=== PATIENT | female | born 1950 | race Caucasian/White ===

== ENCOUNTER 2016-05-04 02:30 | Emergency (ER) | payer MEDICARE, OTHER ==
[~2016-05-04] VITALS: Ht 154.9 cm; Wt 86.2 kg
[~2016-05-04 02:30] MED LIST: ACET1TAB37 PO; ASP81CT; ASPI-983 PO; ASPI-999 PO; CALC-913 PO; CALCIUM; CYCL10TA9 PO; DULO30CA3 PO; FAMO20TA3 PO; FAMO40TA72 PO; HCT25T; IBUP-1780 PO; IBUP-2055 PO; LABE100T2 PO; LEVO75TA PO; LOPE2CAP PO; LORA10TA76 PO; LOVA10TA PO; MELA1TAB15 PO; MELA5TAB14 PO; MELO15TA14 PO; MELO7.5T; METF500T4 PO; MULT-593 PO; MULTIVITAMIN; NF-LISIN40; OLME40TA16 PO; OMG1KC; OMG1KC PO; QUIN40TA PO; SENN-33 PO; SYNTHROID; TRAM50TA2 PO; TRIA1CAP4 PO; TRIA1TAB2 PO; TRM50T; VITA-189 PO; VITA150T PO; VITA2500 PO; VITA80006 PO; [UNRECOGNIZED DRUG - CODE]; [UNRECOGNIZED DRUG - OTHER] PO
[2016-05-04] MEDS ORDERED: NS IV 1000 ML 1,000 ML IV ONE (02:36)
--- NOTE | 2016-05-04 02:36 | ED GI ---
General Chief Complaint: Abdominal/GI Problems Stated Complaint: VOMITING,NAUSEA,DIARRHEA History of Present Illness Time Seen By Provider: 02:40 Initial Comments Patient reports nausea vomiting diarrhea that started around 10 PM. States she' s vomited numerous times. she has some crampiness and thinks she might be dehydrated. She tried some Zofran with minimal relief. pt denies fevers, chills , cough, sore throat. She does have some mild abdominal cramping. Allergies and Home Medications Allergies Coded Allergies: Sulfa (Sulfonamide Antibiotics) (Verified Allergy, Unknown, 03/05/08) codeine (Verified Allergy, Unknown, 03/05/08) meperidine (Verified Allergy, Unknown, 03/05/08) morphine (Verified Allergy, Unknown, 03/05/08) penicillin G (Verified Allergy, Unknown, 03/05/08) Home Medications Aspirin 81 Mg Tablet.dr 81 MG PO EVERY OTHER DAY (Reported) Calcium Carbonate/Vitamin D3 1 Each Tablet 1 TAB PO BID (Reported) Cyclobenzaprine HCl 10 Mg Tablet 10 MG PO DAILY PRN PRN MUSCLE SPASMS (Reported ) Duloxetine HCl 30 Mg Capsule.dr 30 MG PO DAILY (Reported) Labetalol HCl 100 Mg Tablet 100 MG PO BID (Reported) Levothyroxine Sodium 75 Mcg Tablet 75 MCG PO DAILY (Reported) Lovastatin 10 Mg Tablet 10 MG PO HS (Reported) Meloxicam 15 Mg Tablet 15 MG PO DAILY (Reported) Metformin HCl 500 Mg Tablet 500 MG PO BID (Reported) Multivitamin with Minerals 1 Each Tablet 1 TAB PO DAILY (Reported) Olmesartan Medoxomil 40 Mg Tablet 40 MG PO DAILY (Reported) [place] 3 Polyunsat Fatty Acids 1,000 Mg Cap 2,000 MG PO BID (Reported) TAKES 2 (1000MG) CAPSULES Quinapril HCl 40 Mg Tablet 40 MG PO EVENING (Reported) Tramadol HCl 50 Mg Tablet 50 MG PO TID PRN PRN PAIN (Reported) Review of Systems Constitutional: No chills, No fever Respiratory: No Symptoms Reported Cardiovascular: No Symptoms Reported Gastrointestinal: See HPI Genitourinary: No Symptoms Reported Musculoskeletal: no symptoms reported Skin: no symptoms reported Past Hcbygwo-Omrpjv-Kwtbaj Hx Patient Social History Recent Foreign Travel: No Contact w/Someone Who Travel: No Immunizations Up To Date Tetanus Booster (TDap): More than 5yrs Date of Influenza Vaccine: Jan 20, 2015 Surgeries HX Surgeries: Yes (LEFT RIB LYPOMA) Surgeries: Adenoidectomy, Appendectomy, Gallbladder, Hysterectomy, Tonsillectomy Respiratory Hx Respiratory Disorders: No Cardiovascular Hx Cardiac Disorders: Yes (bradycardia) Cardiac Disorders: Heart Murmur, Hypertension Neurological Hx Neurological Disorders: No Reproductive System Hx Reproductive Disorders: No Genitourinary Hx Genitourinary Disorders: No Gastrointestinal Hx Gastrointestinal Disorders: No Musculoskeletal Hx Musculoskeletal Disorders: Yes Musculoskeletal Disorders: Rheumatoid Arthritis Endocrine Hx Endocrine Disorders: Yes Endocrine Disorders: Hypothyroidsim, Diabetes, Non-Insulin dep HEENT HX ENT Disorders: No Cancer Hx Cancer: No Psychosocial Hx Psychiatric Problems: Yes Behavioral Health Disorders: Depression Integumentary HX Skin/Integumentary Disorder: No Blood Transfusions Hx Blood Disorders: Yes (OSTEOPENIA) Adverse Reaction to a Blood Tr: No Family Medical History Family Medial History: Cardiovascular disease 19 MOTHER, Onset:50's - 60 G8 BROTHER, Onset:30's - 40 G8 BROTHER, Onset:40's - 50 G8 BROTHER, Onset:30's - 40 Colon cancer 19 FATHER Diabetes mellitus 19 FATHER G8 SISTER, Onset:40's - 50 G8 SISTER G8 BROTHER Myocardial infarction G8 SISTER G8 SISTER Physical Exam Vital Signs VS - Last 72 Hours, by Label 05/04/16 05/04/16 02:35 03:41 Temp 97.7 97.7 Pulse 95 95 Resp 18 18 B/P 201/120 Pulse Ox 94 94 O2 Delivery Room Air Room Air Capillary Refill : General Appearance: WD/WN no apparent distress Respiratory: lungs clear normal breath sounds no respiratory distress Cardiovascular: regular rate, rhythm no edema Gastrointestinal: softNo distended, tenderness (very minimal tenderness diffusely) Neurologic/Psychiatric: alert oriented x 3 Skin: normal color warm/dry Progress/Results/Core Measures Results/Orders Lab Results Laboratory Tests Test 05/04/16 02:39 Range/Units Alanine Aminotransferase (ALT/SGPT) 25 0-55 U/L Albumin 4.3 3.2-4.5 G/DL Alkaline Phosphatase 64 40-136 U/L Anion Gap 14 5-14 MMOL/L Aspartate Amino Transf (AST/SGOT) 27 5-34 U/L BUN/Creatinine Ratio 23 Blood Urea Nitrogen 22 H 7-18 MG/DL Calcium Level 9.3 8.5-10.1 MG/DL Carbon Dioxide Level 23 21-32 MMOL/L Chloride Level 104 98-107 MMOL/L Creatinine 0.94 0.60-1.30 MG/DL Estimat Glomerular Filtration Rate 59 Glucose Level 126 H 70-105 MG/DL Potassium Level 3.9 3.6-5.0 MMOL/L Sodium Level 141 135-145 MMOL/L Total Bilirubin 0.5 0.1-1.0 MG/DL Total Protein 7.1 6.4-8.2 G/DL My Orders Orders-ROLANDO MOSLEY DO Comprehensive Metabolic Panel (05/04/16 02:36) Saline Lock/Iv-Start (05/04/16 02:36) Ns Iv 1000 Ml (Sodium Chloride 0.9%) (05/04/16 02:36) Ondansetron Injection (Zofran Injectio (05/04/16 02:45) Medications Given in ED Current Medications Medications Dose Ordered Sig/Winifred Route Start Time Stop Time Status Last Admin Dose Admin Ondansetron HCl 4 mg ONCE ONCE IVP 05/04/16 02:45 05/04/16 02:46 DC 05/04/16 02:50 4 MG Sodium Chloride 1,000 ml @ 0 mls/hr Q0M ONCE IV 05/04/16 02:36 05/04/16 02:39 DC 05/04/16 02:51 999 MLS/HR Vital Signs/I&O Vital Sign - Last 12Hours 05/04/16 05/04/16 02:35 03:41 Temp 97.7 97.7 Pulse 95 95 Resp 18 18 B/P 201/120 Pulse Ox 94 94 O2 Delivery Room Air Room Air Departure Impression Impression: Primary Impression: Viral gastroenteritis Disposition: 01 HOME, SELF-CARE Condition: Stable Departure-Patient Inst. Referrals: MARIO PAUL MD (PCP/Family) Primary Care Physician Patient Instructions: Viral Gastroenteritis, Adult (DC) ROLANDO MOSLEY DO May 04, 2016 02:36 ROLANDO MOSLEY DO May 04, 2016 02:36
[2016-05-04] MEDS ORDERED: METF500T4 PO (02:45)
[2016-05-04] MEDS ORDERED: ONDANSETRON 4 MG/2 ML (SDV) Z0FRAN IVP ONE (02:45)
[2016-05-04 03:10] LABS: ALBUMIN 4.3 G/DL (3.2-4.5); BILIRUBIN,TOTAL 0.5 MG/DL (0.1-1.0); CALCIUM 9.3 MG/DL (8.5-10.1); CREATININE SERUM 0.94 MG/DL (0.60-1.30); POTASSIUM 3.9 MMOL/L (3.6-5.0); TOTAL PROTEIN 7.1 G/DL (6.4-8.2)
[2016-05-04 03:41] VITALS: BP 189/103
== END 2016-05-04 03:41 | disposition home or self-care (01) ==
LOC: EDUNIT# 02:30 → ER 02:32
DX: K52.9 Noninfective gastroenteritis and colitis, unspecified (principal); E11.9 Type 2 diabetes mellitus without complications; I10 Essential (primary) hypertension; Z79.82 Long term (current) use of aspirin; Z79.84 Long term (current) use of oral hypoglycemic drugs; Z79.899 Other long term (current) drug therapy
CPT/HCPCS: 36415; 80053; 96361; 96374

== ENCOUNTER 2016-05-04 18:00 | Inpatient (IN) | payer MEDICARE, OTHER ==
[~2016-05-04] VITALS: Ht 154.9 cm; Wt 86.2 kg
--- OUTSIDE RECORDS SUMMARY | 2016-05-04 18:05 | XMS REPORT | Continuity of Care Document ---
Author Author [facility] Organization [facility] Address Unknown Phone Unavailable Care Team Providers Care Museum Director Name Role Phone MARIO PAUL MD PCP Insurance Providers Payer Name Policy Number Subscriber Name Relationship [employer] [id number] Vito Olguin 18 Self / Same As Patient [facility] [id number] Vito Olguin 16 Self / Same As Patient Advance Directives Directive Response Recorded Date/Time Advance Directives Yes 05/04/16 2:35am Health Care Power of Machinist Class B Yes 05/04/16 2:35am Organ Donor Yes 05/04/16 2:35am Resuscitation Status Full Code 05/04/16 2:35am Chief Complaint and Reason for Visit Chief Complaint Abdominal/GI Problems Reason for Visit Viral gastroenteritis Problems Active Problems Medical Problem Onset Date Status Dehydration Unknown Acute Diuretics causing adverse effect in therapeutic use Unknown Acute Viral gastroenteritis Unknown Acute Volume depletion Unknown Acute Medications Current Home Medications Medication Dose Units Route Directions Days/Qty Instructions Start Date Levothyroxine Sodium 75 Mcg 75 Mcg Oral Daily 01/30/15 Meloxicam 15 Mg 15 Mg Oral Daily 01/30/15 Duloxetine Hcl 30 Mg 30 Mg Oral Daily 01/30/15 Labetalol Hcl 100 Mg 100 Mg Oral Twice A Day 01/30/15 Quinapril Hcl 40 Mg 40 Mg Oral Evening 01/30/15 Olmesartan Medoxomil 40 Mg 40 Mg Oral Daily 01/30/15 Lovastatin 10 Mg 10 Mg Oral Bedtime 01/30/15 Tramadol Hcl 50 Mg 50 Mg Oral Three Times A Day as needed for Pain 01/30/15 [place] 3 Polyunsat Fatty Acids 1,000 Mg 2,000 Mg Oral Twice A Day TAKES 2 (1000MG) CAPSULES 01/30/15 Calcium Carbonate/Vitamin D3 1 Each 1 Tab Oral Twice A Day 01/30/15 Multivitamin With Minerals 1 Each 1 Tab Oral Daily 01/30/15 Aspirin 81 Mg 81 Mg Oral Every Other Day 01/31/15 Cyclobenzaprine Hcl 10 Mg 10 Mg Oral Daily as needed for Muscle Spasms 01/31/15 Metformin Hcl 500 Mg 500 Mg Oral Twice A Day 05/04/16 Past Home Medications Medication Directions Ordered Status Meloxicam 7.5 Mg Tablet, 03/05/08 Discontinued Tramadol Hcl 50 Mg Tab, 03/05/08 Discontinued Labetalol Hcl 100 Mg/20 Ml Soln, 03/05/08 Discontinued Hydrochlorothiazide 25 Mg Tab, 03/05/08 Discontinued Lisinopril 40 Mg Tab, 03/05/08 Discontinued [Synthroid .08] , 03/05/08 Discontinued Aspirin 81 Mg Chew, 03/05/08 Discontinued Fish Oil 1,000 Mg Cap, 03/05/08 Discontinued [Multivitamin] , 03/05/08 Discontinued [Calcium] , 03/05/08 Discontinued Metformin Hcl 500 Mg Tablet, 500 Mg Oral Twice A Day 01/30/15 Discontinued Ibuprofen 800 Mg Tablet, 800 Mg Oral Every 8HRS as needed for Pain 01/30/15 Discontinued Aspirin 81 Mg Tab.chew, 81 Mg Oral As Directed 01/30/15 Discontinued Melatonin 5 Mg Tablet, 5 Mg Oral Bedtime as needed for Insomnia 01/30/15 Discontinued Vitamin B Complex 1 Each Tablet, 1 Each Oral Afternoon 01/30/15 Discontinued Famotidine 40 Mg Tablet, 40 Mg Oral Twice A Day 01/30/15 Discontinued Loratadine 10 Mg Tablet, 10 Mg Oral Daily 01/30/15 Discontinued Triamterene/Hydrochlorothiazid 1 Each Capsule, 1 Each Oral Daily 01/30/15 Discontinued Vitamin A 25,000 Unit Capsule, 81130 Unit Oral Daily 01/30/15 Discontinued Ibuprofen 200 Mg Tablet, 800 Mg Oral Three Times A Day as needed for Pain Discontinued Melatonin/Pyridoxine 1 Each Tablet, 2.5 Mg Oral Bedtime as needed for Sleep 01/31/15 Discontinued Famotidine Tablet, 20 Mg Oral Twice A Day 01/31/15 Discontinued Triamterene/Hydrochlorothiazid 1 Each Tablet, 1 Tab Oral Daily 01/31/15 Discontinued Vitamin A 8,000 Unit Capsule, 8000 Unit Oral Daily 01/31/15 Discontinued Sennosides/Docusate Sodium 1 Each Tablet, 1 Tab Oral Twice A Day 01/31/15 Discontinued Vitamin B Complex & Vit C No.4 150 Mg Tablet, 1 Tab Oral Daily 01/31/15 Discontinued Loperamide Hcl 2 Mg Capsule, 2 Mg Oral As Directed as needed for Diarrhea Discontinued Acetaminophen/Chlorpheniramine 1 Each Tablet, 2 Tab Oral Every 4-6 Hours as needed for Cold 01/31/15 Discontinued [Zicam Rapidmelts] , 1 Tab Oral Every 6 Hours as needed for Cold Symptoms Discontinued Metformin Hcl 500 Mg Tablet, 250 Mg Oral Twice A Day 02/01/15 Discontinued Social History Social History Problem Response Recorded Date/Time Alcohol Use Denies Use 01/30/2015 1:14am Recreational Drug Use No 01/30/2015 1:14am Recent Foreign Travel No 05/04/2016 2:35am Recent Infectious Disease Exposure No 05/04/2016 2:35am Smoking Status Former Smoker 05/04/2016 2:35am Recent Hopitalizations No 05/04/2016 2:35am Query Response Start Date Stop Date Smoking Status Former Smoker Hospital Discharge Instructions No hospital discharge instructions. Plan of Care Discharge Date 05/04/16 3:41am Disposition 01 HOME, SELF-CARE Condition at Discharge Stable Instructions/Education Provided Viral Gastroenteritis, Adult (DC) Prescriptions See Medication Section Referrals MARIO PAUL MD - Primary Care Physician Functional Status No functional status results. Allergies, Adverse Reactions, Alerts Allergen Type Severity Reaction Status Last Updated Sulfa (Sulfonamide Antibiotics) ([id number]) Allergy Unknown Active 03/12 Morphine Allergy Unknown Active 03/05/08 Codeine Allergy Unknown Active 03/05/08 Meperidine Allergy Unknown Active 03/05/08 Penicillin g Allergy Unknown Active 03/05/08 Immunizations No immunization records. Vital Signs Acute Vital Signs Vital Response Date/Time Temperature (Fahrenheit) 97.7 degrees F (97.6 - 99.5) 05/04/2016 2:35am Temperature (Calculated Celsius) 36.58480 degrees C (36.4 - 37.5) 05/04/2016 2:35am Temperature Source Tympanic 05/04/2016 2:35am Pulse Rate (adult) 95 bpm (60 - 90) 05/04/2016 2:35am Respiratory Rate 18 bpm (12 - 24) 05/04/2016 2:35am O2 Sat by Pulse Oximetry 94 % (88 - 100) 05/04/2016 2:35am Blood Pressure 201/120 mm Hg 05/04/2016 2:35am Blood Pressure Mean 147 mm Hg 05/04/2016 2:35am Pain Numeric Pain Scale 9 05/04/2016 2:35am Height (Feet) 5 feet 05/04/2016 2:35am Height (Inches) 1 inches 05/04/2016 2:35am Height (Calculated Centimeters) 154.120085 cm 05/04/2016 2:35am Weight (Pounds) 190 pounds 05/04/2016 2:35am Weight (Calculated Kilograms) 86.248795 kilograms 05/04/2016 2:35am Capillary Refill Capillary Refill Less Than 3 Seconds 05/04/2016 2:35am Height 5 ft 1 in Weight 190 lb Body Mass Index 35.9 kg/m^2 Results Laboratory Results Test Name Result Units Flags Reference Collection Date/Time Result Date/ Time Comments Sodium Level 141 MMOL/L 135-145 05/04/2016 2:39am 05/04/2016 3:11am Potassium Level 3.9 MMOL/L 3.6-5.0 05/04/2016 2:39am 05/04/2016 3:11am Chloride Level 104 MMOL/L 98-107 05/04/2016 2:39am 05/04/2016 3:11am Carbon Dioxide Level 23 MMOL/L 21-32 05/04/2016 2:39am 05/04/2016 3: 11am Anion Gap 14 MMOL/L 5-14 05/04/2016 2:39am 05/04/2016 3:11am Blood Urea Nitrogen 22 MG/DL H 7-18 05/04/2016 2:39am 05/04/2016 3:11am Creatinine 0.94 MG/DL 0.60-1.30 05/04/2016 2:39am 05/04/2016 3:11am BUN/Creatinine Ratio 23 05/04/2016 2:39am 05/04/2016 3:11am Estimat Glomerular Filtration Rate 59 05/04/2016 2:39am 05/04/2016 3:11am GFR INTERPRETIVE DATA UNITS FOR ESTIMATED GFR (eGFR): mL/min/1.73 M2 REFERENCE RANGE FOR ESTIMATED GFR (eGFR) eGFR NORMAL eGFR >60 MODERATELY DECREASED eGFR 30-59 SEVERLY DECREASED eGFR 15-29 KIDNEY FAILURE <15 (OR DIALYSIS) Glucose Level 126 MG/DL H 70-105 05/04/2016 2:39am 05/04/2016 3:11am Calcium Level 9.3 MG/DL 8.5-10.1 05/04/2016 2:39am 05/04/2016 3:11am Total Bilirubin 0.5 MG/DL 0.1-1.0 05/04/2016 2:39am 05/04/2016 3:11am Alkaline Phosphatase 64 U/L 40-136 05/04/2016 2:39am 05/04/2016 3:11am Aspartate Amino Transf (AST/SGOT) 27 U/L 5-34 05/04/2016 2:39am 2016 3:11am Alanine Aminotransferase (ALT/SGPT) 25 U/L 0-55 05/04/2016 2:39am 05/04 3:11am Total Protein 7.1 G/DL 6.4-8.2 05/04/2016 2:39am 05/04/2016 3:11am Albumin 4.3 G/DL 3.2-4.5 05/04/2016 2:39am 05/04/2016 3:11am Procedures No known history of procedures. Encounters Encounter Location Arrival/Admit Date Discharge/Depart Date Attending Provider Departed Emergency Room [facility] 05/04/16 2:32am 05/04 3:41am ROLANDO MOSLEY DO Recent Diagnosis
[2016-05-04] MEDS ORDERED: LACTATED RINGERS 1,000 ML IV ONE (18:40)
[2016-05-04] MEDS ORDERED: FAMOTIDINE 20MG/2ML IV (PEPCID) IVP ONE (19:00)
[2016-05-04] MEDS ORDERED: KETOROLAC 30 MG/ML VIAL IVP ONE (19:00)
[2016-05-04] MEDS ORDERED: ONDANSETRON 4 MG/2 ML (SDV) Z0FRAN IVP ONE (19:00)
[2016-05-04 19:02] LABS: BASOPHILS % (AUTO) 0 % (0-10); EOSINOPHILS # (AUTO) 0.1 10^3/uL (0.0-0.3); EOSINOPHILS % (AUTO) 1 % (0-10); LYMPHOCYTES # (AUTO) 0.6 X 10^3 (1.0-4.0); LYMPHOCYTES % (AUTO) 8 % (12-44); MEAN CORPUSCULAR HEMOGLOBIN 31 PG (25-34); MEAN CORPUSCULAR HGB CONC 33 G/DL (32-36); MEAN CORPUSCULAR VOLUME 91 FL (80-99); MEAN PLATELET VOLUME 9.3 FL (7.4-10.4); MONOCYTES # (AUTO) 0.5 X 10^3 (0.0-1.0); MONOCYTES % (AUTO) 8 % (0-12); NEUTROPHILS # (AUTO) 5.6 X 10^3 (1.8-7.8); NEUTROPHILS % (AUTO) 83 % (42-75); PLATELET COUNT 219 10^3/uL (130-400); RED BLOOD COUNT 4.62 10^6/uL (4.35-5.85); RED CELL DISTRIBUTION WIDTH 13.5 % (10.0-14.5); WHITE BLOOD COUNT 6.7 10^3/uL (4.3-11.0)
--- NOTE | 2016-05-04 19:14 | ED Abdominal Pain ---
General Chief Complaint: Abdominal/GI Problems Stated Complaint: HEADACHE/PAIN IN ARMS, LEGS, BACK/VOMITING Nursing Triage Note: c/o vomiting/diarrhea/headache since early this morning. Sepsis Screen: No Definite Risk Source of Information: Patient, Old Records Exam Limitations: No Limitations History of Present Illness Time Seen By Provider: 18:40 Initial Comments This pleasant 65-year-old woman presents to the emergency room for a repeat visit related to nausea, vomiting, and diarrhea. She now has fever of 101.9. She has tried Zofran and Imodium at home which were not very effective. She was seen early this morning in this ER, hydrated, and given IV Zofran. Symptoms persist despite treatment. She has had intense headache since yesterday as well. She denies any respiratory or urinary symptoms other than oliguria. She has intermittent abdominal pain associated with the vomiting and diarrhea that seems to be generalized in nature. Her primary care provider is Dr. Barboza. Mucous membranes appear extremely dry. She was notably hypertensive which may be related to pain and her inability to keep medications down today. Blood pressure will be treated as necessary. She has been experiencing muscle cramping. A muscle relaxer did not improve her cramps or muscle pain. Allergies and Home Medications Allergies Coded Allergies: Sulfa (Sulfonamide Antibiotics) (Verified Allergy, Unknown, 03/05/08) codeine (Verified Allergy, Unknown, 03/05/08) meperidine (Verified Allergy, Unknown, 03/05/08) morphine (Verified Allergy, Unknown, 03/05/08) penicillin G (Verified Allergy, Unknown, 03/05/08) Home Medications Aspirin 81 Mg Tablet.dr 81 MG PO EVERY OTHER DAY (Reported) Calcium Carbonate/Vitamin D3 1 Each Tablet 1 TAB PO BID (Reported) Cyclobenzaprine HCl 10 Mg Tablet 10 MG PO DAILY PRN PRN MUSCLE SPASMS (Reported ) Duloxetine HCl 30 Mg Capsule.dr 30 MG PO DAILY (Reported) Labetalol HCl 100 Mg Tablet 100 MG PO BID (Reported) Levothyroxine Sodium 75 Mcg Tablet 75 MCG PO DAILY (Reported) Lovastatin 10 Mg Tablet 10 MG PO HS (Reported) Meloxicam 15 Mg Tablet 15 MG PO DAILY (Reported) Metformin HCl 500 Mg Tablet 500 MG PO BID (Reported) Multivitamin with Minerals 1 Each Tablet 1 TAB PO DAILY (Reported) Olmesartan Medoxomil 40 Mg Tablet 40 MG PO DAILY (Reported) [place] 3 Polyunsat Fatty Acids 1,000 Mg Cap 2,000 MG PO BID (Reported) TAKES 2 (1000MG) CAPSULES Quinapril HCl 40 Mg Tablet 40 MG PO EVENING (Reported) Tramadol HCl 50 Mg Tablet 50 MG PO TID PRN PRN PAIN (Reported) Review of Systems Constitutional: see HPI EENTM: See HPI Respiratory: No Symptoms Reported Cardiovascular: No Symptoms Reported Gastrointestinal: See HPI Genitourinary: See HPI (oliguria) Musculoskeletal: no symptoms reported Skin: no symptoms reported Psychiatric/Neurological: No Symptoms Reported Endocrine: No Symptoms Reported Hematologic/Lymphatic: No Symptoms Reported Past Apdabnp-Liiiwt-Biesdn Hx Patient Social History Alcohol Use: Denies Use Recreational Drug Use: No Smoking Status: Never a Smoker Recent Foreign Travel: No Contact w/Someone Who Travel: No Recent Infectious Disease Expo: No Recent Hopitalizations: No Physical Abuse Screen: No Sexual Abuse: No Immunizations Up To Date Tetanus Booster (TDap): More than 5yrs Date of Influenza Vaccine: Jan 20, 2015 Seasonal Allergies Seasonal Allergies: No Surgeries HX Surgeries: Yes (LEFT RIB LYPOMA) Surgeries: Adenoidectomy, Appendectomy, Gallbladder, Hysterectomy, Tonsillectomy Respiratory Hx Respiratory Disorders: No Cardiovascular Hx Cardiac Disorders: Yes (bradycardia) Cardiac Disorders: Heart Murmur, Hypertension Neurological Hx Neurological Disorders: No Reproductive System Hx Reproductive Disorders: No Genitourinary Hx Genitourinary Disorders: No Gastrointestinal Hx Gastrointestinal Disorders: No Musculoskeletal Hx Musculoskeletal Disorders: Yes Musculoskeletal Disorders: Rheumatoid Arthritis Endocrine Hx Endocrine Disorders: Yes Endocrine Disorders: Hypothyroidsim, Diabetes, Non-Insulin dep HEENT HX ENT Disorders: No Cancer Hx Cancer: No Psychosocial Hx Psychiatric Problems: Yes Behavioral Health Disorders: Depression Integumentary HX Skin/Integumentary Disorder: No Blood Transfusions Hx Blood Disorders: Yes (OSTEOPENIA) Adverse Reaction to a Blood Tr: No Family Medical History Family Medial History: Cardiovascular disease 19 MOTHER, Onset:50's - 60 G8 BROTHER, Onset:30's - 40 G8 BROTHER, Onset:40's - 50 G8 BROTHER, Onset:30's - 40 Colon cancer 19 FATHER Diabetes mellitus 19 FATHER G8 SISTER, Onset:40's - 50 G8 SISTER G8 BROTHER Myocardial infarction G8 SISTER G8 SISTER Physical Exam Vital Signs VS - Last 72 Hours, by Label 05/04/16 05/04/16 05/04/16 18:24 18:59 19:46 Temp 101.9 101.9 101.0 Pulse 90 Resp 18 B/P 204/102 Pulse Ox 94 O2 Delivery Room Air Capillary Refill : Less Than 3 Seconds General Appearance: WD/WN mild distress HEENT: PERRL/EOMI other (mucous membranes very dry) Neck: normal inspection Respiratory: lungs clear normal breath sounds no respiratory distress no accessory muscle use Cardiovascular: no edema no murmur tachycardia Gastrointestinal: normal bowel sounds soft tenderness (generalized) Extremities: normal inspection no pedal edema 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 no motor/sensory deficits alert normal mood/affect oriented x 3 Skin: normal color warm/dry Progress/Results/Core Measures Results/Orders Lab Results Laboratory Tests Test 05/04/16 18:55 05/04/16 19:10 Range/Units Alanine Aminotransferase (ALT/SGPT) 32 0-55 U/L Albumin 4.3 3.2-4.5 G/DL Alkaline Phosphatase 64 40-136 U/L Anion Gap 11 5-14 MMOL/L Aspartate Amino Transf (AST/SGOT) 31 5-34 U/L BUN/Creatinine Ratio 18 Basophils # (Auto) 0.0 0.0-0.1 10^3/uL Basophils (%) (Auto) 0 0-10 % Blood Urea Nitrogen 17 7-18 MG/DL Calcium Level 8.6 8.5-10.1 MG/DL Carbon Dioxide Level 24 21-32 MMOL/L Chloride Level 104 98-107 MMOL/L Creatinine 0.95 0.60-1.30 MG/DL Eosinophils # (Auto) 0.1 0.0-0.3 10^3/uL Eosinophils (%) (Auto) 1 0-10 % Estimat Glomerular Filtration Rate 59 Free Thyroxine 0.92 0.70-1.48 NG/DL Glucose Level 123 H 70-105 MG/DL Hematocrit 42 35-52 % Hemoglobin 14.1 11.5-16.0 G/DL Lymphocytes # (Auto) 0.6 L 1.0-4.0 X 10^3 Lymphocytes (%) (Auto) 8 L 12-44 % Magnesium Level 1.6 L 1.8-2.4 MG/DL Mean Corpuscular Hemoglobin 31 25-34 PG Mean Corpuscular Hemoglobin Concent 33 32-36 G/DL Mean Corpuscular Volume 91 80-99 FL Mean Platelet Volume 9.3 7.4-10.4 FL Monocytes # (Auto) 0.5 0.0-1.0 X 10^3 Monocytes (%) (Auto) 8 0-12 % Neutrophils # (Auto) 5.6 1.8-7.8 X 10^3 Neutrophils (%) (Auto) 83 H 42-75 % Platelet Count 219 130-400 10^3/uL Potassium Level 3.5 L 3.6-5.0 MMOL/L Red Blood Count 4.62 4.35-5.85 10^6/uL Red Cell Distribution Width 13.5 10.0-14.5 % Sodium Level 139 135-145 MMOL/L Thyroid Stimulating Hormone (TSH) 0.51 0.35-4.94 UIU/ML Total Bilirubin 0.5 0.1-1.0 MG/DL Total Creatine Kinase 43 29-168 U/L Total Protein 7.0 6.4-8.2 G/DL White Blood Count 6.7 4.3-11.0 10^3/uL Urine Bacteria FEW H /HPF Urine Bilirubin NEGATIVE NEGATIVE Urine Casts NONE /LPF Urine Clarity CLEAR Urine Color YELLOW Urine Crystals NONE /LPF Urine Culture Indicated NO Urine Glucose (UA) NEGATIVE NEGATIVE Urine Ketones NEGATIVE NEGATIVE Urine Leukocyte Esterase 1+ H NEGATIVE Urine Mucus NEGATIVE /LPF Urine Nitrite NEGATIVE NEGATIVE Urine Protein 2+ H NEGATIVE Urine RBC 0-2 /HPF Urine RBC (Auto) 4+ H NEGATIVE Urine Specific [place] 1.015 L 1.016-1.022 Urine Squamous Epithelial Cells 5-10 /HPF Urine Urobilinogen NORMAL NORMAL MG/DL Urine WBC 2-5 /HPF Urine pH 5 5-9 My Orders Orders-MICHAELA CARTER MD Cbc With Automated Diff (05/04/16 18:40) Comprehensive Metabolic Panel (05/04/16 18:40) Ua Culture If Indicated (05/04/16 18:40) Saline Lock/Iv-Start (05/04/16 18:40) Lactated Ringers (Lr 1000 Ml Iv Solution (05/04/16 18:40) Magnesium (05/04/16 18:40) Ondansetron Injection (Zofran Injectio (05/04/16 19:00) Famotidine Injection (Pepcid Injection) (05/04/16 19:00) Ketorolac Injection (Toradol Injection) (05/04/16 19:00) Labetalol Injection (Normodyne Injection (05/04/16 19:30) Thyroid Stimulating Hormone (05/04/16 19:19) Free T4 (Free Thyroxine) (05/04/16 19:19) Chest 1 View, Ap/Pa Only (05/04/16 19:20) Hyoscyamine Sl Tablet (Levsin Sl Tablet) (05/04/16 19:30) Fentanyl Injection (Sublimaze Injection (05/04/16 19:45) Creatine Kinase (05/04/16 19:37) Medications Given in ED Current Medications Medications Dose Ordered Sig/Winifred Route Start Time Stop Time Status Last Admin Dose Admin Famotidine 20 mg ONCE ONCE IVP 05/04/16 19:00 05/04/16 19:01 DC 05/04/16 19:00 20 MG Fentanyl Citrate 25 mcg ONCE ONCE IVP 05/04/16 19:45 05/04/16 19:46 DC 05/04/16 19:46 25 MCG Hyoscyamine Sulfate 0.25 mg ONCE ONCE PO 05/04/16 19:30 05/04/16 19:31 DC 05/04/16 19:34 0.25 MG Ketorolac Tromethamine 15 mg ONCE ONCE IVP 05/04/16 19:00 05/04/16 19:01 DC 05/04/16 18:59 15 MG Labetalol HCl 10 mg ONCE ONCE IV 05/04/16 19:30 05/04/16 19:31 DC 05/04/16 19:35 10 MG Lactated Ringer's 1,000 ml @ 0 mls/hr Q0M ONCE IV 05/04/16 18:40 05/04/16 18:41 DC 05/04/16 18:57 0 MLS/HR Ondansetron HCl 8 mg ONCE ONCE IVP 05/04/16 19:00 05/04/16 19:01 DC 05/04/16 19:00 8 MG Vital Signs/I&O Vital Sign - Last 12Hours 05/04/16 05/04/16 05/04/16 18:24 18:59 19:46 Temp 101.9 101.9 101.0 Pulse 90 Resp 18 B/P 204/102 Pulse Ox 94 O2 Delivery Room Air Intake and Output 05/05/16 00:00 Intake Total 1000 ml Balance 1000 ml Blood Pressure Mean: 136 Progress Note #1: Time: 19:18 Progress Note She is being given Zofran and Pepcid for her GI symptoms. IV fluids are infusing. Labs pending. Levsin will be added to reduce cramping and diarrhea. Toradol was given for headache. Progress Note #2: Progress Note Patient improved significantly with treatment. Labetalol 10 mg IV was administered for hypertensive urgency. With treatment of labetalol and control of pain, blood pressure improved significantly. Her home medications will be administered on the floor which should help control her blood pressure. A liter of IV fluids was administered. Levsin helped with abdominal cramping. Patient will be admitted for observation of her blood pressures and control of her symptoms. Departure Communication Time/Spoke to Admitting Phy: 20:[address] Christina was contacted and excepts admission for observation. He agrees with symptomatic management, IV fluids, and call parameters for blood pressure. Impression Impression: Primary Impression: Nausea vomiting and diarrhea Additional Impressions: Generalized abdominal pain Abdominal cramping Acute headache Qualified Code: R51 - Headache Hypertensive urgency Fever Qualified Code: R50.9 - Fever, unspecified Disposition: ADMITTED INPATIENT Condition: Improved Decision to Admit Reason: Admit from ER (General) Decision to Admit/Date: May 04, 2016 Time/Decision to Admit Time: 17:00 Departure-Patient Inst. Referrals: MARIO BARBOZA MD (PCP/Family) Primary Care Physician MICHAELA CARTER MD May 04, 2016 19:14
[2016-05-04 19:19] LABS: BILIRUBIN,URINE NEGATIVE (NEGATIVE); KETONES,URINE NEGATIVE (NEGATIVE); LEUKOCYTE ESTERASE ,URINE 1+ (NEGATIVE); NITRITE,URINE NEGATIVE (NEGATIVE); PH,URINE 5 (5-9); PROTEIN,URINE 2+ (NEGATIVE); UROBILINOGEN,URINE NORMAL (NORMAL)
[2016-05-04 19:28] LABS: ALBUMIN 4.3 G/DL (3.2-4.5); BILIRUBIN,TOTAL 0.5 MG/DL (0.1-1.0); CALCIUM 8.6 MG/DL (8.5-10.1); CREATININE SERUM 0.95 MG/DL (0.60-1.30); MAGNESIUM 1.6 MG/DL (1.8-2.4); POTASSIUM 3.5 MMOL/L (3.6-5.0)
[2016-05-04] MEDS ORDERED: HYOSCYAMINE 0.125 MG (LEVSIN) TAB PO ONE (19:30)
[2016-05-04] MEDS ORDERED: LABETALOL HCL 20 MG/4 ML VIAL IV ONE (19:30)
[2016-05-04] MEDS ORDERED: fentaNYL INJECTION 100 MCG/2 ML AMP IVP ONE (19:45)
--- NOTE | 2016-05-04 19:51 | Diagnostic Imaging Report ---
Indication: Vomiting, diarrhea headache Portable chest 7:34 PM Heart size and pulmonary vascularity are normal. Lungs are clear. There are no effusions or pneumothoraces. Impression: Negative chest Dictated by: Dictated on workstation # [id number]
[2016-05-04 20:04] LABS: THYROID STIMULATING HORMONE 0.51 UIU/ML (0.35-4.94)
[2016-05-04] MEDS ORDERED: D5 1/2 NS W/KCL 20 MEQ/L 1,000 ML IV ONE (22:30)
[2016-05-04] MEDS: D5 1/2 NS W/KCL 20 MEQ/L 1,000 ML IV SCH (22:41)
[2016-05-04] MEDS ORDERED: PROMETHAZINE INJ 25 MG/ML (PHENERGAN) AMP IV PRN (22:45)
[2016-05-04] MEDS: HYOSCYAMINE 0.125 MG (LEVSIN) TAB SL PRN (22:59)
[2016-05-04] MEDS: fentaNYL INJECTION 100 MCG/2 ML AMP IV PRN (22:59)
[2016-05-04 23:00] VITALS: BP 189/91
[2016-05-04] MEDS ORDERED: LABETALOL 200 MG (NORMODYNE) TAB PO ONE (23:44)
[2016-05-04] MEDS ORDERED: OLMESARTAN 20 MG (BENICAR) TABLET ONE (23:53)
[2016-05-04] MEDS: OLMESARTAN 20 MG (BENICAR) TABLET PO SCH (23:54)
[2016-05-04] MEDS: ACETAMINOPHEN 500 MG TAB (TYLENOL) PO PRN (23:58)
[2016-05-05] VITALS (8 sets, daily range): BP systolic 151–175; BP diastolic 74–88
[2016-05-05] MEDS: KETOROLAC 30 MG/ML VIAL IV PRN ×2 (02:22→14:02)
[2016-05-05] MEDS: fentaNYL INJECTION 100 MCG/2 ML AMP IV PRN ×3 (04:26→23:16)
[2016-05-05] MEDS: HYOSCYAMINE 0.125 MG (LEVSIN) TAB SL PRN ×3 (04:28→21:31)
[2016-05-05 05:25] LABS: BASOPHILS % (AUTO) 0 % (0-10); EOSINOPHILS % (AUTO) 0 % (0-10); LYMPHOCYTES # (AUTO) 0.8 X 10^3 (1.0-4.0); LYMPHOCYTES % (AUTO) 14 % (12-44); MEAN CORPUSCULAR HEMOGLOBIN 31 PG (25-34); MEAN CORPUSCULAR HGB CONC 33 G/DL (32-36); MEAN CORPUSCULAR VOLUME 92 FL (80-99); MEAN PLATELET VOLUME 9.3 FL (7.4-10.4); MONOCYTES # (AUTO) 0.3 X 10^3 (0.0-1.0); MONOCYTES % (AUTO) 5 % (0-12); NEUTROPHILS # (AUTO) 4.6 X 10^3 (1.8-7.8); NEUTROPHILS % (AUTO) 80 % (42-75); PLATELET COUNT 182 10^3/uL (130-400); RED BLOOD COUNT 4.19 10^6/uL (4.35-5.85); RED CELL DISTRIBUTION WIDTH 13.5 % (10.0-14.5); WHITE BLOOD COUNT 5.8 10^3/uL (4.3-11.0)
[2016-05-05 05:47] LABS: ALBUMIN 3.6 G/DL (3.2-4.5); BILIRUBIN,TOTAL 0.5 MG/DL (0.1-1.0); CALCIUM 8.2 MG/DL (8.5-10.1); CREATININE SERUM 1.04 MG/DL (0.60-1.30); MAGNESIUM 1.5 MG/DL (1.8-2.4); POTASSIUM 3.5 MMOL/L (3.6-5.0); TOTAL PROTEIN 5.9 G/DL (6.4-8.2)
[2016-05-05] MEDS: D5 1/2 NS W/KCL 20 MEQ/L 1,000 ML IV SCH ×3 (06:41→20:17)
--- NOTE | 2016-05-05 08:35 | History & Physicial ---
History of Present Illness History of Present Illness Reason for visit/HPI patient states she is feeling rough. Last night was patient second time to the emergency room. Patient being treated for nausea and vomiting and diarrhea. Patient has malignant hypertension at this moment. Has hypomagnesemia. Fever 101.9. Patient has been on Zofran and Imodium without success. Patient admitted. Surgeries. Consults and gallbladder and hysterectomy. Patient states she has headache and dizziness Date of Admission May 04, 2016 at 21:24 I consulted on this patient on 05/05/16 08:30 Attending Physician Marcie Barboza MD Admitting Physician Marcie Barboza MD Consult Allergies and Home Medications Allergies Coded Allergies: Sulfa (Sulfonamide Antibiotics) (Verified Allergy, Unknown, 03/05/08) codeine (Verified Allergy, Unknown, 03/05/08) meperidine (Verified Allergy, Unknown, 03/05/08) morphine (Verified Allergy, Unknown, 03/05/08) penicillin G (Verified Allergy, Unknown, 03/05/08) Home Medications Aspirin 81 Mg Tablet.dr 81 MG PO EVERY OTHER DAY (Reported) Calcium Carbonate/Vitamin D3 1 Each Tablet 1 TAB PO BID (Reported) Cyclobenzaprine HCl 10 Mg Tablet 10 MG PO DAILY PRN PRN MUSCLE SPASMS (Reported ) Duloxetine HCl 30 Mg Capsule.dr 30 MG PO DAILY (Reported) Labetalol HCl 100 Mg Tablet 100 MG PO BID (Reported) Levothyroxine Sodium 75 Mcg Tablet 75 MCG PO DAILY (Reported) Lovastatin 10 Mg Tablet 10 MG PO HS (Reported) Meloxicam 15 Mg Tablet 15 MG PO DAILY (Reported) Metformin HCl 500 Mg Tablet 500 MG PO BID (Reported) Multivitamin with Minerals 1 Each Tablet 1 TAB PO DAILY (Reported) Olmesartan Medoxomil 40 Mg Tablet 40 MG PO DAILY (Reported) [place] 3 Polyunsat Fatty Acids 1,000 Mg Cap 2,000 MG PO BID (Reported) TAKES 2 (1000MG) CAPSULES Quinapril HCl 40 Mg Tablet 40 MG PO EVENING (Reported) Tramadol HCl 50 Mg Tablet 50 MG PO TID PRN PRN PAIN (Reported) Past Jfonmkn-[place]-Rtdfcw Hx Patient Social History Alcohol Use: Denies Use Recreational Drug Use: No Smoking Status: Never a Smoker Physical Abuse Screen: No Sexual Abuse: No Recent Foreign Travel: No Contact w/other who traveled: No Recent Hopitalizations: No Recent Infectious Disease Expo: No Immunizations Up To Date Tetanus Booster (TDap): More than 5yrs Date of Influenza Vaccine: Jan 21, 2016 Seasonal Allergies Seasonal Allergies: No Surgeries HX Surgeries: Yes (LEFT RIB LYPOMA) Surgeries: Adenoidectomy, Appendectomy, Gallbladder, Hysterectomy, Tonsillectomy Respiratory Hx Respiratory Disorders: No Cardiovascular Hx Cardiovascular Disorders: Yes (bradycardia) Cardiac Disorders: Heart Murmur, Hypertension Neurological Hx Neurological Disorders: No Reproductive System Hx Reproductive Disorders: No Genitourinary Hx Genitourinary Disorders: No Gastrointestinal Hx Gastrointestinal Disorders: No Musculoskeletal Hx Musculoskeletal Disorders: Yes Musculoskeletal Disorders: Rheumatoid Arthritis Endocrine Hx Endocrine Disorders: Yes Endocrine Disorders: Hypothyroidsim, Diabetes, Non-Insulin dep HEENT HX ENT Disorders: No Cancer Hx Cancer: No Psychosocial Hx Psychiatric Problems: Yes Behavioral Health Disorders: Depression Integumentary HX Skin/Integumentary Disorder: No Blood Transfusions Hx Blood Disorders: Yes (OSTEOPENIA) Adverse Reaction to a Blood Tr: No Family Medical History Family Hx: Cardiovascular disease 19 MOTHER, Onset:50's - 60 G8 BROTHER, Onset:30's - 40 G8 BROTHER, Onset:40's - 50 G8 BROTHER, Onset:30's - 40 Colon cancer 19 FATHER Diabetes mellitus 19 FATHER G8 SISTER, Onset:40's - 50 G8 SISTER G8 BROTHER Myocardial infarction G8 SISTER G8 SISTER Constitutional: fever malaise weakness other (dry vomit dehydrated) EENTM: no symptoms reported Respiratory: no symptoms reported Cardiovascular: no symptoms reported Gastrointestinal: diarrhea nausea vomiting Genitourinary: no symptoms reported Physical Exam Vital Signs Vital Sign - Last 12Hours 05/04/16 18:24 Temp 101.9 Pulse 90 Resp 18 B/P 204/102 Pulse Ox 94 O2 Delivery Room Air Capillary Refill : Less Than 3 Seconds General Appearance: No Apparent Distress Mild Distress Eyes: Bilateral Eye Normal Inspection HEENT: Normal ENT Inspection Neck: Full Range of Motion Normal Inspection Non Tender Respiratory: Lungs Clear Normal Breath Sounds No Accessory Muscle Use No Respiratory Distress Cardiovascular: Regular Rate, Rhythm No Murmur Gastrointestinal: Non Tender Soft Assessment/Plan Assessment and Plan nausea and vomiting. Diarrhea. Headache. Malignant hypertension. Clinical Quality Measures DVT/VTE Risk/Contraindication: Risk Factor Score Per Nursin RFS Level Per Nursing on Admit: 4+=Very High SHERRY WHITE DO May 05, 2016 08:34
[2016-05-05] MEDS ORDERED: NON-FORMULARY MEDICATION 1 EA EA (Olmesartan Medoxomil (Benicar) 40 MG) PO SCH (09:00)
[2016-05-05] MEDS ORDERED: NON-FORMULARY MEDICATION 1 EA EA (Labetalol HCl 100 MG) PO SCH (09:00)
[2016-05-05] MEDS: OLMESARTAN 20 MG (BENICAR) TABLET PO SCH (09:13)
[2016-05-05] MEDS: LABETALOL 200 MG (NORMODYNE) TAB PO SCH ×2 (09:14→21:29)
[2016-05-05] MEDS: DULoxetine 30 MG (CYMBALTA) CAP PO SCH (10:30)
[2016-05-05] MEDS: MAGNESIUM 1 GM/100 ML IVPB 100 ML IV SCH ×2 (10:30→13:03)
[2016-05-05] MEDS: ENOXAPARIN 40 MG/0.4 ML (LOVENOX) SYR SC SCH (10:31)
[2016-05-05] MEDS: LEVOTHYROXINE 75 MCG (LEVOTHROID) TABLET PO SCH (10:31)
[2016-05-05] MEDS: ACETAMINOPHEN 500 MG TAB (TYLENOL) PO PRN ×2 (11:29→20:22)
[2016-05-06] VITALS (7 sets, daily range): BP systolic 142–186; BP diastolic 70–87
[2016-05-06] MEDS: ACETAMINOPHEN 500 MG TAB (TYLENOL) PO PRN (01:22)
[2016-05-06] MEDS: metroNIDAZOLE 500MG/100ML IVPB 100 ML IV SCH ×4 (01:23→22:03)
[2016-05-06] MEDS: KETOROLAC 30 MG/ML VIAL IV PRN ×2 (01:30→12:57)
[2016-05-06 01:46] LABS: BASOPHILS % (AUTO) 0 % (0-10); EOSINOPHILS % (AUTO) 0 % (0-10); LYMPHOCYTES # (AUTO) 0.2 X 10^3 (1.0-4.0); LYMPHOCYTES % (AUTO) 4 % (12-44); MEAN CORPUSCULAR HEMOGLOBIN 30 PG (25-34); MEAN CORPUSCULAR HGB CONC 33 G/DL (32-36); MEAN CORPUSCULAR VOLUME 92 FL (80-99); MEAN PLATELET VOLUME 9.5 FL (7.4-10.4); MONOCYTES % (AUTO) 1 % (0-12); NEUTROPHILS # (AUTO) 3.3 X 10^3 (1.8-7.8); NEUTROPHILS % (AUTO) 95 % (42-75); PLATELET COUNT 133 10^3/uL (130-400); RED BLOOD COUNT 4.57 10^6/uL (4.35-5.85); RED CELL DISTRIBUTION WIDTH 13.4 % (10.0-14.5); WHITE BLOOD COUNT 3.5 10^3/uL (4.3-11.0)
[2016-05-06 02:03] LABS: ALBUMIN 3.7 G/DL (3.2-4.5); CALCIUM 8.1 MG/DL (8.5-10.1); CREATININE SERUM 0.99 MG/DL (0.60-1.30); POTASSIUM 3.7 MMOL/L (3.6-5.0); TOTAL PROTEIN 6.2 G/DL (6.4-8.2)
[2016-05-06] MEDS: ONDANSETRON 4 MG/2 ML (SDV) Z0FRAN IV PRN ×2 (02:10→17:36)
[2016-05-06] MEDS ORDERED: IBUPROFEN TABLET 200 MG TAB PO PRN (02:15)
[2016-05-06] MEDS: LEVOFLOXACIN 750 MG/150 ML IV 150 ML IV SCH ×2 (02:57→08:56)
[2016-05-06] MEDS: HYOSCYAMINE 0.125 MG (LEVSIN) TAB SL PRN ×3 (03:45→20:52)
[2016-05-06] MEDS: fentaNYL INJECTION 100 MCG/2 ML AMP IV PRN (03:49)
[2016-05-06] MEDS: LEVOTHYROXINE 75 MCG (LEVOTHROID) TABLET PO SCH (06:07)
[2016-05-06 06:12] LABS: BASOPHILS % (AUTO) 0 % (0-10); EOSINOPHILS % (AUTO) 0 % (0-10); LYMPHOCYTES # (AUTO) 0.2 X 10^3 (1.0-4.0); LYMPHOCYTES % (AUTO) 4 % (12-44); MEAN CORPUSCULAR HEMOGLOBIN 31 PG (25-34); MEAN CORPUSCULAR HGB CONC 34 G/DL (32-36); MEAN CORPUSCULAR VOLUME 92 FL (80-99); MEAN PLATELET VOLUME 9.3 FL (7.4-10.4); MONOCYTES # (AUTO) 0.1 X 10^3 (0.0-1.0); MONOCYTES % (AUTO) 1 % (0-12); NEUTROPHILS # (AUTO) 5.1 X 10^3 (1.8-7.8); NEUTROPHILS % (AUTO) 96 % (42-75); PLATELET COUNT 122 10^3/uL (130-400); RED BLOOD COUNT 3.91 10^6/uL (4.35-5.85); RED CELL DISTRIBUTION WIDTH 13.1 % (10.0-14.5); WHITE BLOOD COUNT 5.3 10^3/uL (4.3-11.0)
[2016-05-06 06:29] LABS: ALANINE AMINOTRANSFERASE 507 U/L (0-55); ALBUMIN 3.1 G/DL (3.2-4.5); ANION GAP 9 MMOL/L (5-14); ASPARTATE AMINO TRANSFERASE 669 U/L (5-34); BILIRUBIN,TOTAL 0.6 MG/DL (0.1-1.0); BLOOD UREA NITROGEN 12 MG/DL (7-18); BUN/CREATININE RATIO 14; CALCIUM 7.5 MG/DL (8.5-10.1); CARBON DIOXIDE 19 MMOL/L (21-32); CHLORIDE 104 MMOL/L (98-107); CREATININE SERUM 0.87 MG/DL (0.60-1.30); GFR ESTIMATED > 60; GLUCOSE 150 MG/DL (70-105); MAGNESIUM 1.7 MG/DL (1.8-2.4); POTASSIUM 3.5 MMOL/L (3.6-5.0); SODIUM 132 MMOL/L (135-145); TOTAL PROTEIN 5.2 G/DL (6.4-8.2)
--- NOTE | 2016-05-06 08:44 | Diagnostic Imaging Report ---
INDICATION: Hypoxia. COMPARISON: 05/04. FINDINGS: Enlargement of the cardiac silhouette increased. There is decreased inspiratory lung volumes. There is progressive bilateral predominantly perihilar mixed interstitial and airspace opacity asymmetric greater right. Findings raise the question of sequelae of hypervolemia or failure. Given the asymmetry in the parenchymal disease pneumonia could not be entirely excluded in the appropriate scenario. IMPRESSION: Interval changes suggest likely asymmetric edema owing to failure or hypervolemia. Pneumonia could not be radiographically excluded. Dictated by: Dictated on workstation # [id number]
[2016-05-06] MEDS ORDERED: MAGNESIUM 1 GM/100 ML IVPB 100 ML IV NR (08:45)
[2016-05-06] MEDS ORDERED: KCL 10 MEQ TAB (MICRO K) PO NR (08:45)
--- NOTE | 2016-05-06 08:52 | Progress Note (SOAP) ---
Subjective Subjective/Events-last exam patient states she feels much better today. Patient states she's not shaking. Blood pressure is better. Temperature is normal. Platelet decreased to 122. White blood cell count shows many neutrophils. Potassium 3.5. Wheezing 1.7. He shouldn't still having diarrhea like water. Objective Exam Vital Signs Date Time Temp Pulse Resp B/P Pulse Ox O2 Delivery O2 Flow Rate FiO2 05/06/16 08:11 97.5 68 16 154/70 93 Nasal Cannula 2.00 05/06/16 04:00 100.4 86 22 142/83 95 Nasal Cannula 2.00 05/06/16 03:00 101.2 05/06/16 02:00 103.2 05/06/16 00:35 102.9 88 22 186/82 92 Nasal Cannula 2.00 05/05/16 21:00 102.3 05/05/16 20:00 101.5 75 18 160/84 96 Room Air 05/05/16 16:00 98.7 82 18 154/88 95 Room Air 05/05/16 14:02 99.3 05/05/16 13:22 99.3 05/05/16 12:50 101.9 80 18 152/74 96 Room Air 05/05/16 11:29 101.1 05/05/16 09:55 100.5 05/05/16 09:14 100.5 I & O 05/06/16 07:00 Intake Total 880 ml Output Total 607 ml Balance 273 ml Capillary Refill : Less Than 3 Seconds General Appearance: No Apparent Distress WD/WN HEENT: Normal ENT Inspection Neck: Normal Inspection Non Tender Respiratory: Chest Non Tender Lungs Clear Normal Breath Sounds No Accessory Muscle Use No Respiratory Distress Cardiovascular: Regular Rate, Rhythm No Murmur Gastrointestinal: soft other (discomfort in right upper quadrant) Results Lab Laboratory Tests 05/06/16 01:30: Alanine Aminotransferase (ALT/SGPT) 250H, Albumin 3.7, Alkaline Phosphatase 72, Anion Gap 9, Aspartate Amino Transf (AST/SGOT) 271H, BUN/Creatinine Ratio 11, Basophils # (Auto) 0.0, Basophils (%) (Auto) 0, Blood Urea Nitrogen 11, Calcium Level 8.1L, Carbon Dioxide Level 20L, Chloride Level 104, Creatinine 0.99, Eosinophils # (Auto) 0.0, Eosinophils (%) (Auto) 0, Estimat Glomerular Filtration Rate 56, Glucose Level 146H, Hematocrit 42, Hemoglobin 13.9, Lactic Acid Level 1.4, Lymphocytes # (Auto) 0.2L, Lymphocytes (%) (Auto) 4L, Mean Corpuscular Hemoglobin 30, Mean Corpuscular Hemoglobin Concent 33, Mean Corpuscular Volume 92, Mean Platelet Volume 9.5, Monocytes # (Auto) 0.0, Monocytes (%) (Auto) 1, Neutrophils # (Auto) 3.3, Neutrophils (%) (Auto) 95H, Platelet Count 133, Potassium Level 3.7, Red Blood Count 4.57, Red Cell Distribution Width 13.4, Sodium Level 133L, Total Bilirubin 1.0, Total Protein 6.2L, White Blood Count 3.5L 05/06/16 06:05: Alanine Aminotransferase (ALT/SGPT) 507H, Albumin 3.1L, Alkaline Phosphatase 60 , Anion Gap 9, Aspartate Amino Transf (AST/SGOT) 669H, BUN/Creatinine Ratio 14, Basophils # (Auto) 0.0, Basophils (%) (Auto) 0, Blood Urea Nitrogen 12, Calcium Level 7.5L, Carbon Dioxide Level 19L, Chloride Level 104, Creatinine 0.87, Eosinophils # (Auto) 0.0, Eosinophils (%) (Auto) 0, Estimat Glomerular Filtration Rate > 60, Glucose Level 150H, Hematocrit 36, Hemoglobin 12.2, Lymphocytes # (Auto) 0.2L, Lymphocytes (%) (Auto) 4L, Mean Corpuscular Hemoglobin 31, Mean Corpuscular Hemoglobin Concent 34, Mean Corpuscular Volume 92, Mean Platelet Volume 9.3, Monocytes # (Auto) 0.1, Monocytes (%) (Auto) 1, Neutrophils # (Auto) 5.1, Neutrophils (%) (Auto) 96H, Platelet Count 122L, Potassium Level 3.5L, Red Blood Count 3.91L, Red Cell Distribution Width 13.1, Sodium Level 132L, Total Bilirubin 0.6, Total Protein 5.2L, White Blood Count 5.3, B-Type Natriuretic Peptide 238.0H, Magnesium Level 1.7L Microbiology 05/05/16 C. difficile GDH Antigen & Toxins - Final, Complete 05/05/16 Influenza Types A,B Antigen (SHARATH) - Final, Complete Assessment/Plan Assessment/Plan Assess & Plan/Chief Complaint nausea. Vomiting. Diarrhea. Headache. Hypertension. Elevated liver tests. Thrombocytopenia. Elevated neutrophils. Elevated liver tests. Diagnosis/Problems: Clinical Quality Measures DVT/VTE Risk/Contraindication: Risk Factor Score Per Nursin RFS Level Per Nursing on Admit: 4+=Very High SHERRY WHITE DO May 06, 2016 08:52
[2016-05-06] MEDS: ENOXAPARIN 40 MG/0.4 ML (LOVENOX) SYR SC SCH (08:56)
[2016-05-06] MEDS: D5 NS W/KCL 20 MEQ/L 1,000 ML IV SCH ×2 (08:57→22:04)
[2016-05-06] MEDS: LABETALOL 200 MG (NORMODYNE) TAB PO SCH ×2 (10:54→20:45)
[2016-05-06] MEDS: DULoxetine 30 MG (CYMBALTA) CAP PO SCH (10:54)
[2016-05-06] MEDS: OLMESARTAN 20 MG (BENICAR) TABLET PO SCH (10:55)
--- NOTE | 2016-05-06 13:43 | Diagnostic Imaging Report ---
INDICATION: Elevated liver enzymes. TECHNIQUE: Grayscale sonographic images the of right upper quadrant of the abdomen. FINDINGS: The liver measures approximately 19 cm, borderline enlarged. There is overall relatively uniform echotexture without definitive focal lesion. The gallbladder appears to be absent. The common bile duct, upper limits of normal, post cholecystectomy at 1 cm. Pancreas is largely obscured. Very limited imaging of the right kidney, unremarkable. IMPRESSION: 1. Postcholecystectomy changes. 2. Borderline hepatomegaly. Dictated by: Dictated on workstation # [id number]
[2016-05-06] MEDS ORDERED: ASPIRIN 325 MG (5 GR) TABLET PO PRN (14:00)
[2016-05-07] VITALS: BP 152/80
[2016-05-07 04:00] VITALS: BP 183/77
[2016-05-07] MEDS: D5 NS W/KCL 20 MEQ/L 1,000 ML IV SCH ×3 (05:00→23:58)
[2016-05-07] MEDS: LEVOTHYROXINE 75 MCG (LEVOTHROID) TABLET PO SCH (05:43)
[2016-05-07] MEDS: metroNIDAZOLE 500MG/100ML IVPB 100 ML IV SCH ×3 (05:44→22:02)
[2016-05-07] MEDS: HYOSCYAMINE 0.125 MG (LEVSIN) TAB SL PRN (05:44)
[2016-05-07 06:49] LABS: BASOPHILS % (AUTO) 0 % (0-10); EOSINOPHILS # (AUTO) 0.2 10^3/uL (0.0-0.3); EOSINOPHILS % (AUTO) 6 % (0-10); LYMPHOCYTES # (AUTO) 0.8 X 10^3 (1.0-4.0); LYMPHOCYTES % (AUTO) 28 % (12-44); MEAN CORPUSCULAR HEMOGLOBIN 30 PG (25-34); MEAN CORPUSCULAR HGB CONC 33 G/DL (32-36); MEAN CORPUSCULAR VOLUME 91 FL (80-99); MEAN PLATELET VOLUME 9.9 FL (7.4-10.4); MONOCYTES # (AUTO) 0.2 X 10^3 (0.0-1.0); MONOCYTES % (AUTO) 6 % (0-12); NEUTROPHILS # (AUTO) 1.6 X 10^3 (1.8-7.8); NEUTROPHILS % (AUTO) 60 % (42-75); PLATELET COUNT 140 10^3/uL (130-400); RED BLOOD COUNT 4.09 10^6/uL (4.35-5.85); RED CELL DISTRIBUTION WIDTH 13.2 % (10.0-14.5); WHITE BLOOD COUNT 2.7 10^3/uL (4.3-11.0)
[2016-05-07 07:09] LABS: ALANINE AMINOTRANSFERASE 627 U/L (0-55); ALBUMIN 3.1 G/DL (3.2-4.5); ANION GAP 7 MMOL/L (5-14); ASPARTATE AMINO TRANSFERASE 489 U/L (5-34); BILIRUBIN,TOTAL 0.3 MG/DL (0.1-1.0); BLOOD UREA NITROGEN 9 MG/DL (7-18); BUN/CREATININE RATIO 10; CALCIUM 7.8 MG/DL (8.5-10.1); CARBON DIOXIDE 20 MMOL/L (21-32); CHLORIDE 113 MMOL/L (98-107); CREATININE SERUM 0.92 MG/DL (0.60-1.30); GFR ESTIMATED > 60; GLUCOSE 103 MG/DL (70-105); MAGNESIUM 1.7 MG/DL (1.8-2.4); POTASSIUM 3.7 MMOL/L (3.6-5.0); SODIUM 140 MMOL/L (135-145); TOTAL PROTEIN 5.1 G/DL (6.4-8.2)
[2016-05-07 08:24] VITALS: BP 169/92
[2016-05-07] MEDS: ENOXAPARIN 40 MG/0.4 ML (LOVENOX) SYR SC SCH (08:46)
[2016-05-07] MEDS: DULoxetine 30 MG (CYMBALTA) CAP PO SCH (08:46)
[2016-05-07] MEDS: OLMESARTAN 20 MG (BENICAR) TABLET PO SCH (08:47)
[2016-05-07] MEDS: LABETALOL 200 MG (NORMODYNE) TAB PO SCH ×2 (08:47→20:47)
[2016-05-07] MEDS: LEVOFLOXACIN 750 MG/150 ML IV 150 ML IV SCH (08:47)
[2016-05-07] MEDS: KETOROLAC 30 MG/ML VIAL IV PRN ×2 (08:47→22:01)
--- NOTE | 2016-05-07 09:31 | Progress Note (SOAP) ---
Subjective Subjective/Events-last exam PT REPORTS THAT SHE IS FEELING BETTER, BUT HER STOMACH IS STILL RUMBLING AND UNCOMFORTABLE. SHE REPORTS THAT SHE IS FATIGUED, BUT DOES NOT HAVE CHEST PAIN. Review of Systems General: Fatigue Pulmonary: No Dyspnea, No Cough Cardiovascular: No: Chest Pain, Palpitations Gastrointestinal: : Abdominal Pain: Nausea Genitourinary: No Dysuria Musculoskeletal: No: back pain Neurological: No: Confusion, Weakness Objective Exam Vital Signs Date Time Temp Pulse Resp B/P Pulse Ox O2 Delivery O2 Flow Rate FiO2 05/07/16 08:24 98.2 61 22 169/92 97 Room Air 05/07/16 04:00 97.8 65 18 183/77 97 Room Air 05/07/16 00:00 99.3 64 18 152/80 98 Room Air 05/06/16 20:00 97.4 60 20 177/85 97 Room Air 05/06/16 18:20 97.3 05/06/16 17:37 97.3 05/06/16 16:00 97.3 82 22 161/74 95 Room Air 05/06/16 13:30 97.5 05/06/16 12:57 97.5 05/06/16 12:00 98.8 86 22 178/81 94 Room Air I & O 05/07/16 07:00 Intake Total 3900 ml Output Total 2200 ml Balance 1700 ml Capillary Refill : Less Than 3 Seconds General Appearance: No Apparent Distress WD/WN HEENT: PERRL/EOMI Pharynx Normal Neck: Full Range of Motion Supple Respiratory: Chest Non Tender Lungs Clear Normal Breath Sounds Cardiovascular: Regular Rate, Rhythm Gastrointestinal: normal bowel sounds tenderness (OVER EPIGASTRIUM) Neurologic/Psychiatric: Alert Oriented x3 No Motor/Sensory Deficits Normal Mood/Affect Skin: Warm/Dry Lymphatic: No Adenopathy Results Lab Laboratory Tests 05/07/16 06:03: Alanine Aminotransferase (ALT/SGPT) 627H, Albumin 3.1L, Alkaline Phosphatase 58 , Anion Gap 7, Aspartate Amino Transf (AST/SGOT) 489H, BUN/Creatinine Ratio 10, Basophils # (Auto) 0.0, Basophils (%) (Auto) 0, Blood Urea Nitrogen 9, Calcium Level 7.8L, Carbon Dioxide Level 20L, Chloride Level 113H, Creatinine 0.92, Eosinophils # (Auto) 0.2, Eosinophils (%) (Auto) 6, Estimat Glomerular Filtration Rate > 60, Glucose Level 103, Hematocrit 37, Hemoglobin 12.3, Lymphocytes # (Auto) 0.8L, Lymphocytes (%) (Auto) 28, Magnesium Level 1.7L, Mean Corpuscular Hemoglobin 30, Mean Corpuscular Hemoglobin Concent 33, Mean Corpuscular Volume 91, Mean Platelet Volume 9.9, Monocytes # (Auto) 0.2, Monocytes (%) (Auto) 6, Neutrophils # (Auto) 1.6L, Neutrophils (%) (Auto) 60, Platelet Count 140, Potassium Level 3.7, Red Blood Count 4.09L, Red Cell Distribution Width 13.2, Sodium Level 140, Total Bilirubin 0.3, Total Protein 5.1L, White Blood Count 2.7L Microbiology 05/05/16 Blood Culture - Preliminary, Resulted No growth 05/05/16 C. difficile GDH Antigen & Toxins - Final, Complete 05/05/16 Influenza Types A,B Antigen (SHARATH) - Final, Complete Assessment/Plan Assessment/Plan Assess & Plan/Chief Complaint ELEVATED LIVER ENZYMES ABDOMINAL PAIN HYPERTENSION DIARRHEA LEUKOCYTOPENIA ELEVATED LIVER ENZYMES - WITH ABDOMINAL PAIN - CHECK CT SCAN OF ABDOMEN - CONTINUE WITH IV FLUIDS, SUPPORTIVE CARE. FURTHER TREATMENT DEPENDED ON CT SCAN - WHICH WAS BENIGN. HYPERTENSION - IMPROVED - CONTINUE WITH CURRENT TREATMENT. DIARRHEA - LIKELY VIRAL - MONITOR SYMPTOMS. 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 Diagnosis/Problems: Clinical Quality Measures DVT/VTE Risk/Contraindication: Risk Factor Score Per Nursin RFS Level Per Nursing on Admit: 4+=Very High MARIO PAUL MD May 07, 2016 09:30
[2016-05-07] MEDS ORDERED: NS 100 ML (IVPB) BAG IV ONE (10:30)
[2016-05-07] MEDS ORDERED: IOHEXOL 350 MG/ML 100 ML (OMNIPAQUE 350) VIAL IV ONE (10:30)
--- NOTE | 2016-05-07 11:00 | Diagnostic Imaging Report ---
PROCEDURE: CT abdomen and pelvis with and without contrast. TECHNIQUE: Precontrast acquisitions were acquired through the abdomen and pelvis. Multiple contiguous axial images were obtained through the abdomen and pelvis after the administration of intravenous contrast. INDICATION: Elevated liver enzymes. Upper abdominal pain, diarrhea, nausea, and vomiting. CONTRAST: 100 mL of Omnipaque 350 was administered intravenously. FINDINGS: The lung bases demonstrate minimal atelectasis. There is a diffuse mild degree of hepatic steatosis. The portal vein is patent. There is mild dilatation of the CBD which is at the upper limits of normal for the patient's age and considering prior cholecystectomy. The caliber is 1.1 cm. The pancreatic duct is not significantly dilated. Cholecystectomy clips are seen. The spleen is not enlarged. The adrenals and pancreatic parenchyma appear unremarkable. The kidneys have symmetric enhancement and contrast excretion. There is no hydronephrosis. The unenhanced phase demonstrates no urinary tract stones. There is no fluid collection or abscess in the abdomen or pelvis. There is a nonspecific minimal amount of free pelvic fluid seen. There is prominent fluid content within the right colon and distal small bowel loops which may relate to enteritis. No bowel obstruction. No significant bowel wall thickening is identified. There is a tiny fat-containing umbilical hernia. The osseous structures demonstrate degenerative changes at L5-S1 and the sacroiliac joints. The abdominal aorta is normal in caliber. No periaortic significantly enlarged lymph nodes are seen. IMPRESSION: 1. Increased fluid content in some small bowel loops and in the right side of the colon, presumably secondary to inflammatory or infectious enteritis. 2. Hepatic steatosis. 3. Tiny fat-containing umbilical hernia. Dictated by: Dictated on workstation # [id number]
[2016-05-07] MEDS: fentaNYL INJECTION 100 MCG/2 ML AMP IV PRN ×2 (11:58)
[2016-05-07] MEDS: methylPREDNISolone 125 MG (Solu-MEDROL) VIAL IVP SCH ×2 (11:58→18:17)
[2016-05-07 12:00] VITALS: BP 173/95
[2016-05-07 16:35] VITALS: BP 179/93
[2016-05-07 20:20] VITALS: BP 182/94
[2016-05-08] VITALS: BP 186/80
[2016-05-08] MEDS: methylPREDNISolone 125 MG (Solu-MEDROL) VIAL IVP SCH ×5 (00:01→23:22)
[2016-05-08 04:00] VITALS: BP 175/80
[2016-05-08] MEDS: metroNIDAZOLE 500MG/100ML IVPB 100 ML IV SCH ×3 (05:52→21:28)
[2016-05-08] MEDS: LEVOTHYROXINE 75 MCG (LEVOTHROID) TABLET PO SCH (05:53)
[2016-05-08 08:00] VITALS: BP 140/90
[2016-05-08] MEDS: OLMESARTAN 20 MG (BENICAR) TABLET PO SCH (08:25)
[2016-05-08] MEDS: DULoxetine 30 MG (CYMBALTA) CAP PO SCH (08:25)
[2016-05-08] MEDS: LABETALOL 200 MG (NORMODYNE) TAB PO SCH ×2 (08:26→20:34)
[2016-05-08] MEDS: LEVOFLOXACIN 750 MG/150 ML IV 150 ML IV SCH (08:26)
[2016-05-08] MEDS: ENOXAPARIN 40 MG/0.4 ML (LOVENOX) SYR SC SCH (08:27)
[2016-05-08 09:25] LABS: ALANINE AMINOTRANSFERASE 440 U/L (0-55); ALBUMIN 3.6 G/DL (3.2-4.5); ANION GAP 12 MMOL/L (5-14); ASPARTATE AMINO TRANSFERASE 158 U/L (5-34); BILIRUBIN,TOTAL 0.3 MG/DL (0.1-1.0); BLOOD UREA NITROGEN 9 MG/DL (7-18); BUN/CREATININE RATIO 10; CALCIUM 8.2 MG/DL (8.5-10.1); CARBON DIOXIDE 20 MMOL/L (21-32); CHLORIDE 108 MMOL/L (98-107); CREATININE SERUM 0.91 MG/DL (0.60-1.30); GFR ESTIMATED > 60; GLUCOSE 245 MG/DL (70-105); POTASSIUM 3.2 MMOL/L (3.6-5.0); SODIUM 140 MMOL/L (135-145)
--- NOTE | 2016-05-08 09:28 | Progress Note (SOAP) ---
Subjective Subjective/Events-last exam pt reports that she is feeling better today - she reports that she is having less abdominal discomfort today - however is a little bloated. Review of Systems General: Fatigue Malaise HEENT: No Head Aches Pulmonary: No Dyspnea, No Cough Cardiovascular: No: Chest Pain Gastrointestinal: : Abdominal PainNo: Nausea Genitourinary: No Dysuria Musculoskeletal: No: back pain Neurological: No: Confusion, Weakness Objective Exam Vital Signs Date Time Temp Pulse Resp B/P Pulse Ox O2 Delivery O2 Flow Rate FiO2 05/08/16 08:00 98.9 69 18 140/90 97 Room Air 05/08/16 04:00 98.4 61 18 175/80 95 Room Air 05/08/16 00:00 97.0 66 18 186/80 98 Room Air 05/07/16 20:30 98 Room Air 2.00 05/07/16 20:20 99.0 66 16 182/94 94 Room Air 05/07/16 16:35 98.2 60 20 179/93 98 Room Air 05/07/16 12:00 98.1 61 18 173/95 97 Room Air I & O 05/08/16 07:00 Intake Total 2940 ml Output Total 2950 ml Balance -10 ml Capillary Refill : Less Than 3 Seconds General Appearance: No Apparent Distress WD/WN HEENT: PERRL/EOMI Pharynx Normal Neck: Full Range of Motion Normal Inspection Non Tender Supple Respiratory: Chest Non Tender Lungs Clear Normal Breath Sounds Cardiovascular: Regular Rate, Rhythm No Edema Gastrointestinal: normal bowel sounds soft tenderness Extremity: Normal Capillary Refill No Pedal Edema Neurologic/Psychiatric: Alert Oriented x3 No Motor/Sensory Deficits Normal Mood/Affect Skin: Warm/Dry Lymphatic: No Adenopathy Results Lab Laboratory Tests 05/08/16 08:55: Alanine Aminotransferase (ALT/SGPT) 440H, Albumin 3.6, Alkaline Phosphatase 71, Anion Gap 12, Aspartate Amino Transf (AST/SGOT) 158H, BUN/Creatinine Ratio 10, Blood Urea Nitrogen 9, Calcium Level 8.2L, Carbon Dioxide Level 20L, Chloride Level 108H, Creatinine 0.91, Estimat Glomerular Filtration Rate > 60, Glucose Level 245H, Potassium Level 3.2L, Sodium Level 140, Total Bilirubin 0.3, Total Protein 6.0L Microbiology 05/06/16 Blood Culture - Preliminary, Resulted No growth 05/05/16 C. difficile GDH Antigen & Toxins - Final, Complete 05/05/16 Influenza Types A,B Antigen (SHARATH) - Final, Complete Assessment/Plan Assessment/Plan Assess & Plan/Chief Complaint ELEVATED LIVER ENZYMES ABDOMINAL PAIN HYPERTENSION DIARRHEA LEUKOCYTOPENIA ELEVATED LIVER ENZYMES - WITH ABDOMINAL PAIN -CT OF ABDOMEN - NEGATIVE - ELEVATED LIVER ENZYMES IMPROVED - CONTINUE WITH IV FLUIDS, SUPPORTIVE CARE. HYPERTENSION - IMPROVED - CONTINUE WITH CURRENT TREATMENT. DIARRHEA - LIKELY VIRAL - MONITOR SYMPTOMS. 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 Diagnosis/Problems: Clinical Quality Measures DVT/VTE Risk/Contraindication: Risk Factor Score Per Nursin RFS Level Per Nursing on Admit: 4+=Very High MARIO PAUL MD May 08, 2016 09:28
[2016-05-08] MEDS ORDERED: SIMETHICONE 80 MG (MYLICON) CHEW PO NR (09:30)
[2016-05-08] MEDS: D5 NS W/KCL 20 MEQ/L 1,000 ML IV SCH (11:56)
[2016-05-08 12:00] VITALS: BP 154/88
[2016-05-08] MEDS: SIMETHICONE 80 MG (MYLICON) CHEW PO SCH ×3 (14:15→20:31)
[2016-05-08 16:00] VITALS: BP 128/84
[2016-05-08] MEDS: CATHETER FLUSH 10 ML SYR IV PRN ×2 (21:28→23:22)
[2016-05-09] VITALS: BP 165/80
[2016-05-09 05:07] LABS: MEAN PLATELET VOLUME 10.3 FL (7.4-10.4); RED BLOOD COUNT 4.38 10^6/uL (4.35-5.85); RED CELL DISTRIBUTION WIDTH 12.9 % (10.0-14.5); WHITE BLOOD COUNT 7.7 10^3/uL (4.3-11.0)
[2016-05-09 05:26] LABS: ALANINE AMINOTRANSFERASE 341 U/L (0-55); ALBUMIN 3.6 G/DL (3.2-4.5); ANION GAP 16 MMOL/L (5-14); ASPARTATE AMINO TRANSFERASE 104 U/L (5-34); BILIRUBIN,TOTAL 0.3 MG/DL (0.1-1.0); BLOOD UREA NITROGEN 14 MG/DL (7-18); BUN/CREATININE RATIO 15; CALCIUM 8.3 MG/DL (8.5-10.1); CARBON DIOXIDE 19 MMOL/L (21-32); CHLORIDE 107 MMOL/L (98-107); CREATININE SERUM 0.91 MG/DL (0.60-1.30); GFR ESTIMATED > 60; GLUCOSE 195 MG/DL (70-105); POTASSIUM 3.3 MMOL/L (3.6-5.0); SODIUM 142 MMOL/L (135-145)
[2016-05-09] MEDS: methylPREDNISolone 125 MG (Solu-MEDROL) VIAL IVP SCH (05:35)
[2016-05-09] MEDS: LEVOTHYROXINE 75 MCG (LEVOTHROID) TABLET PO SCH (05:35)
[2016-05-09] MEDS: metroNIDAZOLE 500MG/100ML IVPB 100 ML IV SCH (05:35)
[2016-05-09 08:00] VITALS: BP 140/90
[2016-05-09] MEDS: LEVOFLOXACIN 750 MG/150 ML IV 150 ML IV SCH (08:22)
[2016-05-09] MEDS: SIMETHICONE 80 MG (MYLICON) CHEW PO SCH (08:23)
[2016-05-09] MEDS: DULoxetine 30 MG (CYMBALTA) CAP PO SCH (08:23)
[2016-05-09] MEDS: OLMESARTAN 20 MG (BENICAR) TABLET PO SCH (08:23)
[2016-05-09] MEDS: LABETALOL 200 MG (NORMODYNE) TAB PO SCH (08:24)
[2016-05-09] MEDS: ENOXAPARIN 40 MG/0.4 ML (LOVENOX) SYR SC SCH (08:30)
[2016-05-09] MEDS ORDERED: METF500T4 PO (08:44)
[2016-05-09] MEDS ORDERED: METR500T PO (08:44)
--- NOTE | 2016-05-09 08:47 | Discharge Inst-Complex ---
PDI Med Rec & Follow Up Appt. New Medications: Metronidazole (Flagyl) 500 Mg Tablet 500 MG PO BID #14 TAB Changed Medications: Metformin HCl (Metformin HCl) 500 Mg Tablet 500 MG PO BID HOLD X 1 WEEK #60 TAB (Medication details modified) Continued Medications: Aspirin (Aspirin EC) 81 Mg Tablet.dr 81 MG PO Q48H Calcium Carbonate/Vitamin D3 (Calcium 600 + D Tablet) 1 Each Tablet 1 TAB PO BID Cyclobenzaprine HCl (Cyclobenzaprine HCl) 10 Mg Tablet 10 MG PO DAILY PRN MUSCLE SPASMS Duloxetine HCl (Cymbalta) 30 Mg Capsule.dr 30 MG PO DAILY CAP Labetalol HCl (Labetalol HCl) 100 Mg Tablet 100 MG PO BID TAB Levothyroxine Sodium (Synthroid) 75 Mcg Tablet 75 MCG PO DAILY TAB Lovastatin (Lovastatin) 10 Mg Tablet 10 MG PO HS TAB Meloxicam (Mobic) 15 Mg Tablet 15 MG PO DAILY TAB Multivitamin with Minerals (Multiple Vitamin) 1 Each Tablet 1 TAB PO DAILY TAB Olmesartan Medoxomil (Benicar) 40 Mg Tablet 40 MG PO DAILY TAB [place] 3 Polyunsat Fatty Acids (Fish Oil 1,000 mg Capsule) 1,000 Mg Cap 2000 MG PO BID TAKES 2 (1000MG) CAPSULES Quinapril HCl (Accupril) 40 Mg Tablet 40 MG PO EVENING Tramadol HCl (Tramadol HCl) 50 Mg Tablet 50 MG PO TID PRN PAIN Prescription: Transmitted to Pharmacy Activity, Diet and PDI Resume Normal Activity: Yes Discharge Diet: Other Diet (BLAND DIET X 3 MORE DAYS, THEN SLOWLY ADVANCE DIET) Drink 6-8 Glasses of Fluid/Day: Yes Driving Instructions: No Driving for 24 Hours May Return to Work/School/Day: May Return to Work (IN 5 DAYS) Symptoms to Reoprt to : Fever Over 101 Degrees F, Pain/Pressure in Shoulder , Diarrhea(Persistant), Nausea/Vomiting For Problems or Questions: Contact Your Physician, Go to Emergency Room MARIO PAUL MD May 09, 2016 08:47
--- NOTE | 2016-05-09 08:47 | Discharge Summary ---
Diagnosis/Chief Complaint Date of Admission May 06, 2016 at 11:42 Date of Discharge Discharge Date: May 09, 2016 Discharge Time: 09 Admission Diagnosis Admission Diagnosis nausea and vomiting. Diarrhea. Headache. Malignant hypertension. Discharge Diagnosis ELEVATED LIVER ENZYMES NAUSEA VOMITING ABDOMINAL PAIN MALIGNANT HYPERTENSION DIARRHEA LEUKOCYTOPENIA Reason Hospital Visit PT WAS ADMITTED TO THE HOSPITAL AFTER ACUTE ONSET OF ABDOMINAL PAIN AND PERSISTENT NAUSEA AND EMESIS WITH INABILITY TO CARE FOR HERSELF AT HOME. Discharge Summary Discharge Physical Examination Allergies: Coded Allergies: Sulfa (Sulfonamide Antibiotics) (Verified Allergy, Unknown, 03/05/08) codeine (Verified Allergy, Unknown, 03/05/08) meperidine (Verified Allergy, Unknown, 03/05/08) morphine (Verified Allergy, Unknown, 03/05/08) penicillin G (Verified Allergy, Unknown, 03/05/08) Vitals & I&Os General Appearance: Alert, Oriented X3, Cooperative, No Acute Distress HEENT: Atraumatic, PERRLA, Mucous Memb Moist/[place] Respiratory: Clear to Auscultation, Normal Air Movement Cardiovascular: Regular Rate, Normal S1, Normal S2 Abdominal: Normal Bowel Sounds, Soft, No Tenderness Extremities: No Clubbing, No Edema Skin: No Rashes, No Significant Lesion Neuro: Normal Gait, Strength at 5/5 X4 Ext, Cranial Nerves 3-12 NL Psych/Mental Status: Mental Status NL, Mood NL Hospital Course ELEVATED LIVER ENZYMES ABDOMINAL PAIN HYPERTENSION DIARRHEA LEUKOCYTOPENIA ELEVATED LIVER ENZYMES - WITH ABDOMINAL PAIN - CT OF ABDOMEN NEGATIVE - PT HAD ELEVATED LIVER ENZYMES AND WAS CONTINUED ON IV FLUIDS, SUPPORTIVE CARE. REPEAT LABS WERE IMPROVED HYPERTENSION - IMPROVED - CONTINUED WITH HOME MEDS AND ADJUSTMENTS MADE TO MEDS. DIARRHEA - LIKELY VIRAL - MONITOR SYMPTOMS. 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 THE PT WAS DISCHARGED TO HOME, PLAN FOR FOLLOW UP LABS OUTPATIENT AND RETURN TO CLINIC IN 2 WEEKS FROM [place]. Pending Labs Discharge Condition at discharge IMPROVED Instructions to patient/family Please see electonic discharge instructions given to patient. Discharge Medications Reviewed and agree with Discharge Medication list on patient's Discharge Instruction sheet Clinical Quality Measures DVT/VTE Risk/Contraindication: Risk Factor Score Per Nursin RFS Level Per Nursing on Admit: 4+=Very High MARIO PAUL MD May 09, 2016 08:47
[2016-05-09 10:35] VITALS: BP 140/90
--- NOTE | 2016-05-10 09:00 | Physician Query-General Query ---
Physician Query-General Query to Physician: What is the underlying cause of the patient's symptoms of nausea and vomiting, diarrhea, headache, fever? PHYSICIAN RESPONSE: Based on the clinical findings in the record, please respond to the query above on this document as an addendum. Possible, probable, or questionable diagnosis can be coded for INPATIENTS ONLY. Physician Response: Physician Response GASTROENTERITIS ELEVATED LIVER ENZYMES DEHYDRATION CAUSED HEADACHE If you have questions please contact: Doll Dresser: [place] Ext: [phone] Thank you for your time and cooperation. Clinical Finance Specialist/Doll Dresser This is a permanent part of the medical record ARNULFO WAGNER May 10, 2016 09:00 MARIO PAUL MD May 13, 2016 12:47
== END 2016-05-09 10:45 | disposition home or self-care (01) | DRG 392 ==
LOC: EDUNIT# 18:00 → ER 18:01 → 4TH 21:24 → UNDOADMOB 21:24 → 4TH 21:50 → OBSVTOIN 05-06 11:42 → INTOOBSV 05-06 11:42
PROVIDERS: ADMIT Family Medicine; ATTEND Family Medicine
DX: K52.9 Noninfective gastroenteritis and colitis, unspecified (principal); E86.0 Dehydration; R50.9 Fever, unspecified; R74.8 Abnormal levels of other serum enzymes; I16.0 Hypertensive urgency; R00.1 Bradycardia, unspecified; E83.42 Hypomagnesemia; D69.6 Thrombocytopenia, unspecified; E11.9 Type 2 diabetes mellitus without complications; R25.2 Cramp and spasm; D72.819 Decreased white blood cell count, unspecified; R34 Anuria and oliguria; M06.9 Rheumatoid arthritis, unspecified; E03.9 Hypothyroidism, unspecified; F32.9 Major depressive disorder, single episode, unspecified; M85.80 Other specified disorders of bone density and structure, unspecified site; R01.1 Cardiac murmur, unspecified
CPT/HCPCS: 36415; 71010; 74178; 76705; 80053; 81000; 82550; 83605; 83735; 83880; 84439; 84443; 85025; 85027; 87040; 87324; 87449; 87804; 96361; 96374; G0378

== ENCOUNTER → 2016-05-21 | Outpatient (CLI) | payer MEDICARE, OTHER ==
[~2016-05-21] MED LIST changes: +METR500T PO
--- OUTSIDE RECORDS SUMMARY | 2016-05-21 09:32 | XMS REPORT | Continuity of Care Document ---
Author Author [facility] Organization [facility] Address Unknown Phone Unavailable Care Team Providers Care Bone Drier Operator Name Role Phone MARIO PAUL MD PCP Insurance Providers Payer Name Policy Number Subscriber Name Relationship [employer] [id number] Vito Olguin 18 Self / Same As Patient [facility] [id number] Vito Olguin 18 Self / Same As Patient Advance Directives Directive Response Recorded Date/Time Advance Directives Yes 05/04/16 9:50pm Health Care Power of Software Support Representative Yes 05/04/16 9:50pm Organ Donor Yes 05/04/16 9:50pm Resuscitation Status Full Code 05/04/16 9:50pm Chief Complaint and Reason for Visit Chief Complaint NAUSEA,VOMITING,DIARHEA,HEADACHE,FEVER Reason for Visit Generalized abdominal pain Hypertensive urgency Nausea vomiting and diarrhea Viral gastroenteritis Volume depletion Problems Active Problems Medical Problem Onset Date Status Abdominal cramping Unknown Acute Acute headache Unknown Acute Dehydration Unknown Acute Diuretics causing adverse effect in therapeutic use Unknown Acute Generalized abdominal pain Unknown Acute Hypertensive urgency Unknown Acute Nausea vomiting and diarrhea Unknown Acute Viral gastroenteritis Unknown Acute Volume [...] A Day as needed for Pain 01/30/15 [place] 3 Polyunsat Fatty Acids 1,000 Mg 2,000 Mg Oral Twice A Day TAKES 2 (1000MG) CAPSULES 01/30/15 Calcium Carbonate/Vitamin D3 1 Each 1 Tab Oral Twice A Day 01/30/15 Multivitamin With Minerals 1 Each 1 Tab Oral Daily 01/30/15 Aspirin 81 Mg 81 Mg Oral Every 48 Hours 01/31/15 Cyclobenzaprine Hcl 10 Mg 10 Mg Oral Daily as needed for Muscle Spasms 01/31/15 Metformin Hcl 500 Mg 500 Mg Oral Twice A Day 60 HOLD X 1 WEEK 05/09/16 Metronidazole 500 Mg 500 Mg Oral Twice A Day 14 05/09/16 Past Home Medications Medication Directions Ordered Status [...] 01/30/15 Discontinued Vitamin A 25,000 Unit Capsule, 47796 Unit Oral Daily 01/30/15 Discontinued Ibuprofen 200 [...] Mg Oral Twice A Day 02/01/15 Discontinued Metformin Hcl 500 Mg Tablet, 500 Mg Oral Twice A Day 05/04/16 Discontinued Social History Social History Problem Response Recorded Date/Time Alcohol Use Denies Use 01/30/2015 1:14am Recreational Drug Use No 01/30/2015 1:14am Recent Foreign Travel No 05/04/2016 9:50pm Recent Infectious Disease Exposure No 05/04/2016 9:50pm Hospitalization with Isolation Denies 05/09/2016 10:49am Smoking Status Never a Smoker 05/04/2016 9:50pm Recent Hopitalizations No 05/04/2016 9:50pm Hospitalization with Isolation Denies 05/09/2016 10:49am Query Response Start Date Stop Date Smoking Status Never a Smoker Hospital Discharge Instructions Patient Instructions Physician Instructions Prescription: Transmitted to Pharmacy Resume Normal Activity: Yes Discharge Diet: Other Diet (BLAND DIET X 3 MORE DAYS, THEN SLOWLY ADVANCE DIET) Drink 6-8 Glasses of Fluid/Day: Yes Driving Instructions: No Driving for 24 Hours May Return to Work/School/Day: May Return to Work (IN 5 DAYS) Symptoms to Reoprt to DrKenisha: Fever Over 101 Degrees F, Pain/Pressure in Shoulder, Diarrhea(Persistant), Nausea/Vomiting For Problems or Questions: Contact Your Physician, Go to Emergency Room Plan of Care Discharge Date 05/09/16 10:45am Disposition 01 HOME, SELF-CARE Instructions/Education Provided Dehydration Forms Provided PDI Medical Return to Work Form Prescriptions See Medication Section Referrals [facility] (Unspecified) - 2 Weeks Reason(s) for Referral: Abdominal cramping Generalized abdominal pain Nausea vomiting and diarrhea JACQUELIN LANZA (Unspecified) - 05/22/16 Address: [place] [address] Reason(s) for Referral: 11:00AM Care Plan and Goals See Discharge Instructions Section Functional Status Query Response Date Recorded Patient Orientation Person Place Time Situation May 09, 2016 10:49am Comprehension Ability Understands Concepts May 07, 2016 8:30pm Allergies, Adverse Reactions, Alerts Allergen Type Severity Reaction Status Last Updated Sulfa (Sulfonamide Antibiotics) ([id number]) Allergy Unknown Active 03/12 Morphine Allergy Unknown Active 03/05/08 Codeine Allergy Unknown Active 03/05/08 Meperidine Allergy Unknown Active 03/05/08 Penicillin g Allergy Unknown Active 03/05/08 Immunizations No immunization records. Vital Signs Acute Vital Signs Vital Response Date/Time Temperature (Fahrenheit) 97.5 degrees F (97.6 - 99.5) 05/09/2016 10:35am Temperature (Calculated Celsius) 36.98578 degrees C (36.4 - 37.5) 05/09/2016 8:00am Temperature Source Tympanic 05/09/2016 10:35am Pulse Rate (adult) 67 bpm (60 - 90) 05/09/2016 10:35am Respiratory Rate 16 bpm (12 - 24) 05/09/2016 10:35am O2 Sat by Pulse Oximetry 96 % (88 - 100) 05/09/2016 10:35am Blood Pressure 140/90 mm Hg 05/09/2016 10:35am Blood Pressure Mean 107 mm Hg 05/09/2016 8:00am Pain Numeric Pain Scale 0-No Pain 05/09/2016 10:35am Height (Feet) 5 feet 05/05/2016 2:50am Height (Inches) 1.00 inches 05/05/2016 2:50am Height (Calculated Centimeters) 154.300008 cm 05/05/2016 2:50am Weight (Pounds) 190 pounds 05/05/2016 2:50am Weight (Ounces) 0.0 oz 05/05/2016 2:50am Weight (Calculated Grams) 27026.55 gm 05/05/2016 2:50am Weight (Calculated Kilograms) 86.100520 kilograms 05/05/2016 2:50am Calculated BMI 35.9 05/05/2016 2:50am Capillary Refill Capillary Refill Less Than 3 Seconds 05/06/2016 8:00am Results Laboratory Results Test Name Result Units [...] 4.3 G/DL 3.2-4.5 05/04/2016 2:39am 05/04/2016 3:11am Pending Laboratory Results Test Name Collection Date/Time Pending Microbiology Results Procedure Source Collection Date/Time Procedures No known history of procedures. Encounters Encounter Location Arrival/Admit Date Discharge/Depart Date Attending Provider Discharged Inpatient [facility] 05/06/16 11:42am 10:45am MARIO PAUL MD Departed Emergency Room [facility] 05/04/16 2:32am 05/04 3:41am ROLANDO MOSLEY DO Recent Diagnosis Generalized abdominal pain Hypertensive urgency Nausea vomiting and diarrhea Viral gastroenteritis Volume depletion
[2016-05-21 09:43] LABS: BASOPHILS % (AUTO) 0 % (0-10); EOSINOPHILS # (AUTO) 0.2 10^3/uL (0.0-0.3); EOSINOPHILS % (AUTO) 3 % (0-10); LYMPHOCYTES # (AUTO) 1.4 X 10^3 (1.0-4.0); LYMPHOCYTES % (AUTO) 24 % (12-44); MEAN CORPUSCULAR HEMOGLOBIN 30 PG (25-34); MEAN CORPUSCULAR HGB CONC 33 G/DL (32-36); MEAN CORPUSCULAR VOLUME 93 FL (80-99); MEAN PLATELET VOLUME 9.7 FL (7.4-10.4); MONOCYTES # (AUTO) 0.6 X 10^3 (0.0-1.0); MONOCYTES % (AUTO) 11 % (0-12); NEUTROPHILS # (AUTO) 3.6 X 10^3 (1.8-7.8); NEUTROPHILS % (AUTO) 62 % (42-75); PLATELET COUNT 217 10^3/uL (130-400); RED BLOOD COUNT 4.37 10^6/uL (4.35-5.85); RED CELL DISTRIBUTION WIDTH 14.6 % (10.0-14.5); WHITE BLOOD COUNT 5.8 10^3/uL (4.3-11.0)
[2016-05-21 10:15] LABS: ALBUMIN 3.5 G/DL (3.2-4.5); BILIRUBIN,TOTAL 0.5 MG/DL (0.1-1.0); CALCIUM 8.8 MG/DL (8.5-10.1); CREATININE SERUM 0.94 MG/DL (0.60-1.30); POTASSIUM 4.1 MMOL/L (3.6-5.0); TOTAL PROTEIN 5.6 G/DL (6.4-8.2)
== END ==
LOC: LAB 09:28
PROVIDERS: ATTEND Family Medicine
DX: I10 Essential (primary) hypertension (principal); R79.89 Other specified abnormal findings of blood chemistry
CPT/HCPCS: 36415; 80053; 85025

== ENCOUNTER 2016-07-25 11:40 | Outpatient (RCR) | payer MEDICARE, OTHER ==
[~2016-07-25 11:40] MED LIST changes: +OLME40TA12 PO; -OLME40TA16 PO
[2016-07-25 12:43] LABS: ALBUMIN 4.3 G/DL (3.2-4.5); BILIRUBIN,DIRECT 0.2 MG/DL (0.0-0.3); BILIRUBIN,INDIRECT 0.3 MG/DL; BILIRUBIN,TOTAL 0.5 MG/DL (0.1-1.0); TOTAL PROTEIN 6.7 G/DL (6.4-8.2)
== END 2016-10-23 | disposition home or self-care (01) ==
LOC: LAB 11:40
PROVIDERS: ATTEND Podiatrist Foot & Ankle Surgery
DX: B35.1 Tinea unguium (principal)
CPT/HCPCS: 36415; 80076

== ENCOUNTER → 2016-08-30 | Outpatient (CLI) | payer MEDICARE, OTHER ==
[~2016-08-30] MED LIST changes: -OLME40TA12 PO; +OLME40TA16 PO
[2016-08-30 13:08] LABS: ALBUMIN 4.3 G/DL (3.2-4.5); BILIRUBIN,DIRECT 0.2 MG/DL (0.0-0.3); BILIRUBIN,INDIRECT 0.2 MG/DL; BILIRUBIN,TOTAL 0.4 MG/DL (0.1-1.0)
== END ==
LOC: LAB 12:19
PROVIDERS: ATTEND Podiatrist Foot & Ankle Surgery
DX: B35.1 Tinea unguium (principal)
CPT/HCPCS: 36415; 80076

== ENCOUNTER → 2017-01-29 | Outpatient (CLI) | payer MEDICARE, OTHER ==
[~2017-01-29] MED LIST changes: +OLME40TA12 PO; -OLME40TA16 PO
--- NOTE | 2017-01-30 19:51 | Diagnostic Imaging Report ---
Bilateral screening mammogram 2D views with tomosynthesis The current study was also evaluated with a Computer Aided Detection (CAD) system. Indication: Screening. No current complaints stated on the questionnaire. COMPARISON: 01/26/15. FINDINGS: The breasts are composed of scattered fibroglandular densities. There are benign-appearing calcifications seen. There is a stable nodule in the outer aspect of the left breast stable from multiple prior exams and increased benign-appearing calcifications in the right breast with pattern compatible with oil cysts. No suspicious mass or calcifications seen. Allowing for technique and positional differences, no suspicious change is seen. IMPRESSION: No significant change. ACR BI-RADS Category 2: Benign findings. Result letter will be mailed to the patient. Note: At least 10% of breast cancer is not imaged by mammography. Dictated by: Dictated on workstation # [id number]
== END ==
LOC: RAD 11:43
PROVIDERS: ATTEND Family Medicine
DX: Z12.31 Encounter for screening mammogram for malignant neoplasm of breast (principal)
CPT/HCPCS: 77067

== ENCOUNTER 2017-04-27 04:23 | Emergency (ER) | payer MEDICARE, OTHER ==
[~2017-04-27] VITALS: Ht 157.5 cm; Wt 83.9 kg
[2017-04-27] MEDS ORDERED: NS IV 500 ML 500 ML IV ONE (06:05)
--- NOTE | 2017-04-27 06:13 | ED Cough/URI ---
General Chief Complaint: Cough/Cold/Flu Symptoms Stated Complaint: FLU SYMPTOMS,COUGHING,MUSCLE CRAMPS Nursing Triage Note: headache, nonproductive cough, nasal drainage x1 day Source: patient Exam Limitations: no limitations (MIRACLE BURRIS MD) History of Present Illness Date Seen by Provider: Apr 27, 2017 Time Seen by Provider: 05:58 Initial Comments Here with report of headache, cough, runny nose, sore throat and body aches have been going on over the last 24 hours. Also reports muscle cramping. She is concerned because last time she had muscle cramping like this she had significant electrolyte disorder requiring hospitalization. States been eating and drinking okay but the states that she is not really drinking that well. Denies dysuria or diarrhea. Reports fever yesterday but currently no fever. States that she took some Tylenol and feels like she broke her fever because her hair was wet and she apparently had broke out in a cold sweat for a bit. Timing/Duration: yesterday Severity/Quality: moderate, dry cough Prior Episodes/Possible Cause: occasional episodes Modifying Factors: Improves With Coughing Associated Symptoms: cough, fever/chills, muscle aches, nasal congestion, nasal drainage, sore throat (MIRACLE BURRIS MD) Allergies and Home Medications Allergies Coded Allergies: Sulfa (Sulfonamide Antibiotics) (Verified Allergy, Unknown, 03/05/08) codeine (Verified Allergy, Unknown, 03/05/08) meperidine (Verified Allergy, Unknown, 03/05/08) morphine (Verified Allergy, Unknown, 03/05/08) penicillin G (Verified Allergy, Unknown, 03/05/08) Home Medications Aspirin 81 Mg Tablet.dr, 81 MG PO Q48H, (Reported) Calcium Carbonate/Vitamin D3 1 Each Tablet, 1 TAB PO BID, (Reported) Labetalol HCl 100 Mg Tablet, 100 MG PO BID, (Reported) Levothyroxine Sodium 75 Mcg Tablet, 75 MCG PO DAILY, (Reported) Lovastatin 10 Mg Tablet, 10 MG PO HS, (Reported) Metformin HCl 500 Mg Tablet, 500 MG PO BID, #60 HOLD X 1 WEEK Prescribed by: MARIO PAUL on 05/09/16 0844 Multivitamin with Minerals 1 Each Tablet, 1 TAB PO DAILY, (Reported) Olmesartan Medoxomil 40 Mg Tablet, 40 MG PO DAILY, (Reported) [place] 3 Polyunsat Fatty Acids 1,000 Mg Cap, 2,000 MG PO BID, (Reported) TAKES 2 (1000MG) CAPSULES Constitutional: see HPI, No chills, fever EENTM: see HPI Respiratory: cough, No short of breath Gastrointestinal: no symptoms reported Genitourinary: no symptoms reported Musculoskeletal: see HPI, muscle pain, muscle cramps Skin: no symptoms reported (MIRACLE BURRIS MD) All Other Systems Reviewed Negative Unless Noted: Yes (MIRACLE BURRIS MD) Past Hhknxud-Puamdy-Lwoiow Hx Patient Social History Alcohol Use: Rarely Uses Alcohol Beverage of Choice: Wine Recreational Drug Use: No Smoking Status: Former Smoker Former Smoker, Quit: Apr 08, 1981 Recent Foreign Travel: No Contact w/Someone Who Travel: No Recent Infectious Disease Expo: No Recent Hopitalizations: No (MIRACLE BURRIS MD) Immunizations Up To Date Tetanus Booster (TDap): More than 5yrs Date of Pneumonia Vaccine: Apr 08, 2012 Date of Influenza Vaccine: Jan 21, 2016 (MIRACLE BURRIS MD) Seasonal Allergies Seasonal Allergies: No (MIRACLE BURRIS MD) Surgeries History of Surgeries: Yes (LEFT RIB LYPOMA) Surgeries: Adenoidectomy, Appendectomy, Gallbladder, Hysterectomy, Orthopedic, Tonsillectomy (MIRACLE BURRIS MD) Respiratory History of Respiratory Disorde: No (MIRACLE BURRIS MD) Cardiovascular History of Cardiac Disorders: Yes (bradycardia) Cardiac Disorders: Heart Murmur, High Cholesterol, Hypertension (MIRACLE BURRIS MD) Neurological History of Neurological Disord: No (MIRACLE BURRIS MD) Reproductive System Hx Reproductive Disorders: No (MIRACLE BURRIS MD) Genitourinary History of Genitourinary Disor: No (MIRACLE BURRIS MD) Gastrointestinal History of Gastrointestinal Di: No (MIRACLE BURRIS MD) Musculoskeletal History of Musculoskeletal Dis: Yes Musculoskeletal Disorders: Rheumatoid Arthritis (MIRACLE BURRIS MD) Endocrine History of Endocrine Disorders: Yes Endocrine Disorders: Hypothyroidsim, Diabetes, Non-Insulin dep (MIRACLE BURRIS MD) HEENT History of HEENT Disorders: No (MIRACLE BURRIS MD) Cancer History of Cancer: No (MIRACLE BURRIS MD) Psychosocial History of Psychiatric Problem: Yes Behavioral Health Disorders: Depression (MIRACLE BURRIS MD) Integumentary History of Skin or Integumenta: No (MIRACLE BURRIS MD) Blood Transfusions History of Blood Disorders: Yes (OSTEOPENIA) Adverse Reaction to a Blood Tr: No (MIRACLE BURRIS MD) Reviewed Nursing Assessment Reviewed/Agree w Nursing PMH: Yes (MIRACLE BURRIS MD) Family Medical History Family Medial History: Cardiovascular disease 19 MOTHER, Onset:50's - 60 G8 BROTHER, Onset:30's - 40 G8 BROTHER, Onset:40's - 50 G8 BROTHER, Onset:30's - 40 Colon cancer 19 FATHER Diabetes mellitus 19 FATHER G8 SISTER, Onset:40's - 50 G8 SISTER G8 BROTHER Myocardial infarction G8 SISTER G8 SISTER (MIRACLE BURRIS MD) Family Medial History: Cardiovascular disease 19 MOTHER, Onset:50's - 60 G8 BROTHER, Onset:30's - 40 G8 BROTHER, Onset:40's - 50 G8 BROTHER, Onset:30's - 40 Colon cancer 19 FATHER Diabetes mellitus 19 FATHER G8 SISTER, Onset:40's - 50 G8 SISTER G8 BROTHER Myocardial infarction G8 SISTER G8 SISTER (EARLENE SOUZA MD) Physical Exam Vital Signs Vital Sign - Last 12Hours (EARLENE SOUZA MD) Vital Signs Capillary Refill : Less Than 3 Seconds (MIRACLE BURRIS MD) General Appearance: WD/WN, no apparent distress HEENT: PERRL/EOMI, TMs normal, pharyngeal erythema, other (moderate bilateral nasal congestion with clear rhinorrhea and moderate erythema) Neck: full range of motion, supple Respiratory: lungs clear, normal breath sounds Cardiovascular: regular rate, rhythm, no murmur Gastrointestinal: non tender, soft Extremities: non-tender, normal inspection Neurologic/Psychiatric: alert, oriented x 3 Skin: normal color, warm/dry (MIRACLE BURRIS MD) Progress/Results/Core Measures Suspected Sepsis Recent Fever Within 48 Hours: No Infection Criteria Present: None New/Unexplained Altered Menta: No Sepsis Screen: No Definite Risk Sepsis Diagnosis: SIRS Temperature:97.9 Pulse: 77 Respiratory Rate: 18 Blood Pressure 180 /100 Mean: 126 (MIRACLE BURRIS MD) Results/Orders Lab Results Laboratory Tests Test 04/27/17 06:10 04/27/17 06:15 Range/Units Urine Color YELLOW Urine Clarity CLEAR Urine pH 5 5-9 Urine Specific [place] 1.015 L 1.016-1.022 Urine Protein NEGATIVE NEGATIVE Urine Glucose (UA) NEGATIVE NEGATIVE Urine Ketones NEGATIVE NEGATIVE Urine Nitrite NEGATIVE NEGATIVE Urine Bilirubin NEGATIVE NEGATIVE Urine Urobilinogen NORMAL NORMAL MG/DL Urine Leukocyte Esterase 3+ H NEGATIVE Urine RBC (Auto) 1+ H NEGATIVE Urine RBC 2-5 H /HPF Urine WBC 2-5 /HPF Urine Squamous Epithelial Cells 5-10 /HPF Urine Crystals NONE /LPF Urine Bacteria TRACE /HPF Urine Casts NONE /LPF Urine Mucus NEGATIVE /LPF Urine Culture Indicated NO White Blood Count 4.6 4.3-11.0 10^3/uL Red Blood Count 4.22 L 4.35-5.85 10^6/uL Hemoglobin 13.2 11.5-16.0 G/DL Hematocrit 39 35-52 % Mean Corpuscular Volume 92 80-99 FL Mean Corpuscular Hemoglobin 31 25-34 PG Mean Corpuscular Hemoglobin Concent 34 32-36 G/DL Red Cell Distribution Width 13.4 10.0-14.5 % Platelet Count 189 130-400 10^3/uL Mean Platelet Volume 9.3 7.4-10.4 FL Neutrophils (%) (Auto) 71 42-75 % Lymphocytes (%) (Auto) 17 12-44 % Monocytes (%) (Auto) 11 0-12 % Eosinophils (%) (Auto) 1 0-10 % Basophils (%) (Auto) 0 0-10 % Neutrophils # (Auto) 3.3 1.8-7.8 X 10^3 Lymphocytes # (Auto) 0.8 L 1.0-4.0 X 10^3 Monocytes # (Auto) 0.5 0.0-1.0 X 10^3 Eosinophils # (Auto) 0.1 0.0-0.3 10^3/uL Basophils # (Auto) 0.0 0.0-0.1 10^3/uL Sodium Level 138 135-145 MMOL/L Potassium Level 4.0 3.6-5.0 MMOL/L Chloride Level 104 98-107 MMOL/L Carbon Dioxide Level 21 21-32 MMOL/L Anion Gap 13 5-14 MMOL/L Blood Urea Nitrogen 17 7-18 MG/DL Creatinine 0.93 0.60-1.30 MG/DL Estimat Glomerular Filtration Rate 60 BUN/Creatinine Ratio 18 Glucose Level 108 H 70-105 MG/DL Calcium Level 8.8 8.5-10.1 MG/DL Total Bilirubin 0.5 0.1-1.0 MG/DL Aspartate Amino Transf (AST/SGOT) 18 5-34 U/L Alanine Aminotransferase (ALT/SGPT) 15 0-55 U/L Alkaline Phosphatase 54 40-136 U/L Total Protein 6.4 6.4-8.2 GM/DL Albumin 3.7 3.2-4.5 GM/DL (EARLENE SOUZA MD) Micro Results Microbiology 04/27/17 Influenza Types A,B Antigen (SHARATH) - Final, Complete (EARLENE SOUZA MD) My Orders Orders - EARLENE SOUZA MD Oseltamivir 75 Mg (10's) Caps (Tamiflu 7 (04/27/17 09:00) Fentanyl Injection (Sublimaze Injection (04/27/17 07:15) Rx-Oseltamivir Caps (Rx-Tamiflu Caps) (04/27/17 07:13) Ns Iv 1000 Ml (Sodium Chloride 0.9%) (04/27/17 07:22) (EARLENE SOUZA MD) Medications Given in ED Current Medications Medications Dose Ordered Sig/Winifred Route Start Time Stop Time Status Last Admin Dose Admin Fentanyl Citrate 50 mcg ONCE ONCE IVP 04/27/17 07:15 04/27/17 07:16 DC 04/27/17 07:19 50 MCG Sodium Chloride 500 ml @ 0 mls/hr Q0M ONCE IV 04/27/17 06:05 04/27/17 06:07 DC 04/27/17 06:20 0 MLS/HR Sodium Chloride 1,000 ml @ STK-MED ONCE .ROUTE 04/27/17 07:22 04/27/17 07:24 DC 04/27/17 07:25 1,000 MLS/HR (EARLENE SOUZA MD) Vital Signs/I&O Vital Sign - Last 12Hours 04/27/17 04/27/17 04:45 04:45 Temp 97.9 Pulse 77 Resp 18 B/P (MAP) 180/100 (126) Pulse Ox 97 O2 Delivery Room Air Room Air (EARLENE SOUZA MD) Vital Signs/I&O Capillary Refill : Less Than 3 Seconds (MIRACLE BURRIS MD) Blood Pressure Mean: 126 Progress Note : Progress Note Seen and evaluated. IV, labs, chest x-ray and UA ordered. Influenza screen ordered. Normal saline 500 mL bolus. (MIRACLE BURRIS MD) Progress Note : Time: 07:35 Progress Note I assumed care of the patient from Dr. Burris at change of shifts. The patient's electrolytes were normal. Her influenza A was positive. The patient received her first dose of Tamiflu. She was given a liter of normal saline and 50 g of fentanyl IV. Patient would like to treat herself at home. She and her will return to the emergency department feeling further problems or questions. Recommended close follow-up with her client care coordinator on Saturday. 915 a.m. Patient was much improved with a liter of fluid and 50 g of fentanyl. The fentanyl 50 g IV was repeated at time of discharge. I gave the patient a prescription for 12 Vicodin for relief of her generalized pain at home. (EARLENE SOUZA MD) Departure Impression Impression: Primary Impression: Influenza A Disposition: 01 HOME, SELF-CARE Condition: Improved Departure-Patient Inst. Decision time for Depature: 07:37 (EARLENE SOUZA MD) Referrals: MARIO PAUL MD (PCP/Family) Primary Care Physician Patient Instructions: Flu Vaccine Add. Discharge Instructions: Continue with the Tamiflu at home. Rest and fluids. Ibuprofen and or Tylenol. Vicodin for more severe pain. Come back for any problems or questions. All discharge instructions reviewed with patient and/or family. Voiced understanding. MIRACLE BURRIS MD Apr 27, 2017 06:13 EARLENE SOUZA MD Apr 27, 2017 07:39
[2017-04-27 06:32] LABS: BASOPHILS % (AUTO) 0 % (0-10); EOSINOPHILS # (AUTO) 0.1 10^3/uL (0.0-0.3); EOSINOPHILS % (AUTO) 1 % (0-10); HEMATOCRIT 39 % (35-52); HEMOGLOBIN 13.2 G/DL (11.5-16.0); LYMPHOCYTES # (AUTO) 0.8 X 10^3 (1.0-4.0); LYMPHOCYTES % (AUTO) 17 % (12-44); MEAN CORPUSCULAR HEMOGLOBIN 31 PG (25-34); MEAN CORPUSCULAR HGB CONC 34 G/DL (32-36); MEAN CORPUSCULAR VOLUME 92 FL (80-99); MEAN PLATELET VOLUME 9.3 FL (7.4-10.4); MONOCYTES # (AUTO) 0.5 X 10^3 (0.0-1.0); MONOCYTES % (AUTO) 11 % (0-12); NEUTROPHILS # (AUTO) 3.3 X 10^3 (1.8-7.8); NEUTROPHILS % (AUTO) 71 % (42-75); PLATELET COUNT 189 10^3/uL (130-400); RED BLOOD COUNT 4.22 10^6/uL (4.35-5.85); RED CELL DISTRIBUTION WIDTH 13.4 % (10.0-14.5); WHITE BLOOD COUNT 4.6 10^3/uL (4.3-11.0)
[2017-04-27 06:35] LABS: BILIRUBIN,URINE NEGATIVE (NEGATIVE); CLARITY,URINE CLEAR; COLOR,URINE YELLOW; GLUCOSE, URINE (UA) NEGATIVE (NEGATIVE); KETONES,URINE NEGATIVE (NEGATIVE); LEUKOCYTE ESTERASE ,URINE 3+ (NEGATIVE); NITRITE,URINE NEGATIVE (NEGATIVE); PH,URINE 5 (5-9); PROTEIN,URINE NEGATIVE (NEGATIVE); UROBILINOGEN,URINE NORMAL (NORMAL)
[2017-04-27 06:45] LABS: BACTERIA,URINE TRACE /HPF
--- NOTE | 2017-04-27 06:54 | Diagnostic Imaging Report ---
INDICATION: Cough, congestion, and flu symptoms. PA and lateral views of the chest were obtained. Comparison is made with prior examinations from 05/06/16. FINDINGS: The heart size, mediastinal configuration, and pulmonary vascularity are within normal limits. There is no pleural effusion, pneumothorax, or pneumonia. The osseous structures are unremarkable. IMPRESSION: No acute cardiopulmonary abnormality. Dictated by: Dictated on workstation # [id number]
[2017-04-27] MEDS ORDERED: RX-OSELTAMIVIR 75 MG (TAMIFLU) BOX OF 10 PO ONE (07:13)
[2017-04-27 07:14] LABS: ALBUMIN 3.7 GM/DL (3.2-4.5); BILIRUBIN,TOTAL 0.5 MG/DL (0.1-1.0); CALCIUM 8.8 MG/DL (8.5-10.1); CREATININE SERUM 0.93 MG/DL (0.60-1.30); TOTAL PROTEIN 6.4 GM/DL (6.4-8.2)
[2017-04-27] MEDS ORDERED: fentaNYL INJECTION 100 MCG/2 ML AMP IVP ONE ×2 (07:15→09:30)
[2017-04-27] MEDS ORDERED: NS IV 1000 ML 1,000 ML ONE (07:22)
[2017-04-27] MEDS ORDERED: OSELTAMIVIR 75 MG (TAMIFLU) BOX OF 10 PO SCH (09:00)
[2017-04-27 09:46] VITALS: BP 167/90
== END 2017-04-27 09:45 | disposition home or self-care (01) ==
LOC: EDUNIT# 04:23 → ER 04:26
DX: J10.1 Influenza due to other identified influenza virus with other respiratory manifestations (principal); F32.9 Major depressive disorder, single episode, unspecified; E03.9 Hypothyroidism, unspecified; E11.9 Type 2 diabetes mellitus without complications; E78.00 Pure hypercholesterolemia, unspecified; M06.9 Rheumatoid arthritis, unspecified; I10 Essential (primary) hypertension; Z90.49 Acquired absence of other specified parts of digestive tract; Z90.710 Acquired absence of both cervix and uterus; Z90.89 Acquired absence of other organs; Z87.891 Personal history of nicotine dependence; Z79.84 Long term (current) use of oral hypoglycemic drugs; Z79.82 Long term (current) use of aspirin
CPT/HCPCS: 36415; 71046; 80053; 81000; 85025; 87804; 96361; 96374; 96376

== ENCOUNTER 2017-05-14 12:54 | Emergency (ER) | payer MEDICARE, OTHER ==
[~2017-05-14] VITALS: Ht 154.9 cm; Wt 79.4 kg
[2017-05-14] MEDS ORDERED: IBUPROFEN 800 MG (MOTRIN) TAB PO STA (13:15)
[2017-05-14] MEDS ORDERED: OSLT75C PO (13:59)
--- NOTE | 2017-05-14 13:59 | ED Cough/URI ---
General Chief Complaint: Cough/Cold/Flu Symptoms Stated Complaint: FLU LIKE SYMPTOMS Nursing Triage Note: pt reports she was diagnosed with flu a on 04/27/17 and has taken tamiflu. pt reports she started to feel better but about 2 days ago she developed increased nasal drainage, sore throat, ear ache, headache, cough and fevers. Source: patient, spouse Exam Limitations: no limitations History of Present Illness Date Seen by Provider: May 14, 2017 Time Seen by Provider: 13:07 Initial Comments 66-year-old female patient presents to the emergency Department with reports of 2 day onset of sore throat, rhinorrhea, sneezing, ear pain, headache, cough, and fevers. Patient was diagnosed on 04/27/17 with influenza A and had taken Tamiflu. At the last week patient was exposed to influenza B. has similar symptoms. Timing/Duration: other (2 days) Severity/Quality: productive cough Prior Episodes/Possible Cause: no prior episodes Modifying Factors: Worse With Coughing Allergies and Home Medications Allergies Coded Allergies: Sulfa (Sulfonamide Antibiotics) (Verified Allergy, Unknown, 03/05/08) codeine (Verified Allergy, Unknown, 03/05/08) meperidine (Verified Allergy, Unknown, 03/05/08) morphine (Verified Allergy, Unknown, 03/05/08) penicillin G (Verified Allergy, Unknown, 03/05/08) Home Medications Aspirin 81 Mg Tablet.dr, 81 MG PO Q48H, (Reported) Calcium Carbonate/Vitamin D3 1 Each Tablet, 1 TAB PO BID, (Reported) Labetalol HCl 100 Mg Tablet, 100 MG PO BID, (Reported) Levothyroxine Sodium 75 Mcg Tablet, 75 MCG PO DAILY, (Reported) Lovastatin 10 Mg Tablet, 10 MG PO HS, (Reported) Metformin HCl 500 Mg Tablet, 500 MG PO BID, #60 HOLD X 1 WEEK Prescribed by: MARIO PAUL on 05/09/16 0844 Multivitamin with Minerals 1 Each Tablet, 1 TAB PO DAILY, (Reported) Olmesartan Medoxomil 40 Mg Tablet, 40 MG PO DAILY, (Reported) [place] 3 Polyunsat Fatty Acids 1,000 Mg Cap, 2,000 MG PO BID, (Reported) TAKES 2 (1000MG) CAPSULES Oseltamivir Phosphate 75 Mg Cap, 75 MG PO BID, #10 Ref 0 Prescribed by: NADEEM HUNTER on 05/14/17 1359 Constitutional: see HPI, chills, No dizziness, fever, malaise EENTM: see HPI, ear pain, nose congestion, throat pain, No ear discharge, No hoarseness Respiratory: see HPI, cough, No dyspnea on exertion, phlegm, No short of breath , No stridor, No wheezing Cardiovascular: no symptoms reported Gastrointestinal: no symptoms reported Genitourinary: no symptoms reported Musculoskeletal: other (generalized body aches) Skin: no symptoms reported Psychiatric/Neurological: Headache, Denies Numbness, Denies Paresthesia, Denies Seizure, Denies Tingling, Denies Weakness All Other Systems Reviewed Negative Unless Noted: Yes (Negative excepted noted.) Past Aikqzkl-Ohkqzs-Gbpinb Hx Patient Social History Alcohol Use: Denies Use Number of Drinks Today: Alcohol Beverage of Choice: Wine Recreational Drug Use: No Smoking Status: Former Smoker Former Smoker, Quit: Apr 08, 1981 Recent Foreign Travel: No Contact w/Someone Who Travel: No Recent Infectious Disease Expo: No Recent Hopitalizations: No Physical Abuse: No Sexual Abuse: No Mistreated: No Fear: No Immunizations Up To Date Tetanus Booster (TDap): More than 5yrs Date of Pneumonia Vaccine: Apr 08, 2012 Date of Influenza Vaccine: Jan 21, 2016 Seasonal Allergies Seasonal Allergies: No Surgeries History of Surgeries: Yes (LEFT RIB LYPOMA) Surgeries: Adenoidectomy, Appendectomy, Gallbladder, Hysterectomy, Orthopedic, Tonsillectomy Respiratory History of Respiratory Disorde: No Cardiovascular History of Cardiac Disorders: Yes (bradycardia) Cardiac Disorders: Heart Murmur, High Cholesterol, Hypertension Neurological History of Neurological Disord: No Reproductive System Hx Reproductive Disorders: No Genitourinary History of Genitourinary Disor: No Gastrointestinal History of Gastrointestinal Di: No Musculoskeletal History of Musculoskeletal Dis: Yes Musculoskeletal Disorders: Rheumatoid Arthritis Endocrine History of Endocrine Disorders: Yes Endocrine Disorders: Hypothyroidsim, Diabetes, Non-Insulin dep HEENT History of HEENT Disorders: No Cancer History of Cancer: No Psychosocial History of Psychiatric Problem: Yes Behavioral Health Disorders: Depression Suicide Risk Score: 0 Integumentary History of Skin or Integumenta: No Blood Transfusions History of Blood Disorders: Yes (OSTEOPENIA) Adverse Reaction to a Blood Tr: No Reviewed Nursing Assessment Reviewed/Agree w Nursing PMH: Yes Family Medical History Significant Family History: No Pertinent Family Hx Family Medial History: Cardiovascular disease 19 MOTHER, Onset:50's - 60 G8 BROTHER, Onset:30's - 40 G8 BROTHER, Onset:40's - 50 G8 BROTHER, Onset:30's - 40 Colon cancer 19 FATHER Diabetes mellitus 19 FATHER G8 SISTER, Onset:40's - 50 G8 SISTER G8 BROTHER Myocardial infarction G8 SISTER G8 SISTER Physical Exam Vital Signs Vital Signs - First Documented 05/14/17 13:07 Temp 97.4 Pulse 73 Resp 20 B/P (MAP) 155/104 (121) Pulse Ox 96 O2 Delivery Room Air Capillary Refill : Less Than 3 Seconds General Appearance: WD/WN, no apparent distress Eyes: Bilateral Eye Normal Inspection, Bilateral Eye PERRL, Bilateral Eye EOMI HEENT: PERRL/EOMI, TMs normal, pharyngeal erythema, No tonsillar exudate, other (positive nasal congestion and rhinorrhea) Neck: non-tender, full range of motion, supple, lymphadenopathy (R), lymphadenopathy (L) Respiratory: lungs clear, normal breath sounds, no respiratory distress, no accessory muscle use Cardiovascular: normal peripheral pulses, regular rate, rhythm, no edema, no murmur Gastrointestinal: normal bowel sounds, non tender, soft, no organomegaly Extremities: no pedal edema, no calf tenderness, normal capillary refill Neurologic/Psychiatric: alert, normal mood/affect, oriented x 3 Skin: normal color, warm/dry Progress/Results/Core Measures Suspected Sepsis Recent Fever Within 48 Hours: Yes Infection Criteria Present: Suspected New Infection New/Unexplained Altered Menta: No Sepsis Screen: No Definite Risk Sepsis Diagnosis: SIRS Temperature:97.4 Pulse: 73 Respiratory Rate: 20 Blood Pressure 155 /104 Mean: 121 Results/Orders Micro Results Microbiology 05/14/17 Influenza Types A,B Antigen (SHARATH) - Final, Complete My Orders Orders - NADEEM HUNTER Influenza A And B Antigens (05/14/17 13:15) Ibuprofen Tablet (Motrin Tablet) (05/14/17 13:15) Vital Signs/I&O Vital Sign - Last 12Hours 05/14/17 05/14/17 05/14/17 13:07 13:07 14:06 Temp 97.4 98.9 Pulse 73 87 Resp 20 20 B/P (MAP) 155/104 (121) Pulse Ox 96 99 O2 Delivery Room Air Capillary Refill : Less Than 3 Seconds Blood Pressure Mean: 121 Departure Communication (Admissions) Progress Notes Laboratory findings discussed with the patient. Due to recent influenza B exposure and symptoms suspicious for influenza-like illness, patient was given a prescription for Tamiflu. Discharge to home with follow-up as an outpatient with her primary care provider. Impression Impression: Primary Impression: Influenza-like symptoms Additional Impression: influenza B exposure Disposition: HOME, SELF-CARE Condition: Improved Departure-Patient Inst. Decision time for Depature: 13:59 Referrals: MARIO PAUL MD (PCP/Family) Primary Care Physician Add. Discharge Instructions: All discharge instructions reviewed with patient and/or family. Voiced understanding. Medications as instructed. Tylenol extra strength over-the- counter as directed by remaining fracture for headache, fever, or pain. Ibuprofen 800 mg by mouth every 8 hours as needed for pain, fever, or body aches. Drink plenty of fluids. Cool humidifier. Saline nasal spray and Afrin nasal spray [id number] as needed for symptoms. Coricidin or Mucinex over- the-counter as needed for congestion. Follow-up with your family practitioner if no improvement in symptoms. Return in the emergency department for worsened symptoms or any other concerns. Scripts Oseltamivir Phosphate (Tamiflu) 75 Mg Cap 75 MG PO BID, #10 CAP 0 Refills Prov: NADEEM HUNTER 05/14/17 NADEEM HUNTER May 14, 2017 13:59
[2017-05-14 14:06] VITALS: BP 142/90
== END 2017-05-14 14:06 | disposition home or self-care (01) ==
LOC: EDUNIT# 12:54 → ER 12:57
DX: J11.1 Influenza due to unidentified influenza virus with other respiratory manifestations (principal); E03.9 Hypothyroidism, unspecified; E11.9 Type 2 diabetes mellitus without complications; F32.9 Major depressive disorder, single episode, unspecified; M06.9 Rheumatoid arthritis, unspecified; E78.00 Pure hypercholesterolemia, unspecified; I10 Essential (primary) hypertension; Z90.49 Acquired absence of other specified parts of digestive tract; Z90.89 Acquired absence of other organs; Z90.710 Acquired absence of both cervix and uterus; Z87.891 Personal history of nicotine dependence; Z88.2 Allergy status to sulfonamides; Z88.5 Allergy status to narcotic agent; Z88.0 Allergy status to penicillin; Z79.82 Long term (current) use of aspirin; Z79.84 Long term (current) use of oral hypoglycemic drugs
CPT/HCPCS: 87804; 99283

== ENCOUNTER 2017-06-06 14:45 | Emergency (ER) | payer MEDICARE, OTHER ==
[~2017-06-06] VITALS: Ht 154.9 cm; Wt 83.0 kg
[~2017-06-06 14:45] MED LIST changes: +OSLT75C PO
[2017-06-06 15:23] LABS: BASOPHILS % (AUTO) 0 % (0-10); EOSINOPHILS # (AUTO) 0.3 10^3/uL (0.0-0.3); EOSINOPHILS % (AUTO) 3 % (0-10); HEMATOCRIT 43 % (35-52); HEMOGLOBIN 14.4 G/DL (11.5-16.0); LYMPHOCYTES # (AUTO) 2.8 X 10^3 (1.0-4.0); LYMPHOCYTES % (AUTO) 28 % (12-44); MEAN CORPUSCULAR HEMOGLOBIN 31 PG (25-34); MEAN CORPUSCULAR HGB CONC 33 G/DL (32-36); MEAN CORPUSCULAR VOLUME 93 FL (80-99); MEAN PLATELET VOLUME 9.3 FL (7.4-10.4); MONOCYTES # (AUTO) 0.9 X 10^3 (0.0-1.0); MONOCYTES % (AUTO) 9 % (0-12); NEUTROPHILS # (AUTO) 6.1 X 10^3 (1.8-7.8); NEUTROPHILS % (AUTO) 61 % (42-75); PLATELET COUNT 314 10^3/uL (130-400); RED BLOOD COUNT 4.65 10^6/uL (4.35-5.85); RED CELL DISTRIBUTION WIDTH 14.2 % (10.0-14.5); WHITE BLOOD COUNT 10.1 10^3/uL (4.3-11.0)
[2017-06-06 15:45] LABS: ALBUMIN 3.8 GM/DL (3.2-4.5); BILIRUBIN,TOTAL 0.3 MG/DL (0.1-1.0); CREATININE SERUM 0.96 MG/DL (0.60-1.30); POTASSIUM 4.4 MMOL/L (3.6-5.0); TOTAL PROTEIN 6.6 GM/DL (6.4-8.2)
--- NOTE | 2017-06-06 16:14 | ED General ---
General Chief Complaint: General Problems/Pain Stated Complaint: WEAKNESS BONE PAIN/NAUSEA Nursing Triage Note: PT TO ROOM 9 CO OF WEAKNESS, FAN AND LONG BONE PAIN SINCE SATURDAY. PT STATES HAS NOT FELT GOOD SINCE APR HAS HAD FLU A AND B AND RECENTLY SINUS INFECTION. Nursing Sepsis Screen: No Definite Risk Source of Information: Patient Exam Limitations: No Limitations History of Present Illness Date Seen by Provider: Jun 06, 2017 Time Seen by Provider: 16:11 Initial Comments The patient is a 66-year-old white female who presents with bone pain malaise and general lack of energy. She reports that she was found to have influenza a which began in early to mid April. She then had a recrudescence of symptoms and was found to have influenza B. Following that she was said to have a sinus infection and was given antibiotics and a Medrol Dosepak. He continues to just generally feel without energy and is having considerable bone pain. She takes Mobic which normally manages her chronic Arthritic problems. This is been of no particular value. She states one day last week she felt particularly good and ate a nice but small meal. 5 hours later she vomited that up in its entirety. Timing/Duration: Other (2 months) Associated Systoms: Headaches, Loss of Appetite, Nausea/Vomiting, Other (bone pain) Allergies and Home Medications Allergies Coded Allergies: Sulfa (Sulfonamide Antibiotics) (Verified Allergy, Unknown, 03/05/08) codeine (Verified Allergy, Unknown, 03/05/08) meperidine (Verified Allergy, Unknown, 03/05/08) morphine (Verified Allergy, Unknown, 03/05/08) penicillin G (Verified Allergy, Unknown, 03/05/08) Home Medications Aspirin 81 Mg Tablet.dr, 81 MG PO Q48H, (Reported) Calcium Carbonate/Vitamin D3 1 Each Tablet, 1 TAB PO BID, (Reported) Labetalol HCl 100 Mg Tablet, 100 MG PO BID, (Reported) Levothyroxine Sodium 75 Mcg Tablet, 75 MCG PO DAILY, (Reported) Lovastatin 10 Mg Tablet, 10 MG PO HS, (Reported) Metformin HCl 500 Mg Tablet, 500 MG PO BID HOLD X 1 WEEK Prescribed by: MARIO PAUL on 05/09/16 0844 Multivitamin with Minerals 1 Each Tablet, 1 TAB PO DAILY, (Reported) Olmesartan Medoxomil 40 Mg Tablet, 40 MG PO DAILY, (Reported) [place]ero 3 Polyunsat Fatty Acids 1,000 Mg Cap, 2,000 MG PO BID, (Reported) TAKES 2 (1000MG) CAPSULES Patient Home Medication List Home Medication List Reviewed: Yes Constitutional: see HPI EENTM: other (sinus congestion) Cardiovascular: no symptoms reported Gastrointestinal: loss of appetite, nausea, vomiting Genitourinary: no symptoms reported Musculoskeletal: joint pain, other (rather diffuse bone pain. This is lorraine articular) Past Rnvfeax-Oibqdl-Moypvk Hx Patient Social History Alcohol Use: Denies Use Number of Drinks Today: Alcohol Beverage of Choice: Wine Recreational Drug Use: No Smoking Status: Never a Smoker Former Smoker, Quit: Apr 08, 1981 Recent Foreign Travel: No Contact w/Someone Who Travel: No Recent Infectious Disease Expo: No Recent Hopitalizations: No Immunizations Up To Date Tetanus Booster (TDap): More than 5yrs Date of Pneumonia Vaccine: Apr 08, 2012 Date of Influenza Vaccine: Jan 21, 2016 Seasonal Allergies Seasonal Allergies: No Surgeries History of Surgeries: Yes (LEFT RIB LYPOMA) Surgeries: Adenoidectomy, Appendectomy, Gallbladder, Hysterectomy, Orthopedic, Tonsillectomy Respiratory History of Respiratory Disorde: No Cardiovascular History of Cardiac Disorders: Yes (bradycardia) Cardiac Disorders: Heart Murmur, High Cholesterol, Hypertension Neurological History of Neurological Disord: No Reproductive System 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 Genitourinary History of Genitourinary Disor: No Gastrointestinal History of Gastrointestinal Di: No Musculoskeletal History of Musculoskeletal Dis: Yes Musculoskeletal Disorders: Rheumatoid Arthritis Endocrine History of Endocrine Disorders: Yes Endocrine Disorders: Hypothyroidsim, Diabetes, Non-Insulin dep HEENT History of HEENT Disorders: No Cancer History of Cancer: No Psychosocial History of Psychiatric Problem: Yes Behavioral Health Disorders: Depression Integumentary History of Skin or Integumenta: No Blood Transfusions History of Blood Disorders: Yes (OSTEOPENIA) Adverse Reaction to a Blood Tr: No Family Medical History Significant Family History: No Pertinent Family Hx Family Medial History: Cardiovascular disease 19 MOTHER, Onset:50's - 60 G8 BROTHER, Onset:30's - 40 G8 BROTHER, Onset:40's - 50 G8 BROTHER, Onset:30's - 40 Colon cancer 19 FATHER Diabetes mellitus 19 FATHER G8 SISTER, Onset:40's - 50 G8 SISTER G8 BROTHER Myocardial infarction G8 SISTER G8 SISTER Physical Exam Vital Signs Vital Signs - First Documented 06/06/17 15:10 Temp 98.2 Pulse 68 Resp 18 B/P (MAP) 163/88 (113) Pulse Ox 100 Capillary Refill : Less Than 3 Seconds General Appearance: No Apparent Distress, WD/WN Eyes: Bilateral Eye Normal Inspection HEENT: Normal ENT Inspection Neck: Normal Inspection Respiratory: Chest Non Tender, Lungs Clear, Normal Breath Sounds, No Accessory Muscle Use, No Respiratory Distress Cardiovascular: Regular Rate, Rhythm, No Edema, No Gallop, No JVD, No Murmur, Normal Peripheral Pulses Gastrointestinal: Normal Bowel Sounds, No Organomegaly, No Pulsatile Mass, Non Tender, Soft Back: Normal Inspection, No CVA Tenderness, No Vertebral Tenderness Neurologic/Psychiatric: Alert, Oriented x3, No Motor/Sensory Deficits, Normal 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 Some of this is noted in the feet as well. Progress/Results/Core Measures Suspected Sepsis Recent Fever Within 48 Hours: No Infection Criteria Present: None New/Unexplained Altered Menta: No Sepsis Screen: No Definite Risk Sepsis Diagnosis: SIRS Temperature:98.2 Pulse: 68 Respiratory Rate: 18 Laboratory Tests 06/06/17 15:15: White Blood Count 10.1 Blood Pressure 163 /88 Mean: 113 Laboratory Tests 06/06/17 15:15: Creatinine 0.96, Platelet Count 314, Total Bilirubin 0.3 Results/Orders Lab Results Laboratory Tests Test 06/06/17 14:50 06/06/17 15:15 06/06/17 16:22 Range/Units Erythrocyte Sedimentation Rate 2 0-30 MM/HR White Blood Count 10.1 4.3-11.0 10^3/uL Red Blood Count 4.65 4.35-5.85 10^6/uL Hemoglobin 14.4 11.5-16.0 G/DL Hematocrit 43 35-52 % Mean Corpuscular Volume 93 80-99 FL Mean Corpuscular Hemoglobin 31 25-34 PG Mean Corpuscular Hemoglobin Concent 33 32-36 G/DL Red Cell Distribution Width 14.2 10.0-14.5 % Platelet Count 314 130-400 10^3/uL Mean Platelet Volume 9.3 7.4-10.4 FL Neutrophils (%) (Auto) 61 42-75 % Lymphocytes (%) (Auto) 28 12-44 % Monocytes (%) (Auto) 9 0-12 % Eosinophils (%) (Auto) 3 0-10 % Basophils (%) (Auto) 0 0-10 % Neutrophils # (Auto) 6.1 1.8-7.8 X 10^3 Lymphocytes # (Auto) 2.8 1.0-4.0 X 10^3 Monocytes # (Auto) 0.9 0.0-1.0 X 10^3 Eosinophils # (Auto) 0.3 0.0-0.3 10^3/uL Basophils # (Auto) 0.0 0.0-0.1 10^3/uL Sodium Level 139 135-145 MMOL/L Potassium Level 4.4 3.6-5.0 MMOL/L Chloride Level 101 98-107 MMOL/L Carbon Dioxide Level 23 21-32 MMOL/L Anion Gap 15 H 5-14 MMOL/L Blood Urea Nitrogen 22 H 7-18 MG/DL Creatinine 0.96 0.60-1.30 MG/DL Estimat Glomerular Filtration Rate 58 BUN/Creatinine Ratio 23 Glucose Level 76 70-105 MG/DL Calcium Level 9.0 8.5-10.1 MG/DL Total Bilirubin 0.3 0.1-1.0 MG/DL Aspartate Amino Transf (AST/SGOT) 13 5-34 U/L Alanine Aminotransferase (ALT/SGPT) 16 0-55 U/L Alkaline Phosphatase 67 40-136 U/L Total Protein 6.6 6.4-8.2 GM/DL Albumin 3.8 3.2-4.5 GM/DL Urine Color YELLOW Urine Clarity CLEAR Urine pH 6 5-9 Urine Specific [place] 1.010 L 1.016-1.022 Urine Protein NEGATIVE NEGATIVE Urine Glucose (UA) NEGATIVE NEGATIVE Urine Ketones NEGATIVE NEGATIVE Urine Nitrite NEGATIVE NEGATIVE Urine Bilirubin NEGATIVE NEGATIVE Urine Urobilinogen NORMAL NORMAL MG/DL Urine Leukocyte Esterase 2+ H NEGATIVE Urine RBC (Auto) NEGATIVE NEGATIVE Urine RBC NONE /HPF Urine WBC 5-10 H /HPF Urine Squamous Epithelial Cells 2-5 /HPF Urine Crystals NONE /LPF Urine Bacteria TRACE /HPF Urine Casts NONE /LPF Urine Mucus NEGATIVE /LPF Urine Culture Indicated YES My Orders Orders - ABRAHAN REINOSO MD Cbc With Automated Diff (06/06/17 15:18) Comprehensive Metabolic Panel (06/06/17 15:18) Ua Culture If Indicated (06/06/17 15:18) Erythrocyte Sedimentation Rate (06/06/17 16:07) Urine Culture (06/06/17 16:22) Vital Signs/I&O Vital Sign - Last 12Hours 06/06/17 15:10 Temp 98.2 Pulse 68 Resp 18 B/P (MAP) 163/88 (113) Pulse Ox 100 Capillary Refill : Less Than 3 Seconds Blood Pressure Mean: 113 Departure Communication (Admissions) Progress Notes Lab was normal with the exception of a marginal UA. Leukocyte Esterase was positive and there were 5-10 wbc's reported for high-power field Impression Impression: Primary Impression: Malaise and fatigue Additional Impression: urinary tract infection Disposition: HOME, SELF-CARE Condition: Stable/Unchanged Departure-Patient Inst. Decision time for Depature: 17:06 Referrals: MARIO PAUL MD (PCP/Family) Primary Care Physician Patient Instructions: Urinary Tract Infection, Adult (DC) Add. Discharge Instructions: All discharge instructions reviewed with patient and/or family. Voiced understanding. Take Omnicef until gone. Lots of fluids. Scripts Cefdinir (Cefdinir) 300 Mg Capsule 300 MG PO twice a day, #14 CAP Prov: ABRAHAN REINOSO MD 06/06/17 ABRAHAN REINOSO MD Jun 06, 2017 16:14
[2017-06-06 16:30] LABS: BILIRUBIN,URINE NEGATIVE (NEGATIVE); CLARITY,URINE CLEAR; COLOR,URINE YELLOW; GLUCOSE, URINE (UA) NEGATIVE (NEGATIVE); KETONES,URINE NEGATIVE (NEGATIVE); LEUKOCYTE ESTERASE ,URINE 2+ (NEGATIVE); NITRITE,URINE NEGATIVE (NEGATIVE); PH,URINE 6 (5-9); PROTEIN,URINE NEGATIVE (NEGATIVE); UROBILINOGEN,URINE NORMAL (NORMAL)
[2017-06-06 16:38] LABS: BACTERIA,URINE TRACE /HPF
[2017-06-06] MEDS ORDERED: CEFD300C3 PO (17:08)
[2017-06-06 17:47] VITALS: BP 163/88
== END 2017-06-06 17:47 | disposition home or self-care (01) ==
LOC: EDUNIT# 14:45 → ER 14:48
DX: N39.0 Urinary tract infection, site not specified (principal); E78.00 Pure hypercholesterolemia, unspecified; I10 Essential (primary) hypertension; M06.9 Rheumatoid arthritis, unspecified; E03.9 Hypothyroidism, unspecified; E11.9 Type 2 diabetes mellitus without complications; F32.9 Major depressive disorder, single episode, unspecified; Z82.49 Family history of ischemic heart disease and other diseases of the circulatory system; Z90.49 Acquired absence of other specified parts of digestive tract; Z90.710 Acquired absence of both cervix and uterus; Z80.0 Family history of malignant neoplasm of digestive organs; Z90.89 Acquired absence of other organs; Z88.2 Allergy status to sulfonamides; Z88.5 Allergy status to narcotic agent; Z88.0 Allergy status to penicillin; Z88.8 Allergy status to other drugs, medicaments and biological substances; Z79.82 Long term (current) use of aspirin; Z79.84 Long term (current) use of oral hypoglycemic drugs; Z87.891 Personal history of nicotine dependence
CPT/HCPCS: 36415; 80053; 81000; 85025; 85652; 87088

== ENCOUNTER 2017-06-10 03:33 | Emergency (ER) | payer MEDICARE, OTHER ==
[~2017-06-10] VITALS: Ht 154.9 cm; Wt 81.6 kg
[~2017-06-10 03:33] MED LIST changes: +CEFD300C3 PO
[2017-06-10 04:08] LABS: BILIRUBIN,URINE NEGATIVE (NEGATIVE); CLARITY,URINE CLEAR; COLOR,URINE YELLOW; GLUCOSE, URINE (UA) NEGATIVE (NEGATIVE); KETONES,URINE NEGATIVE (NEGATIVE); LEUKOCYTE ESTERASE ,URINE 2+ (NEGATIVE); NITRITE,URINE NEGATIVE (NEGATIVE); PH,URINE 6.5 (5-9); PROTEIN,URINE NEGATIVE (NEGATIVE); UROBILINOGEN,URINE NORMAL (NORMAL)
[2017-06-10 04:14] LABS: BACTERIA,URINE TRACE /HPF; RBC,URINE RARE /HPF; WBC,URINE RARE /HPF
[2017-06-10] MEDS ORDERED: diphenhydrAMINE 25 MG TAB (BENADRYL) PO ONE (04:15)
--- NOTE | 2017-06-10 04:40 | ED General ---
General Chief Complaint: Allergic Reaction Stated Complaint: SWOLLEN MOUTH DUE TO POSS ALLERGIC REACTION Nursing Triage Note: PATIENT STATES SHE IS HAVING AN ALLERGIC REACTION BUT SHE IS NOT SURE TO WHAT. SHE STARTED TAKING CEFDINIR 3 DAYS AGO FOR A UTI THAT IS NOT IMPROVING. SHE WOKE UP THIS MORNING AND NOTICED HER VULVA AND RECTAL AREA WERE SWOLLEN WELL IN HER MOUTH. SHE STATES IT FEELS LIKE HER TONGUE HAS BLISTERS ON IT. SHE STATES THAT SHE ALSO ATE BREAD FOR DINNER THAT HAD WALNUTS IN IT AND SHE THINKS SHE HAS HAD SIMILAR REACTIONS TO WALNUTS IN THE PAST BUT NOT SEVERE. Nursing Sepsis Screen: No Definite Risk History of Present Illness Date Seen by Provider: Jun 10, 2017 Time Seen by Provider: 03:54 Initial Comments Here with report of a few things including vulvovaginal swelling and burning after urination and swelling or tingling of her time in mouth. She's had a rather difficult course over the past couple months including infection with both influenza B and A followed by sinus infection and then urinary tract infection. She is currently on Omnicef for the urinary tract infection and has been on that for 3 days. She did eat some walnut bread tonight and states that sometimes she gets some tingling on her tongue when eating walnuts. She denies diarrhea. Timing/Duration: 1-3 Hours Severity: Moderate Associated Systoms: No Chest Pain, No Fever/Chills, No Nausea/Vomiting, No Shortness of Air, No Weakness Allergies and Home Medications Allergies Coded Allergies: Sulfa (Sulfonamide Antibiotics) (Verified Allergy, Unknown, 03/05/08) codeine (Verified Allergy, Unknown, 03/05/08) meperidine (Verified Allergy, Unknown, 03/05/08) morphine (Verified Allergy, Unknown, 03/05/08) penicillin G (Verified Allergy, Unknown, 03/05/08) Home Medications Aspirin 81 Mg Tablet.dr, 81 MG PO Q48H, (Reported) Calcium Carbonate/Vitamin D3 1 Each Tablet, 1 TAB PO BID, (Reported) Cefdinir 300 Mg Capsule, 300 MG PO twice a day Prescribed by: ABRAHAN REINOSO on 06/06/17 3078 Labetalol HCl 100 Mg Tablet, 100 MG PO BID, (Reported) Levothyroxine Sodium 75 Mcg Tablet, 75 MCG PO DAILY, (Reported) Lovastatin 10 Mg Tablet, 10 MG PO HS, (Reported) Metformin HCl 500 Mg Tablet, 500 MG PO BID HOLD X 1 WEEK Prescribed by: MARIO PAUL on 05/09/16 0844 Multivitamin with Minerals 1 Each Tablet, 1 TAB PO DAILY, (Reported) Olmesartan Medoxomil 40 Mg Tablet, 40 MG PO DAILY, (Reported) [place] 3 Polyunsat Fatty Acids 1,000 Mg Cap, 2,000 MG PO BID, (Reported) TAKES 2 (1000MG) CAPSULES Patient Home Medication List Home Medication List Reviewed: Yes Constitutional: see HPI, No chills, No fever, No weakness EENTM: see HPI, mouth pain Respiratory: No cough, No short of breath Cardiovascular: No no symptoms reported Gastrointestinal: No abdominal pain, No nausea, No vomiting Genitourinary: dysuria, pain : No Musculoskeletal: no symptoms reported Skin: change in color, rash Psychiatric/Neurological: No Symptoms Reported Hematologic/Lymphatic: No Symptoms Reported All Other Systems Reviewed Negative Unless Noted: Yes Past Xcpqctt-Uhzdiv-Bqsamf Hx Patient Social History Alcohol Use: Denies Use Number of Drinks Today: Alcohol Beverage of Choice: Wine Recreational Drug Use: No Smoking Status: Never a Smoker Former Smoker, Quit: Apr 08, 1981 2nd Hand Smoke Exposure: No Recent Foreign Travel: No Contact w/Someone Who Travel: No Recent Infectious Disease Expo: No Recent Hopitalizations: No Physical Abuse: No Sexual Abuse: No Immunizations Up To Date Tetanus Booster (TDap): More than 5yrs Date of Pneumonia Vaccine: Apr 08, 2012 Date of Influenza Vaccine: Jan 21, 2016 Seasonal Allergies Seasonal Allergies: No Surgeries History of Surgeries: Yes (LEFT RIB LYPOMA) Surgeries: Adenoidectomy, Appendectomy, Gallbladder, Hysterectomy, Orthopedic, Tonsillectomy Respiratory History of Respiratory Disorde: No Cardiovascular History of Cardiac Disorders: Yes (bradycardia) Cardiac Disorders: Heart Murmur, High Cholesterol, Hypertension Neurological History of Neurological Disord: No Reproductive System Hx 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 Genitourinary History of Genitourinary Disor: No Gastrointestinal History of Gastrointestinal Di: No Musculoskeletal History of Musculoskeletal Dis: Yes Musculoskeletal Disorders: Rheumatoid Arthritis Endocrine History of Endocrine Disorders: Yes Endocrine Disorders: Hypothyroidsim, Diabetes, Non-Insulin dep HEENT History of HEENT Disorders: No Cancer History of Cancer: No Psychosocial History of Psychiatric Problem: Yes Behavioral Health Disorders: Depression Suicide Risk Score: 0 Integumentary History of Skin or Integumenta: No Blood Transfusions History of Blood Disorders: Yes (OSTEOPENIA) Adverse Reaction to a Blood Tr: No Reviewed Nursing Assessment Reviewed/Agree w Nursing PMH: Yes Family Medical History Significant Family History: No Pertinent Family Hx Family Medial History: Cardiovascular disease 19 MOTHER, Onset:50's - 60 G8 BROTHER, Onset:30's - 40 G8 BROTHER, Onset:40's - 50 G8 BROTHER, Onset:30's - 40 Colon cancer 19 FATHER Diabetes mellitus 19 FATHER G8 SISTER, Onset:40's - 50 G8 SISTER G8 BROTHER Myocardial infarction G8 SISTER G8 SISTER Physical Exam Vital Signs Vital Signs - First Documented 06/10/17 03:42 Temp 97.0 Pulse 76 Resp 18 B/P (MAP) 199/97 (131) Pulse Ox 95 Capillary Refill : Less Than 3 Seconds General Appearance: No Apparent Distress, WD/WN HEENT: PERRL/EOMI, Normal ENT Inspection, Pharynx Normal Neck: Non Tender, Supple Respiratory: Lungs Clear, Normal Breath Sounds Cardiovascular: Regular Rate, Rhythm, No Murmur Gastrointestinal: Non Tender, Soft Back: Normal Inspection, No CVA Tenderness, No Vertebral Tenderness Extremity: Normal Range of Motion, Non Tender Neurologic/Psychiatric: Alert, Oriented x3 Skin: Normal Color, Warm/Dry Progress/Results/Core Measures Suspected Sepsis Recent Fever Within 48 Hours: No Infection Criteria Present: None New/Unexplained Altered Menta: No Sepsis Screen: No Definite Risk Sepsis Diagnosis: SIRS Temperature:97.0 Pulse: 76 Respiratory Rate: 18 Blood Pressure 199 /97 Mean: 131 Results/Orders Lab Results Laboratory Tests Test 06/10/17 03:55 Range/Units Urine Color YELLOW Urine Clarity CLEAR Urine pH 6.5 5-9 Urine Specific [place] 1.010 L 1.016-1.022 Urine Protein NEGATIVE NEGATIVE Urine Glucose (UA) NEGATIVE NEGATIVE Urine Ketones NEGATIVE NEGATIVE Urine Nitrite NEGATIVE NEGATIVE Urine Bilirubin NEGATIVE NEGATIVE Urine Urobilinogen NORMAL NORMAL MG/DL Urine Leukocyte Esterase 2+ H NEGATIVE Urine RBC (Auto) 1+ H NEGATIVE Urine RBC RARE /HPF Urine WBC RARE /HPF Urine Squamous Epithelial Cells 2-5 /HPF Urine Crystals NONE /LPF Urine Bacteria TRACE /HPF Urine Casts NONE /LPF Urine Mucus NEGATIVE /LPF Urine Culture Indicated NO My Orders Orders - MIRACLE BURRIS MD Ua Culture If Indicated (06/10/17 04:03) Diphenhydramine Tablet (Benadryl Tablet) (06/10/17 04:15) Medications Given in ED Current Medications Medications Dose Ordered Sig/Winifred Route Start Time Stop Time Status Last Admin Dose Admin Diphenhydramine HCl 25 mg ONCE ONCE PO 06/10/17 04:15 06/10/17 04:16 DC 06/10/17 04:10 25 MG Vital Signs/I&O Vital Sign - Last 12Hours 06/10/17 03:42 Temp 97.0 Pulse 76 Resp 18 B/P (MAP) 199/97 (131) Pulse Ox 95 Capillary Refill : Less Than 3 Seconds Blood Pressure Mean: 131 Progress Note : Progress Note Seen and evaluated. UA ordered and completed. Benadryl 25 mg by mouth given. Due to complaint of as well as the patient having been on antibiotics for the last 2 weeks, likely that she has used vaginitis. We talked about evaluating . Exam for treating subjectively. She would prefer to just treat. I'm okay with this given that her story is consistent with yeast infection. Diflucan 150 mg by mouth. Urine culture results from 4 days ago evaluated. The 3 days of Omnicef that she has been on will be effective enough for treatment given her findings and current UA results. Discharged home with return precautions. Patient verbalize understanding instructions and agreement with plan. Departure Impression Impression: Primary Impression: Yeast vaginitis Disposition: 01 HOME, SELF-CARE Condition: Improved Departure-Patient Inst. Decision time for Depature: 04:45 Referrals: MARIO PAUL MD (PCP/Family) Primary Care Physician Patient Instructions: Vaginal Yeast Infection (DC) Add. Discharge Instructions: All discharge instructions reviewed with patient and/or family. Voiced understanding. Stop antibiotics. Drink plenty of fluids. Get some rest. Follow-up with your doctor this week for recheck and further evaluation. Return for worsening, fever, vomiting, weakness, breathing problems or other concerns as needed. MIRACLE BURRIS MD Jun 10, 2017 04:40
[2017-06-10] MEDS ORDERED: FLUCONAZOLE 150 MG TABLET (ED ONLY) PO ONE (04:45)
[2017-06-10 04:55] VITALS: BP 199/97
== END 2017-06-10 04:56 | disposition home or self-care (01) ==
LOC: EDUNIT# 03:33 → ER 03:36
DX: B37.3 Candidiasis of vulva and vagina (principal); F32.9 Major depressive disorder, single episode, unspecified; E03.9 Hypothyroidism, unspecified; E11.9 Type 2 diabetes mellitus without complications; M85.80 Other specified disorders of bone density and structure, unspecified site; E78.00 Pure hypercholesterolemia, unspecified; I10 Essential (primary) hypertension; Z90.710 Acquired absence of both cervix and uterus; Z90.89 Acquired absence of other organs; Z90.49 Acquired absence of other specified parts of digestive tract; Z87.891 Personal history of nicotine dependence; Z79.82 Long term (current) use of aspirin; Z79.84 Long term (current) use of oral hypoglycemic drugs; Z88.2 Allergy status to sulfonamides; Z88.0 Allergy status to penicillin; Z88.5 Allergy status to narcotic agent
CPT/HCPCS: 81000; 99283

== ENCOUNTER → 2018-01-30 | Outpatient (CLI) | payer MEDICARE, OTHER ==
[~2018-01-30] MED LIST changes: -LABE100T2 PO; +LABE100T6 PO; +METF-397 PO; -METF500T4 PO
--- NOTE | 2018-01-30 19:38 | Diagnostic Imaging Report ---
INDICATION: Routine screening. Comparison is made with prior mammograms from 01/29/2017 and 01/26/2015. 2-D and 3-D bilateral screening mammography was performed with computer-aided detection (CAD) system. FINDINGS: Scattered fibroglandular densities are identified bilaterally. Multiple peripherally calcified oil cysts in the right breast appear stable. A benign-appearing nodular density in the lateral portion of the left breast is stable. No new mass or malignant-appearing microcalcifications are seen. The axillae are unremarkable. IMPRESSION: No mammographic features suspicious for malignancy are identified. ACR BI-RADS Category 2: Benign findings. Result letter will be mailed to the patient. Note: At least 10% of breast cancer is not imaged by mammography. Dictated by: Dictated on workstation # [id number]
== END ==
LOC: RAD 09:40
PROVIDERS: ATTEND Nurse Practitioner Family
DX: Z12.31 Encounter for screening mammogram for malignant neoplasm of breast (principal)
CPT/HCPCS: 77067

== ENCOUNTER 2018-02-20 09:16 | Emergency (ER) | payer MEDICARE, OTHER ==
[~2018-02-20] VITALS: Ht 160 cm; Wt 86.2 kg
[2018-02-20] MEDS ORDERED: hydrALAZINE (APRESOLINE) 25 MG TAB PO ONE (10:30)
--- NOTE | 2018-02-20 10:38 | ED Fall/Injury ---
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 She apparently had just gotten out of the shower and was drying off and she lost her balance and fell backwards. She hit the mid to lower thoracic spine on the tub edge. Denies hitting her head or loss consciousness. Denies other injury. Occurred: just prior to arrival (approximately one hour ago) Severity: moderate Injuries/Pain Location: back Context: lost balance Loss of Consciousness: no loss of consciousness Modifying Factors: Improves With Immobilization; Worse With Movement Associated Symptoms (Fall): No Abdominal Pain, No Chest Pain, No Confusion, No Headache; Muscle Spasms; No Nausea/Vomiting, No Neck Pain, No Shortness of Air Allergies and Home Medications Allergies Coded Allergies: Sulfa (Sulfonamide Antibiotics) (Verified Allergy, Unknown, 03/05/08) codeine (Verified Allergy, Unknown, 03/05/08) meperidine (Verified Allergy, Unknown, 03/05/08) morphine (Verified Allergy, Unknown, 03/05/08) penicillin G (Verified Allergy, Unknown, 03/05/08) Home Medications Aspirin 81 Mg Tablet.dr, 81 MG PO Q48H, (Reported) Calcium Carbonate/Vitamin D3 1 Each Tablet, 1 TAB PO BID, (Reported) Cefdinir 300 Mg Capsule, 300 MG PO twice a day Prescribed by: ABRAHAN REINOSO on 06/06/17 1708 Labetalol HCl 100 Mg Tablet, 100 MG PO BID, (Reported) Levothyroxine Sodium 75 Mcg Tablet, 75 MCG PO DAILY, (Reported) Lovastatin 10 Mg Tablet, 10 MG PO HS, (Reported) Metformin HCl 500 Mg Tablet, 500 MG PO BID HOLD X 1 WEEK Prescribed by: MARIO PAUL on 05/09/16 0844 Multivitamin with Minerals 1 Each Tablet, 1 TAB PO DAILY, (Reported) Olmesartan Medoxomil 40 Mg Tablet, 40 MG PO DAILY, (Reported) [place] 3 Polyunsat Fatty Acids 1,000 Mg Cap, 2,000 MG PO BID, (Reported) TAKES 2 (1000MG) CAPSULES Patient Home Medication List Home Medication List Reviewed: Yes Review of Systems Review of Systems Constitutional: see HPI; No chills (t), No fever Eyes: No Symptoms Reported Ears, Nose, Mouth, Throat: no symptoms reported Respiratory: No cough, No short of breath Cardiovascular: No chest pain, No edema Gastrointestinal: No abdominal pain, No nausea, No vomiting Genitourinary: no symptoms reported Musculoskeletal: see HPI, back pain; No muscle pain; muscle stiffness Skin: no symptoms reported Past Mqvpxmr-Fojwrt-Dobxuu Hx Past Med/Social Hx: Reviewed Nursing Past Med/Soc Hx Patient Social History Alcohol Use: Denies Use Number of Drinks Today: Alcohol Beverage of Choice: Wine Recreational Drug Use: No Smoking Status: Never a Smoker Former Smoker, Quit: Apr 08, 1981 2nd Hand Smoke Exposure: No Recent Foreign Travel: No Contact w/Someone Who Travel: No Recent Infectious Disease Expo: No Recent Hopitalizations: No Immunizations Up To Date Tetanus Booster (TDap): More than 5yrs Date of Pneumonia Vaccine: Apr 08, 2012 Date of Influenza Vaccine: Jan 21, 2016 Seasonal Allergies Seasonal Allergies: No Past Medical History Surgeries: Yes (LEFT RIB LYPOMA) Adenoidectomy, Appendectomy, Gallbladder, Hysterectomy, Orthopedic, Tonsillectomy Respiratory: No Cardiac: Yes (bradycardia) Heart Murmur, High Cholesterol, Hypertension Neurological: No Reproductive Disorders: No CH[employer] History: Hysterectomy Genitourinary: No Gastrointestinal: No Musculoskeletal: Yes Rheumatoid Arthritis Endocrine: Yes Hypothyroidsim, Diabetes, Non-Insulin dep HEENT: No Cancer: No Psychosocial: Yes Depression Integumentary: No Blood Disorders: Yes (OSTEOPENIA) Adverse Reaction/Blood Tranf: No Family Medical History Reviewed Nursing Family Hx Cardiovascular disease 19 MOTHER, Onset:50's - 60 G8 BROTHER, Onset:30's - 40 G8 BROTHER, Onset:40's - 50 G8 BROTHER, Onset:30's - 40 Colon cancer 19 FATHER Diabetes mellitus 19 FATHER G8 SISTER, Onset:40's - 50 G8 SISTER G8 BROTHER Myocardial infarction G8 SISTER G8 SISTER No Pertinent Family Hx Physical Exam Vital Signs Vital Signs - First Documented 02/20/18 09:20 Temp 97.2 Pulse 72 Resp 18 B/P (MAP) 201/128 (152) Pulse Ox 94 O2 Delivery Room Air Capillary Refill : Less Than 3 Seconds Height, Weight, BMI Height: 5'3.00" Weight: 190lbs. 0oz. 86.886432dr; 35.9 BMI Method:Stated General Appearance: WD/WN, no apparent distress HEENT: PERRL/EOMI, pharynx normal Neck: full range of motion, supple Cardiovascular: regular rate, rhythm, no murmur Respiratory: lungs clear, normal breath sounds Gastrointestinal: non tender, soft Back: No muscle spasm; vertebral tenderness (T8 to T10) Extremities: non-tender, normal inspection Neurologic/Psychiatric: alert, oriented x 3 Skin: normal color, warm/dry Alivia Coma Score Best Eye Response: (4) Open Spontaneously Best Verbal Response: (5) Oriented Best Motor Response: (6) Obeys Commands Progress/Results/Core Measures Results/Orders My Orders Orders - MIRACLE BURRIS MD Hydralazine Tablet (Apresoline Tablet) (02/20/18 10:30) Ct Thoracic Spine Wo (02/20/18 10:17) Medications Given in ED Current Medications Medications Dose Ordered Sig/Winifred Route Start Time Stop Time Status Last Admin Dose Admin Hydralazine HCl 25 mg ONCE ONCE PO 02/20/18 10:30 02/20/18 10:31 DC 02/20/18 10:45 25 MG Vital Signs/I&O 02/20/18 09:20 Temp 97.2 Pulse 72 Resp 18 B/P (MAP) 201/128 (152) Pulse Ox 94 O2 Delivery Room Air Blood Pressure Mean: 152 Progress Progress Note : Progress Note Seen and evaluated. Hydralazine 25 mg by mouth for hypertension. She has known hypertension and was off her meds for 24 hours but now has restarted them. Does have mild headache that she complains of sinus congestion and has had that for a while. We did discuss options of CT and she does not believe that she had her head or hurt herself there. She previously was on aspirin but is off of that currently he could she's can have a toenail removed. Main concern is the back pain. CT thoracic spine ordered. Monitor patient. 1118: No acute findings on CT. Discharged home with return precautions. Patient verbalize understanding instructions and agreement with plan. Diagnostic Imaging Diagonstic Imaging: CT Plain Films/CT/US/NM/MRI: other Comments NAME: VITO LESTER [facility] REC#: [id number] PT STATUS: REG ER : [id number] PHYSICIAN: MIRACLE BURRIS MD ADMIT DATE: 02/20/18/ER Signed Date of Exam: 02/20/18 CT THORACIC SPINE WO PROCEDURE: CT thoracic spine without contrast. TECHNIQUE: Multiple axial computerized tomography images were obtained from the base of the thoracic spine to the vertex without intravenous contrast. INDICATION: Back pain after falling in the shower. FINDINGS: The vertebral body height and alignment appear normal. There are no compression fractures. The posterior elements are intact. There is mild spondylosis of the thoracic spine with small osteophytes forming at multiple levels. IMPRESSION: Spondylosis of the thoracic spine. No fracture or acute abnormality is seen. Dictated by: Dictated on workstation # [id number] Dict: 02/20/18 1046 Trans: 02/20/18 1102 Interpreted by: MIRACLE EWING MD Electronically signed by: MIRACLE EWING MD 02/20/18 1102 Departure Impression Primary Impression: Contusion, back Qualified Codes: S20.229A - Contusion of unspecified back wall of thorax, initial encounter Additional Impression: Uncontrolled hypertension Disposition: 01 HOME, SELF-CARE Condition: Stable Departure-Patient Inst. Referrals: MARIO PAUL MD (PCP/Family) Primary Care Physician Patient Instructions: Contusion (DC) Add. Discharge Instructions: All discharge instructions reviewed with patient and/or family. Voiced understanding. You may take Tylenol/acetaminophen 1000 mg every 8 hours as needed for pain. Take other medications as previously prescribed. Follow-up with your DrKenisha in a few days for recheck. Return for worse pain, fever, vomiting, weakness, breathing problems or other concerns as needed. Copy Copies To 1: MARIO PAUL MD, TIMOTHY D MD Feb 20, 2018 10:38
--- NOTE | 2018-02-20 10:49 | Diagnostic Imaging Report ---
PROCEDURE: CT thoracic spine without contrast. TECHNIQUE: Multiple axial computerized tomography images were obtained from the base of the thoracic spine to the vertex without intravenous contrast. INDICATION: Back pain after falling in the shower. FINDINGS: The vertebral body height and alignment appear normal. There are no compression fractures. The posterior elements are intact. There is mild spondylosis of the thoracic spine with small osteophytes forming at multiple levels. IMPRESSION: Spondylosis of the thoracic spine. No fracture or acute abnormality is seen. Dictated by: Dictated on workstation # [id number]
[2018-02-20 11:25] VITALS: BP 171/109
== END 2018-02-20 11:27 | disposition home or self-care (01) ==
LOC: EDUNIT# 09:16 → ER 09:19
DX: S20.229A Contusion of unspecified back wall of thorax, initial encounter (principal); I10 Essential (primary) hypertension; E78.00 Pure hypercholesterolemia, unspecified; M06.9 Rheumatoid arthritis, unspecified; F32.9 Major depressive disorder, single episode, unspecified; E11.9 Type 2 diabetes mellitus without complications; R40.2142 Coma scale, eyes open, spontaneous, at arrival to emergency department; R40.2252 Coma scale, best verbal response, oriented, at arrival to emergency department; R40.2362 Coma scale, best motor response, obeys commands, at arrival to emergency department; E03.9 Hypothyroidism, unspecified; Z87.891 Personal history of nicotine dependence; Z90.89 Acquired absence of other organs; Z90.710 Acquired absence of both cervix and uterus; Z82.49 Family history of ischemic heart disease and other diseases of the circulatory system; Z80.0 Family history of malignant neoplasm of digestive organs; Z88.2 Allergy status to sulfonamides; Z88.5 Allergy status to narcotic agent; Z88.8 Allergy status to other drugs, medicaments and biological substances; Z88.0 Allergy status to penicillin; Z79.82 Long term (current) use of aspirin; Z79.84 Long term (current) use of oral hypoglycemic drugs; W01.198A Fall on same level from slipping, tripping and stumbling with subsequent striking against other object, initial encounter; Y92.002 Bathroom of unspecified non-institutional (private) residence as the place of occurrence of the external cause
CPT/HCPCS: 72128

== ENCOUNTER 2018-05-10 15:48 | Emergency (ER) | payer MEDICARE, OTHER ==
[~2018-05-10] VITALS: Ht 154.9 cm; Wt 81.2 kg
--- NOTE | 2018-05-10 16:12 | ED GI ---
General Chief Complaint: Abdominal/GI Problems Stated Complaint: BODY ACHES/VOMITING Source of Information: Patient Exam Limitations: No Limitations History of Present Illness Date Seen by Provider: May 10, 2018 Time Seen by Provider: 16:10 Initial Comments To ER with reports of generalized body aches stating "even my toenails hurt", nausea and vomiting. Symptoms began last night when she suspected herself to have a urinary tract infection based on urinary frequency and foul-smelling urine. She started taking Azo otio-jkr-tydfsjd and symptoms of worsening since then. No fevers or chills. She did have diarrhea last week but nothing since then. Has been drinking about one 12 ounce bottle of water every 30 minutes. Timing/Duration: 12-24 Hours Severity/Quality: Moderate Location: Other (achy all over) Associated Symptoms: No Back Pain, No Chest Pain, No Fever/Chills; Nausea/ Vomiting Allergies and Home Medications Allergies Coded Allergies: Sulfa (Sulfonamide Antibiotics) (Verified Allergy, Unknown, 03/05/08) codeine (Verified Allergy, Unknown, 03/05/08) meperidine (Verified Allergy, Unknown, 03/05/08) morphine (Verified Allergy, Unknown, 03/05/08) penicillin G (Verified Allergy, Unknown, 03/05/08) Home Medications Aspirin 81 Mg Tablet.dr, 81 MG PO Q48H, (Reported) Calcium Carbonate/Vitamin D3 1 Each Tablet, 1 TAB PO BID, (Reported) Cefdinir 300 Mg Capsule, 300 MG PO twice a day Prescribed by: ABRAHAN REINOSO on 06/06/17 1708 Labetalol HCl 100 Mg Tablet, 100 MG PO BID, (Reported) Levothyroxine Sodium 75 Mcg Tablet, 75 MCG PO DAILY, (Reported) Lovastatin 10 Mg Tablet, 10 MG PO HS, (Reported) Metformin HCl 500 Mg Tablet, 500 MG PO BID HOLD X 1 WEEK Prescribed by: MARIO PAUL on 05/09/16 0844 Multivitamin with Minerals 1 Each Tablet, 1 TAB PO DAILY, (Reported) Olmesartan Medoxomil 40 Mg Tablet, 40 MG PO DAILY, (Reported) [place] 3 Polyunsat Fatty Acids 1,000 Mg Cap, 2,000 MG PO BID, (Reported) TAKES 2 (1000MG) CAPSULES Patient Home Medication List Home Medication List Reviewed: Yes Review of Systems Review of Systems Constitutional: see HPI; No chills, No fever EENTM: No Symptoms Reported Respiratory: No Symptoms Reported Cardiovascular: No Symptoms Reported Gastrointestinal: See HPI; Denies Abdominal Pain, Denies Diarrhea; Nausea, Vomiting Genitourinary: See HPI, Frequency Musculoskeletal: no symptoms reported Skin: no symptoms reported Psychiatric/Neurological: No Symptoms Reported Endocrine: No Symptoms Reported Hematologic/Lymphatic: No Symptoms Reported Past Obbhkhk-Cjilbb-Rbhtua Hx Patient Social History Alcohol Use: Denies Use Number of Drinks Today: Alcohol Beverage of Choice: Wine Recreational Drug Use: No Former Smoker, Quit: Apr 08, 1981 2nd Hand Smoke Exposure: No Recent Foreign Travel: No Contact w/Someone Who Travel: No Recent Hopitalizations: No Physical Abuse: No Sexual Abuse: No Immunizations Up To Date Tetanus Booster (TDap): More than 5yrs Date of Pneumonia Vaccine: Apr 08, 2012 Date of Influenza Vaccine: Jan 21, 2016 Seasonal Allergies Seasonal Allergies: No Past Medical History Surgeries: Yes (LEFT RIB LYPOMA) Adenoidectomy, Appendectomy, Gallbladder, Hysterectomy, Orthopedic, Tonsillectomy Respiratory: No Cardiac: Yes (bradycardia) Heart Murmur, High Cholesterol, Hypertension Neurological: No Reproductive Disorders: No 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 Genitourinary: No Gastrointestinal: No Musculoskeletal: Yes Rheumatoid Arthritis Endocrine: Yes Hypothyroidsim, Diabetes, Non-Insulin dep HEENT: No Cancer: No Psychosocial: Yes Depression Integumentary: No Blood Disorders: Yes (OSTEOPENIA) Adverse Reaction/Blood Tranf: No Family Medical History Cardiovascular disease 19 MOTHER, Onset:50's - 60 G8 BROTHER, Onset:30's - 40 G8 BROTHER, Onset:40's - 50 G8 BROTHER, Onset:30's - 40 Colon cancer 19 FATHER Diabetes mellitus 19 FATHER G8 SISTER, Onset:40's - 50 G8 SISTER G8 BROTHER Myocardial infarction G8 SISTER G8 SISTER No Pertinent Family Hx Physical Exam Vital Signs Vital Signs - First Documented 05/10/18 15:54 Temp 98.5 Pulse 79 Resp 14 B/P (MAP) 172/96 (121) Pulse Ox 94 O2 Delivery Room Air Capillary Refill : Height/Weight/BMI Height: 5'3.00" Weight: 190lbs. 0oz. 86.716276qn; 35.9 BMI Method:Stated General Appearance: WD/WN, no apparent distress HEENT: PERRL/EOMI, normal ENT inspection Neck: non-tender, full range of motion Respiratory: normal breath sounds, no respiratory distress, no accessory muscle use Cardiovascular: regular rate, rhythm, no murmur Gastrointestinal: normal bowel sounds, non tender, soft Extremities: normal range of motion, non-tender Neurologic/Psychiatric: alert, normal mood/affect, oriented x 3 Skin: normal color, warm/dry Progress/Results/Core Measures Results/Orders Lab Results Laboratory Tests Test 05/10/18 16:05 05/10/18 16:20 Range/Units White Blood Count 5.7 4.3-11.0 10^3/uL Red Blood Count 4.59 4.35-5.85 10^6/uL Hemoglobin 13.8 11.5-16.0 G/DL Hematocrit 42 35-52 % Mean Corpuscular Volume 91 80-99 FL Mean Corpuscular Hemoglobin 30 25-34 PG Mean Corpuscular Hemoglobin Concent 33 32-36 G/DL Red Cell Distribution Width 13.2 10.0-14.5 % Platelet Count 204 130-400 10^3/uL Mean Platelet Volume 9.6 7.4-10.4 FL Neutrophils (%) (Auto) 80 H 42-75 % Lymphocytes (%) (Auto) 13 12-44 % Monocytes (%) (Auto) 5 0-12 % Eosinophils (%) (Auto) 2 0-10 % Basophils (%) (Auto) 0 0-10 % Neutrophils # (Auto) 4.5 1.8-7.8 X 10^3 Lymphocytes # (Auto) 0.7 L 1.0-4.0 X 10^3 Monocytes # (Auto) 0.3 0.0-1.0 X 10^3 Eosinophils # (Auto) 0.1 0.0-0.3 10^3/uL Basophils # (Auto) 0.0 0.0-0.1 10^3/uL Sodium Level 138 135-145 MMOL/L Potassium Level 4.0 3.6-5.0 MMOL/L Chloride Level 105 98-107 MMOL/L Carbon Dioxide Level 22 21-32 MMOL/L Anion Gap 11 5-14 MMOL/L Blood Urea Nitrogen 16 7-18 MG/DL Creatinine 0.82 0.60-1.30 MG/DL Estimat Glomerular Filtration Rate > 60 BUN/Creatinine Ratio 20 Glucose Level 117 H 70-105 MG/DL Calcium Level 9.0 8.5-10.1 MG/DL Corrected Calcium 9.0 8.5-10.1 MG/DL Total Bilirubin 0.6 0.1-1.0 MG/DL Aspartate Amino Transf (AST/SGOT) 26 5-34 U/L Alanine Aminotransferase (ALT/SGPT) 19 0-55 U/L Alkaline Phosphatase 60 40-136 U/L Total Protein 6.5 6.4-8.2 GM/DL Albumin 4.0 3.2-4.5 GM/DL Lipase 25 8-78 U/L Urine Color ORANGE Urine Clarity CLEAR Urine pH 7 5-9 Urine Specific [place] 1.005 L 1.016-1.022 Urine Protein NEGATIVE NEGATIVE Urine Glucose (UA) NEGATIVE NEGATIVE Urine Ketones NEGATIVE NEGATIVE Urine Nitrite POSITIVE H NEGATIVE Urine Bilirubin 3+ H NEGATIVE Urine Urobilinogen 8 H NORMAL MG/DL Urine Leukocyte Esterase 2+ H NEGATIVE Urine RBC (Auto) 1+ H NEGATIVE Urine RBC RARE /HPF Urine WBC 2-5 /HPF Urine Squamous Epithelial Cells 0-2 /HPF Urine Crystals NONE /LPF Urine Bacteria TRACE /HPF Urine Casts NONE /LPF Urine Mucus NEGATIVE /LPF Urine Culture Indicated YES My Orders Orders - SIENNA COX APRN Cbc With Automated Diff (05/10/18 16:03) Lipase (05/10/18 16:03) Ua Culture If Indicated (05/10/18 16:03) Comprehensive Metabolic Panel (05/10/18 16:03) Iv Heplock-Insert (Order) (05/10/18 16:03) Ondansetron Injection (Zofran Injectio (05/10/18 16:15) Ketorolac Injection (Toradol Injection) (05/10/18 16:15) Urine Culture (05/10/18 16:20) Rocephin 1 Gm Iv (1 X Dose) (05/10/18 16:45) Medications Given in ED Current Medications Medications Dose Ordered Sig/Winifred Route Start Time Stop Time Status Last Admin Dose Admin Ketorolac Tromethamine 30 mg ONCE ONCE IVP 05/10/18 16:15 05/10/18 16:16 DC 05/10/18 16:18 30 MG Ondansetron HCl 8 mg ONCE ONCE IVP 05/10/18 16:15 05/10/18 16:16 DC 05/10/18 16:17 8 MG Vital Signs/I&O 05/10/18 15:54 Temp 98.5 Pulse 79 Resp 14 B/P (MAP) 172/96 (121) Pulse Ox 94 O2 Delivery Room Air Departure Impression Primary Impression: Urinary tract infection Qualified Codes: N30.00 - Acute cystitis without hematuria Additional Impression: Nausea and vomiting Qualified Codes: R11.2 - Nausea with vomiting, unspecified Disposition: HOME, SELF-CARE Condition: Stable Departure-Patient Inst. Decision time for Depature: 16:42 Referrals: MARIO PAUL MD (PCP/Family) Primary Care Physician Patient Instructions: Nausea and Vomiting, Adult Add. Discharge Instructions: 1. Antibiotics as directed 2. Return to ER for any concerns 3. Follow-up with doctor next week All discharge instructions reviewed with patient and/or family. Voiced understanding. Scripts Cefuroxime Axetil (Cefuroxime) 250 Mg Tablet 250 MG PO BID, #6 TAB Prov: SIENNA COX APRN 05/10/18 Ondansetron (Ondansetron Odt) 8 Mg Tab.rapdis 8 MG PO Q6H PRN for NAUSEA/VOMITING-1ST LINE, #10 TAB Prov: SIENNA COX APRN 05/10/18 SIENNA COX APRN May 10, 2018 16:12
[2018-05-10 16:13] LABS: BASOPHILS % (AUTO) 0 % (0-10); EOSINOPHILS # (AUTO) 0.1 10^3/uL (0.0-0.3); EOSINOPHILS % (AUTO) 2 % (0-10); HEMATOCRIT 42 % (35-52); HEMOGLOBIN 13.8 G/DL (11.5-16.0); LYMPHOCYTES # (AUTO) 0.7 X 10^3 (1.0-4.0); LYMPHOCYTES % (AUTO) 13 % (12-44); MEAN CORPUSCULAR HEMOGLOBIN 30 PG (25-34); MEAN CORPUSCULAR HGB CONC 33 G/DL (32-36); MEAN CORPUSCULAR VOLUME 91 FL (80-99); MEAN PLATELET VOLUME 9.6 FL (7.4-10.4); MONOCYTES # (AUTO) 0.3 X 10^3 (0.0-1.0); MONOCYTES % (AUTO) 5 % (0-12); NEUTROPHILS # (AUTO) 4.5 X 10^3 (1.8-7.8); NEUTROPHILS % (AUTO) 80 % (42-75); PLATELET COUNT 204 10^3/uL (130-400); RED CELL DISTRIBUTION WIDTH 13.2 % (10.0-14.5); WHITE BLOOD COUNT 5.7 10^3/uL (4.3-11.0)
[2018-05-10] MEDS ORDERED: ONDANSETRON 4 MG/2 ML (SDV) Z0FRAN IVP ONE (16:15)
[2018-05-10] MEDS ORDERED: KETOROLAC 30 MG/ML VIAL IVP ONE (16:15)
[2018-05-10 16:29] LABS: CLARITY,URINE CLEAR; GLUCOSE, URINE (UA) NEGATIVE (NEGATIVE); KETONES,URINE NEGATIVE (NEGATIVE); LEUKOCYTE ESTERASE ,URINE 2+ (NEGATIVE); NITRITE,URINE POSITIVE (NEGATIVE); PH,URINE 7 (5-9); PROTEIN,URINE NEGATIVE (NEGATIVE); UROBILINOGEN,URINE 8 MG/DL (NORMAL)
[2018-05-10 16:34] LABS: BUN/CREATININE RATIO 20; CARBON DIOXIDE 22 MMOL/L (21-32); CHLORIDE 105 MMOL/L (98-107); CREATININE SERUM 0.82 MG/DL (0.60-1.30); GFR ESTIMATED > 60; GLUCOSE 117 MG/DL (70-105); SODIUM 138 MMOL/L (135-145)
[2018-05-10 16:35] LABS: ALANINE AMINOTRANSFERASE 19 U/L (0-55); ALKALINE PHOSPHATASE 60 U/L (40-136); BILIRUBIN,TOTAL 0.6 MG/DL (0.1-1.0); LIPASE 25 U/L (8-78); TOTAL PROTEIN 6.5 GM/DL (6.4-8.2)
[2018-05-10 16:37] LABS: BACTERIA,URINE TRACE /HPF; BILIRUBIN,URINE 3+ (NEGATIVE); COLOR,URINE ORANGE; RBC,URINE RARE /HPF; SQUAMOUS EPITHELIAL CELL,UR 0-2 /HPF
[2018-05-10] MEDS ORDERED: CEFU250T80 PO (16:43)
[2018-05-10] MEDS ORDERED: ONDA8TAB13 PO (16:43)
[2018-05-10] MEDS ORDERED: cefTRIAXone FOR IV USE 1,000 MG in NS (IVPB) 50 ML IV ONE (16:45)
[2018-05-10] MEDS ORDERED: fentaNYL INJECTION 100 MCG/2 ML AMP IVP ONE (17:00)
[2018-05-10 17:40] VITALS: BP 165/100
[2018-05-13] MEDS ORDERED: DULO60CA6 PO (11:11)
[2018-05-13] MEDS ORDERED: MELA1TAB35 PO (11:11)
[2018-05-13] MEDS ORDERED: LABE100T6 PO (11:11)
[2018-05-13] MEDS ORDERED: MAGN500C15 PO (11:11)
[2018-05-13] MEDS ORDERED: CALC-901 PO (11:11)
[2018-05-13] MEDS ORDERED: TRAM50TA2 PO ×2 (11:11)
[2018-05-13] MEDS ORDERED: TURMERIC PO (11:11)
[2018-05-13] MEDS ORDERED: MELO15TA39 PO (11:11)
[2018-05-13] MEDS ORDERED: [UNRECOGNIZED DRUG - OTHER] PO (11:11)
[2018-05-13] MEDS ORDERED: QUIN40TA14 PO (11:11)
[2018-05-13] MEDS ORDERED: MULT-1021 PO (11:11)
[2018-05-13] MEDS ORDERED: SENN-145 PO (11:12)
[2018-05-14] MEDS ORDERED: DOXA2TAB2 PO (08:58)
[2018-05-14] MEDS ORDERED: ATOR80TA64 PO (08:58)
[2018-05-14] MEDS ORDERED: AMLO10TA7 PO (08:58)
[2018-05-14] MEDS ORDERED: METF-397 PO (08:58)
[2018-05-14] MEDS ORDERED: CLOP75TA28 PO (08:58)
== END 2018-05-10 17:38 | disposition home or self-care (01) ==
LOC: EDUNIT# 15:48 → ER 15:50
DX: N39.0 Urinary tract infection, site not specified (principal); E78.00 Pure hypercholesterolemia, unspecified; I10 Essential (primary) hypertension; E03.9 Hypothyroidism, unspecified; E11.9 Type 2 diabetes mellitus without complications; F32.9 Major depressive disorder, single episode, unspecified; M06.9 Rheumatoid arthritis, unspecified; Z88.5 Allergy status to narcotic agent; Z80.0 Family history of malignant neoplasm of digestive organs; Z88.2 Allergy status to sulfonamides; Z82.49 Family history of ischemic heart disease and other diseases of the circulatory system; Z88.8 Allergy status to other drugs, medicaments and biological substances; Z88.0 Allergy status to penicillin; Z79.82 Long term (current) use of aspirin; Z79.84 Long term (current) use of oral hypoglycemic drugs; Z87.440 Personal history of urinary (tract) infections; Z87.891 Personal history of nicotine dependence; Z90.89 Acquired absence of other organs; Z90.49 Acquired absence of other specified parts of digestive tract; Z90.710 Acquired absence of both cervix and uterus; Z98.890 Other specified postprocedural states
CPT/HCPCS: 36415; 80053; 81000; 83690; 85025; 87088; 99282

== ENCOUNTER 2018-05-11 00:13 | Emergency (ER) | payer MEDICARE, OTHER ==
[~2018-05-11 00:13] MED LIST changes: +CEFU250T80 PO; +ONDA8TAB13 PO
--- NOTE | 2018-05-11 01:30 | NUR ---
came to waiting room, called pt's name three times, pt not in waiting room
[2018-05-13] MEDS ORDERED: MAGN500C15 PO (11:11)
[2018-05-13] MEDS ORDERED: QUIN40TA14 PO (11:11)
[2018-05-13] MEDS ORDERED: MULT-1021 PO (11:11)
[2018-05-13] MEDS ORDERED: MELA1TAB35 PO (11:11)
[2018-05-13] MEDS ORDERED: LABE100T6 PO (11:11)
[2018-05-13] MEDS ORDERED: CALC-901 PO (11:11)
[2018-05-13] MEDS ORDERED: TRAM50TA2 PO ×2 (11:11)
[2018-05-13] MEDS ORDERED: MELO15TA39 PO (11:11)
[2018-05-13] MEDS ORDERED: DULO60CA6 PO (11:11)
[2018-05-13] MEDS ORDERED: TURMERIC PO (11:11)
[2018-05-13] MEDS ORDERED: [UNRECOGNIZED DRUG - OTHER] PO (11:11)
[2018-05-13] MEDS ORDERED: SENN-145 PO (11:12)
[2018-05-14] MEDS ORDERED: CLOP75TA28 PO (08:58)
[2018-05-14] MEDS ORDERED: ATOR80TA64 PO (08:58)
[2018-05-14] MEDS ORDERED: DOXA2TAB2 PO (08:58)
[2018-05-14] MEDS ORDERED: METF-397 PO (08:58)
[2018-05-14] MEDS ORDERED: AMLO10TA7 PO (08:58)
== END 2018-05-11 01:30 | disposition left against medical advice (07) ==
LOC: EDUNIT# 00:13 → ER 00:14
DX: R52 Pain, unspecified (principal); R11.0 Nausea

== ENCOUNTER 2018-05-12 15:17 | Day surgery (SDC) | payer MEDICARE, OTHER ==
[~2018-05-12] VITALS: Ht 154.9 cm; Wt 86.6 kg
[2018-05-12] MEDS ORDERED: ASPIRIN 81 MG CHEW (CHILDREN'S ASA) PO ONE (15:30)
--- NOTE | 2018-05-12 15:33 | ED Chest Pain ---
General Stated Complaint: CHEST PAIN Source: patient Exam Limitations: no limitations History of Present Illness Date Seen by Provider: May 12, 2018 Time Seen by Provider: 15:25 Initial Comments Here with a variety of complaints including chest pain, not feeling right, weak , dizzy and chest tightness. She has had intermittent symptoms over the last week and has been treated for urinary tract infection. States the chest pain is bandlike. She had episodes of vomiting over the last several days but that has resolved today. It does feel upper abdominal discomfort along the musculature. Feels burning in the chest when she swallows sometimes. Timing/Duration: 4-5 days Severity/Quality: moderate, tightness Location: central Radiation: no radiation Prior CP/Workup: echocardiography ASA po CLINICAL DOCUMENTATION SPECIALIST: No NTG SL CLINICAL DOCUMENTATION SPECIALIST: No Associated Symptoms: No abdominal pain, No back pain; dizziness, nausea/ vomiting, shortness of breath, weakness Allergies and Home Medications Allergies Coded Allergies: Sulfa (Sulfonamide Antibiotics) (Verified Allergy, Unknown, 03/05/08) codeine (Verified Allergy, Unknown, 03/05/08) meperidine (Verified Allergy, Unknown, 03/05/08) morphine (Verified Allergy, Unknown, 03/05/08) penicillin G (Verified Allergy, Unknown, 03/05/08) Home Medications Aspirin 81 Mg Tablet.dr, 81 MG PO Q48H, (Reported) Calcium Carbonate/Vitamin D3 1 Each Tablet, 1 TAB PO BID, (Reported) Cefdinir 300 Mg Capsule, 300 MG PO twice a day Prescribed by: ABRAHAN REINOSO on 06/06/17 1708 Cefuroxime Axetil 250 Mg Tablet, 250 MG PO BID Prescribed by: SIENNA COX on 05/10/18 1643 Labetalol HCl 100 Mg Tablet, 100 MG PO BID, (Reported) Levothyroxine Sodium 75 Mcg Tablet, 75 MCG PO DAILY, (Reported) Lovastatin 10 Mg Tablet, 10 MG PO HS, (Reported) Metformin HCl 500 Mg Tablet, 500 MG PO BID HOLD X 1 WEEK Prescribed by: MARIO BARBOZA on 05/09/16 0844 Multivitamin with Minerals 1 Each Tablet, 1 TAB PO DAILY, (Reported) Olmesartan Medoxomil 40 Mg Tablet, 40 MG PO DAILY, (Reported) [place] 3 Polyunsat Fatty Acids 1,000 Mg Cap, 2,000 MG PO BID, (Reported) TAKES 2 (1000MG) CAPSULES Ondansetron 8 Mg Tab.rapdis, 8 MG PO Q6H PRN for NAUSEA/VOMITING-1ST LINE Prescribed by: SIENNA COX on 05/10/18 1643 Patient Home Medication List Home Medication List Reviewed: Yes Review of Systems Review of Systems Constitutional: see HPI; No chills, No fever Respiratory: See HPI; Denies Shortness of Air Cardiovascular: See HPI, Chest Pain Gastrointestinal: See HPI; Denies Diarrhea Genitourinary: See HPI Musculoskeletal: see HPI, muscle pain Skin: no symptoms reported Psychiatric/Neurological: See HPI, Anxiety, Weakness, Other (dizziness) All Other Systems Reviewed Negative Unless Noted: Yes Past Hpgtflz-Ktffmb-Txjeng Hx Past Med/Social Hx: Reviewed Nursing Past Med/Soc Hx Patient Social History Alcohol Use: Occasionally Uses Alcohol Beverage of Choice: Wine Recreational Drug Use: No Smoking Status: Never a Smoker Former Smoker, Quit: Apr 08, 1981 2nd Hand Smoke Exposure: No Recent Foreign Travel: No Contact w/Someone Who Travel: No Recent Hopitalizations: No Immunizations Up To Date Tetanus Booster (TDap): More than 5yrs Date of Pneumonia Vaccine: Apr 08, 2012 Date of Influenza Vaccine: Jan 21, 2016 Seasonal Allergies Seasonal Allergies: No Past Medical History Surgeries: Yes (LEFT RIB LYPOMA) Adenoidectomy, Appendectomy, Gallbladder, Hysterectomy, Orthopedic, Tonsillectomy Respiratory: No Cardiac: Yes (bradycardia) Heart Murmur, High Cholesterol, Hypertension Neurological: No Reproductive Disorders: No 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 Genitourinary: No Gastrointestinal: No Musculoskeletal: Yes Rheumatoid Arthritis Endocrine: Yes Hypothyroidsim, Diabetes, Non-Insulin dep HEENT: No Cancer: No Psychosocial: Yes Depression Integumentary: No Blood Disorders: Yes (OSTEOPENIA) Adverse Reaction/Blood Tranf: No Family Medical History Reviewed Nursing Family Hx Cardiovascular disease 19 MOTHER, Onset:50's - 60 G8 BROTHER, Onset:30's - 40 G8 BROTHER, Onset:40's - 50 G8 BROTHER, Onset:30's - 40 Colon cancer 19 FATHER Diabetes mellitus 19 FATHER G8 SISTER, Onset:40's - 50 G8 SISTER G8 BROTHER Myocardial infarction G8 SISTER G8 SISTER No Pertinent Family Hx Physical Exam Vital Signs Vital Signs - First Documented 05/12/18 15:20 Temp 97.2 Pulse 68 Resp 13 B/P (MAP) 200/105 (136) Pulse Ox 98 O2 Delivery Room Air Capillary Refill : Height, Weight, BMI Height: 5'1.00" Weight: 179lbs. 0oz. 81.172865oy; 35.9 BMI Method:Stated General Appearance: No Apparent Distress, WD/WN HEENT: PERRL/EOMI, Pharynx Normal Neck: Non Tender, Supple Respiratory: Lungs Clear, Normal Breath Sounds Cardiovascular: Regular Rate, Rhythm, No Murmur Gastrointestinal: Non Tender, Soft Extremity: Normal Range of Motion, Non Tender Neurologic/Psychiatric: Alert, Oriented x3, No Motor/Sensory Deficits, Normal Mood/Affect, cloth beamer II-XII Norm as Tested; No Abnormal Gait Skin: Normal Color, Warm/Dry Progress/Results/Core Measures Results/Orders Lab Results Laboratory Tests Test 05/12/18 15:39 05/12/18 18:46 Range/Units White Blood Count 5.7 4.3-11.0 10^3/uL Red Blood Count 4.63 4.35-5.85 10^6/uL Hemoglobin 13.9 11.5-16.0 G/DL Hematocrit 43 35-52 % Mean Corpuscular Volume 92 80-99 FL Mean Corpuscular Hemoglobin 30 25-34 PG Mean Corpuscular Hemoglobin Concent 33 32-36 G/DL Red Cell Distribution Width 13.3 10.0-14.5 % Platelet Count 237 130-400 10^3/uL Mean Platelet Volume 9.9 7.4-10.4 FL Neutrophils (%) (Auto) 55 42-75 % Lymphocytes (%) (Auto) 32 12-44 % Monocytes (%) (Auto) 10 0-12 % Eosinophils (%) (Auto) 3 0-10 % Basophils (%) (Auto) 0 0-10 % Neutrophils # (Auto) 3.1 1.8-7.8 X 10^3 Lymphocytes # (Auto) 1.8 1.0-4.0 X 10^3 Monocytes # (Auto) 0.6 0.0-1.0 X 10^3 Eosinophils # (Auto) 0.2 0.0-0.3 10^3/uL Basophils # (Auto) 0.0 0.0-0.1 10^3/uL Prothrombin Time 12.8 12.2-14.7 SEC INR Comment 1.0 0.8-1.4 Activated Partial Thromboplast Time 34 24-35 SEC D-Dimer 0.77 H 0.00-0.49 UG/ML Sodium Level 141 135-145 MMOL/L Potassium Level 4.8 3.6-5.0 MMOL/L Chloride Level 105 98-107 MMOL/L Carbon Dioxide Level 25 21-32 MMOL/L Anion Gap 11 5-14 MMOL/L Blood Urea Nitrogen 14 7-18 MG/DL Creatinine 0.95 0.60-1.30 MG/DL Estimat Glomerular Filtration Rate 58 BUN/Creatinine Ratio 15 Glucose Level 104 70-105 MG/DL Calcium Level 9.3 8.5-10.1 MG/DL Corrected Calcium 9.3 8.5-10.1 MG/DL Magnesium Level 2.0 1.8-2.4 MG/DL Total Bilirubin 0.2 0.1-1.0 MG/DL Aspartate Amino Transf (AST/SGOT) 34 5-34 U/L Alanine Aminotransferase (ALT/SGPT) 25 0-55 U/L Alkaline Phosphatase 65 40-136 U/L Myoglobin 63.3 71.6 10.0-92.0 NG/ML Troponin I < 0.028 < 0.028 <0.028 NG/ML Total Protein 6.6 6.4-8.2 GM/DL Albumin 4.0 3.2-4.5 GM/DL Lipase 22 8-78 U/L My Orders Orders - MIRACLE BURRIS MD Cbc With Automated Diff (05/12/18 15:20) Magnesium (05/12/18 15:20) Chest 1 View, Ap/Pa Only (05/12/18 15:20) Ekg Tracing (05/12/18 15:20) Cardiac Profile 1 (05/12/18 15:20) Comprehensive Metabolic Panel (05/12/18 15:20) Myoglobin Serum (05/12/18 15:20) Protime With Inr (05/12/18 15:20) Partial Thromboplastin Time (05/12/18 15:20) O2 (05/12/18 15:20) Monitor-Rhythm Ecg Trace Only (05/12/18 15:20) Lipid Panel (05/13/18 06:00) Aspirin Chewable Tablet (Baby Aspirin Ch (05/12/18 15:30) Saline Lock/Iv-Start (05/12/18 15:20) Nitroglycerin 0.4 Mg Btl 25's (Nitrostat (05/12/18 15:45) Lipase (05/12/18 15:31) Fibrin Degradation Products (05/12/18 15:31) Fentanyl Injection (Sublimaze Injection (05/12/18 16:01) Ct Angio Head/Neck (05/12/18 16:35) Saline Lock/Iv-Start (05/12/18 16:35) Ns Iv 1000 Ml (Sodium Chloride 0.9%) (05/12/18 16:35) Iohexol Injection (Omnipaque 350 Mg/Ml 1 (05/12/18 17:00) Contrast Received (Contrast Received) (05/12/18 17:00) Ns (Ivpb) (Sodium Chloride 0.9% Ivpb Bag (05/12/18 17:00) Ct Chest Wo (05/12/18 17:19) Lidocaine 2% Viscous 15 Ml (Xylocaine Vi (05/12/18 18:45) Antacid Suspension (Mylanta Suspension (05/12/18 18:45) Labetalol Tablet (Normodyne Tablet) (05/12/18 18:45) Quinapril Tablet (Accupril Tablet) (05/12/18 18:45) Troponin I (05/12/18 18:32) Myoglobin Serum (05/12/18 18:32) Ekg Tracing (05/12/18 18:32) Lisinopril Tablet (Zestril Tablet) (05/12/18 19:15) Medications Given in ED Current Medications Medications Dose Ordered Sig/Winifred Route Start Time Stop Time Status Last Admin Dose Admin Al Hydrox/Mg Hydrox/Simethicone 30 ml ONCE ONCE PO 05/12/18 18:45 05/12/18 18:46 DC 05/12/18 19:26 30 ML Aspirin 324 mg ONCE ONCE PO 05/12/18 15:30 05/12/18 15:31 DC 05/12/18 15:43 324 MG Iohexol 75 ml ONCE ONCE IV 05/12/18 17:00 05/12/18 17:01 DC 05/12/18 16:59 85 ML Labetalol HCl 100 mg ONCE ONCE PO 05/12/18 18:45 05/12/18 18:46 DC 05/12/18 19:26 100 MG Lidocaine HCl 15 ml ONCE ONCE PO 05/12/18 18:45 05/12/18 18:46 DC 05/12/18 19:26 15 ML Lisinopril 40 mg ONCE ONCE PO 05/12/18 19:15 05/12/18 19:16 DC 05/12/18 19:26 40 MG Nitroglycerin 0.4 mg UD PRN SL 05/12/18 15:45 05/12/18 18:57 DC 05/12/18 18:15 0.4 MG Sodium Chloride 100 ml ONCE ONCE IV 05/12/18 17:00 05/12/18 17:01 DC 05/12/18 16:59 80 ML Sodium Chloride 1,000 ml @ 0 mls/hr Q0M ONCE IV 05/12/18 16:35 05/12/18 16:36 DC 05/12/18 17:54 1,000 MLS/HR Vital Signs/I&O 05/12/18 15:20 Temp 97.2 Pulse 68 Resp 13 B/P (MAP) 200/105 (136) Pulse Ox 98 O2 Delivery Room Air Progress Progress Note : Progress Note Seen and evaluated. IV, labs, chest x-ray, EKG ordered. Aspirin and nitroglycerin sublingual ordered. This did resolve pain. Pressure is quite high. She is due her blood pressure medicines this evening. CT chest ordered. CT a head and neck ordered. Patient is writing complaints including dizziness. We are trying to evaluate for all causes of her concerns since she' s had several days of vague complaints including dizziness. Patient does have a melena noted on chest x-ray as well resuscitated further evaluation with CT for that. Stroke scale 0. No findings for acute stroke or TPA. Normal saline 1 L bolus. Monitor patient. 1829: We will go ahead and give patient's night medicines of blood pressure and repeat labs and EKG. Consider admission due to persistent hypertension and strong family history of cardiac disease. Monitor patient. 1910: I did discuss the case with Dr. Barboza. Given her significant family history and persistent intermittent chest pain, patient will be admitted for further workup. Cardiology consult to be placed tonight if labs are abnormal or in the morning if remain normal. This was discussed with patient and family who agree with plan. 1934: Repeat labs are unchanged. Admit, observation status. [address] Gutierrez in the morning. Initial ECG Impression Date: May 12, 2018 Initial ECG Impression Time: 15:21 Initial ECG Rate: 69 Initial ECG Rhythm: Normal Sinus Comment Sinus rhythm with left ventricular hypertrophy. Normal axis. No evidence of ST elevation PA. Essentially unchanged but more pronounced left ventricular hypertrophy from 29 January 2015. Interpreted by me. EKG : EKG Time: 18:47 Rate: 56 Rhythm: Normal Sinus Comment Sinus rhythm with LVH, no evidence of ST elevation PA, leftward axis, interpreted by me. Diagnostic Imaging Diagonstic Imaging: Xray Plain Films/CT/US/NM/MRI: chest Comments NAME: VITO LESTER [facility] REC#: [id number] PT STATUS: REG ER : 1950 PHYSICIAN: MIRACLE BURRIS MD ADMIT DATE: 05/12/18/ER Signed Date of Exam: 05/12/18 CHEST 1 VIEW, AP/PA ONLY INDICATION: Chest pain. TECHNIQUE: A frontal chest was obtained at 3:51 PM. COMPARISON: 04/27/2017. FINDINGS: The heart is borderline in size. The aorta is tortuous, especially in its ascending portion. The appearance, however, has not changed compared to the prior study. There is some minimal infiltrate or atelectasis in the right base which was not seen on the prior study. There is no pneumothorax or pleural fluid. The left lung is clear. IMPRESSION: Borderline cardiomegaly with a tortuous aorta. New area of minimal infiltrate or atelectasis in the right base which was not seen on the previous study. No other new finding. Dictated by: Dictated on workstation # [id number] Dict: 05/12/18 1605 Trans: 05/12/181700 Interpreted by: ALEXA CORTEZ MD Electronically signed by: ALEXA CORTEZ MD 05/12/181700 Diagonstic Imaging: CT Plain Films/CT/US/NM/MRI: head, other Comments NAME: VITO LESTER [facility] REC#: [id number] PT STATUS: REG ER : 1950 PHYSICIAN: MIRACLE BURRIS MD ADMIT DATE: 05/12/18/ER Signed Date of Exam: 05/12/18 CT ANGIO HEAD/NECK PROCEDURE: CT angiography of the head and CT angiography of the neck with and without contrast. TECHNIQUE: Contiguous noncontrast images were obtained from the skull base through the vertex. After intravenous contrast administration, helical CT angiography of the neck was performed. Source data was reformatted into multiple MIP projections. Delayed post contrast acquisition was also obtained. INDICATION: Weakness, fall. COMPARISON: None. FINDINGS: The ventricles and cortical sulci are mildly prominent. There are areas of hypoattenuation in the periventricular white matter. No midline shift or significant mass effect is seen. No acute intracranial hemorrhage is seen. There is tortuosity of the internal carotid arteries without high-grade stenosis or occlusion, although the origin of the left common carotid artery is incompletely seen. There is atherosclerosis of the intracranial internal carotid arteries without high-grade stenosis seen. The right vertebral artery is dominant. The vertebral arteries are mildly tortuous. No stenosis or occlusion is seen. The anterior communicating artery is seen. The bilateral anterior cerebral arteries appear normal. The bilateral MCAs appear normal. The left posterior communicating artery is seen. The right is seen as well. The bilateral posterior cerebral arteries are seen. The P1 segments appear small. The superior cerebellar arteries appear normal. The basilar artery is mildly small but patent. No enhancing masses are seen. Perfusion appears subjectively symmetric. No acute osseous abnormality is seen in the calvarium or the cervical spine. There are severe degenerative changes at C5-6 and C6-7. There is biapical pleural scarring. IMPRESSION: 1. Mild atherosclerosis with no acute abnormality seen in the arteries of the head and neck. 2. No acute intracranial hemorrhage. No CT evidence of acute territorial ischemia. 3. Generalized parenchymal volume loss with findings suggestive of chronic microvascular disease. 4. Advanced degenerative changes at C5-6 and C6-7. Dictated by: Dictated on workstation # [id number] Dict: 05/12/181741 Trans: 05/12/181855 Interpreted by: SHAWNA BRAND MD Electronically signed by: SHAWNA BRAND MD 05/12/181855 Diagonstic Imaging: CT Plain Films/CT/US/NM/MRI: chest Comments [facility], [facility]. [place], [place] NAME: VITO LESTER [facility] REC#: [id number] PT STATUS: REG ER : 1950 PHYSICIAN: MIRACLE BURRIS MD ADMIT DATE: 05/12/18/ER Draft Date of Exam:05/12/18 CT CHEST WO PROCEDURE: CT chest without contrast. TECHNIQUE: Multiple contiguous axial images were obtained through the chest without the use of intravenous contrast. INDICATION: Chest pain. There are no prior CT chest examinations available for comparison. FINDINGS: The plain film examination of the chest performed earlier today at 3:51 PM did note cardiomegaly and a tortuous right-sided descending thoracic aorta. Those findings are again evident on this study. The heart is enlarged and there are dense coronary artery calcifications evident. The aortic knob is on the right side and the descending thoracic aorta does extend towards midline before coursing along the right heart border. There is no abnormality of the aorta itself although the aorta is difficult to evaluate due to the absence of intravenous contrast. There is mild fibrosis/scar formation involving each lower lobe. The lungs are otherwise generally clear. There is no evidence for failure, pneumonia or for pleural effusion. There is a small 5 MM pleural-based nodule on the periphery of the right midlung. This is most likely a benign process. There is no mediastinal or hilar adenopathy. The thyroid gland was not well visualized. There is no obvious breast mass. The sections through the upper abdomen show that the gallbladder is surgically absent. There is excretion of the contrast used for the CTA head and neck exam by both kidneys. The bone windows show no sign of a fracture or destructive lesion. IMPRESSION: 1. There is cardiomegaly and coronary artery disease, but there is no sign of an acute cardiopulmonary abnormality. 2. 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 3. There are mild chronic pulmonary changes evident. 4. There has been prior cholecystectomy. 5. These results were discussed with Dr. Burris in the ER. Dictated on workstation # [id number] Dict: 05/12/18 1748 Trans: 05/12/18 1827 [id number] Interpreted by: ALFRED GARCIA MD Electronically signed by: Departure Communication (Admissions) Time/Spoke to Admitting Phy: 19:11 Impression Primary Impression: Chest pain Qualified Codes: R07.9 - Chest pain, unspecified Disposition: ADMITTED INPATIENT Condition: Stable Admissions Decision to Admit Reason: Admit from ER (General) Decision to Admit/Date: May 12, 2018 Time/Decision to Admit Time: 19:11 Departure-Patient Inst. Referrals: MARIO BARBOZA MD (PCP/Family) Primary Care Physician MIRACLE BURRIS MD May 12, 2018 15:33
[2018-05-12 15:43] LABS: BASOPHILS % (AUTO) 0 % (0-10); EOSINOPHILS # (AUTO) 0.2 10^3/uL (0.0-0.3); EOSINOPHILS % (AUTO) 3 % (0-10); HEMATOCRIT 43 % (35-52); HEMOGLOBIN 13.9 G/DL (11.5-16.0); LYMPHOCYTES # (AUTO) 1.8 X 10^3 (1.0-4.0); LYMPHOCYTES % (AUTO) 32 % (12-44); MEAN CORPUSCULAR HEMOGLOBIN 30 PG (25-34); MEAN CORPUSCULAR HGB CONC 33 G/DL (32-36); MEAN CORPUSCULAR VOLUME 92 FL (80-99); MEAN PLATELET VOLUME 9.9 FL (7.4-10.4); MONOCYTES # (AUTO) 0.6 X 10^3 (0.0-1.0); MONOCYTES % (AUTO) 10 % (0-12); NEUTROPHILS # (AUTO) 3.1 X 10^3 (1.8-7.8); NEUTROPHILS % (AUTO) 55 % (42-75); PLATELET COUNT 237 10^3/uL (130-400); RED CELL DISTRIBUTION WIDTH 13.3 % (10.0-14.5); WHITE BLOOD COUNT 5.7 10^3/uL (4.3-11.0)
[2018-05-12] MEDS: NITROGLYCERIN 0.4 MG SL TABS BTL 25'S SL PRN ×3 (15:43→18:15)
[2018-05-12 15:55] LABS: PROTHROMBIN TIME PATIENT 12.8 SEC (12.2-14.7)
[2018-05-12] MEDS ORDERED: fentaNYL INJECTION 100 MCG/2 ML AMP IVP STA (16:01)
[2018-05-12 16:08] LABS: ALANINE AMINOTRANSFERASE 25 U/L (0-55); ALKALINE PHOSPHATASE 65 U/L (40-136); BILIRUBIN,TOTAL 0.2 MG/DL (0.1-1.0); BUN/CREATININE RATIO 15; CALCIUM 9.3 MG/DL (8.5-10.1); CARBON DIOXIDE 25 MMOL/L (21-32); CHLORIDE 105 MMOL/L (98-107); CREATININE SERUM 0.95 MG/DL (0.60-1.30); GFR ESTIMATED 58; GLUCOSE 104 MG/DL (70-105); LIPASE 22 U/L (8-78); POTASSIUM 4.8 MMOL/L (3.6-5.0); SODIUM 141 MMOL/L (135-145); TOTAL PROTEIN 6.6 GM/DL (6.4-8.2)
[2018-05-12 16:14] LABS: MYOGLOBIN SERUM 63.3 NG/ML (10.0-92.0)
--- NOTE | 2018-05-12 16:22 | Diagnostic Imaging Report ---
INDICATION: Chest pain. TECHNIQUE: A frontal chest was obtained at 3:51 PM. COMPARISON: 04/27/2017. FINDINGS: The heart is borderline in size. The aorta is tortuous, especially in its ascending portion. The appearance, however, has not changed compared to the prior study. There is some minimal infiltrate or atelectasis in the right base which was not seen on the prior study. There is no pneumothorax or pleural fluid. The left lung is clear. IMPRESSION: Borderline cardiomegaly with a tortuous aorta. New area of minimal infiltrate or atelectasis in the right base which was not seen on the previous study. No other new finding. Dictated by: Dictated on workstation # [id number]
[2018-05-12] MEDS ORDERED: NS IV 1000 ML 1,000 ML IV ONE (16:35)
[2018-05-12] MEDS ORDERED: IOHEXOL 350 MG/ML 100 ML (OMNIPAQUE 350) VIAL IV ONE (17:00)
[2018-05-12] MEDS ORDERED: NS 100 ML (IVPB) BAG IV ONE (17:00)
[2018-05-12] MEDS ORDERED: RECEIVED CONTRAST (Hold Metformin) IV SCH (17:00)
--- NOTE | 2018-05-12 17:55 | Diagnostic Imaging Report ---
PROCEDURE: CT angiography of the head and CT angiography of the neck with and without contrast. TECHNIQUE: Contiguous noncontrast images were obtained from the skull base through the vertex. After intravenous contrast administration, helical CT angiography of the neck was performed. Source data was reformatted into multiple MIP projections. Delayed post contrast acquisition was also obtained. INDICATION: Weakness, fall. COMPARISON: None. FINDINGS: The ventricles and cortical sulci are mildly prominent. There are areas of hypoattenuation in the periventricular white matter. No midline shift or significant mass effect is seen. No acute intracranial hemorrhage is seen. There is tortuosity of the internal carotid arteries without high-grade stenosis or occlusion, although the origin of the left common carotid artery is incompletely seen. There is atherosclerosis of the intracranial internal carotid arteries without high-grade stenosis seen. The right vertebral artery is dominant. The vertebral arteries are mildly tortuous. No stenosis or occlusion is seen. The anterior communicating artery is seen. The bilateral anterior cerebral arteries appear normal. The bilateral MCAs appear normal. The left posterior communicating artery is seen. The right is seen as well. The bilateral posterior cerebral arteries are seen. The P1 segments appear small. The superior cerebellar arteries appear normal. The basilar artery is mildly small but patent. No enhancing masses are seen. Perfusion appears subjectively symmetric. No acute osseous abnormality is seen in the calvarium or the cervical spine. There are severe degenerative changes at C5-6 and C6-7. There is biapical pleural scarring. IMPRESSION: 1. Mild atherosclerosis with no acute abnormality seen in the arteries of the head and neck. 2. No acute intracranial hemorrhage. No CT evidence of acute territorial ischemia. 3. Generalized parenchymal volume loss with findings suggestive of chronic microvascular disease. 4. Advanced degenerative changes at C5-6 and C6-7. Dictated by: Dictated on workstation # [id number]
--- NOTE | 2018-05-12 18:27 | Diagnostic Imaging Report ---
PROCEDURE: CT chest without contrast. TECHNIQUE: Multiple contiguous axial images were obtained through the chest without the use of intravenous contrast. INDICATION: Chest pain. There are no prior CT chest examinations available for comparison. FINDINGS: The plain film examination of the chest performed earlier today at 3:51 PM did note cardiomegaly and a tortuous right-sided descending thoracic aorta. Those findings are again evident on this study. The heart is enlarged and there are dense coronary artery calcifications evident. The aortic knob is on the right side and the descending thoracic aorta does extend towards midline before coursing along the right heart border. The aorta in this area is prominent and the left subclavian artery does arise from this region of the aorta. 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 There is no abnormality of the aorta itself although the aorta is difficult to evaluate due to the absence of intravenous contrast. There is mild fibrosis/scar formation involving each lower lobe. The lungs are otherwise generally clear. There is no evidence for failure, pneumonia or for pleural effusion. There is a small 5 MM pleural-based nodule on the periphery of the right midlung. This is most likely a benign process. There is no mediastinal or hilar adenopathy. The thyroid gland was not well visualized. There is no obvious breast mass. The sections through the upper abdomen show that the gallbladder is surgically absent. There is excretion of the contrast used for the CTA head and neck exam by both kidneys. The bone windows show no sign of a fracture or destructive lesion. IMPRESSION: 1. There is cardiomegaly and coronary artery disease, but there is no sign of an acute cardiopulmonary abnormality. 2. 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 3. There are mild chronic pulmonary changes evident. 4. There has been prior cholecystectomy. 5. These results were discussed with Dr. Pederson in the ER. Dictated by: Dictated on workstation # [id number]
[2018-05-12] MEDS ORDERED: LIDOCAINE 2% VISCOUS 15 ML UDC PO ONE (18:45)
[2018-05-12] MEDS ORDERED: QUINAPRIL 20 MG (ACCUPRIL) TAB PO ONE (18:45)
[2018-05-12] MEDS ORDERED: ANTACID SUSP 30 ML UDC (MYLANTA) PO ONE (18:45)
[2018-05-12] MEDS ORDERED: LABETALOL 200 MG (NORMODYNE) TAB PO ONE (18:45)
[2018-05-12] MEDS ORDERED: lisINopril 40 MG (PRINIVIL) TABLET PO ONE (19:15)
[2018-05-12 19:25] LABS: MYOGLOBIN SERUM 71.6 NG/ML (10.0-92.0)
[2018-05-12 20:15] VITALS: BP 184/85
--- NOTE | 2018-05-12 20:15 | NUR ---
VITO LESTER admitted to room 406-1, with an admitting diagnosis of CHEST PAIN, on 05/12/18 from ED via , accompanied by ED STAFF MEMBER.VITO LESTER introduced to surroundings, call light, bed controls, phone, TV, temperature control, lights, meal times, smoking policy, visitor policy, side rail policy, bathrooms and showers. Patient Rights given to patient in the handbook. VITO LESTER verbalizes understanding that [facility] is not responsible for the loss or damage to any personal effects or valuables that are kept in the patients posession during their hospitalization. PT PLAN OF CARE DISCUSSED, NO QUESTIONS OR CONCERNS AT THIS TIME.
[2018-05-12 20:30] VITALS: BP 170/84
[2018-05-12 20:45] VITALS: BP 164/83
[2018-05-12 21:00] VITALS: BP 166/81
[2018-05-12] MEDS ORDERED: fentaNYL INJECTION 100 MCG/2 ML AMP IV PRN (21:15)
[2018-05-12] MEDS ORDERED: NITROGLYCERIN 0.4 MG SL TABS BTL 25'S SL PRN (21:15)
[2018-05-12] MEDS ORDERED: CATHETER FLUSH 10 ML SYR IV PRN (21:15)
[2018-05-12] MEDS: NS IV 1000 ML 1,000 ML IV SCH (21:45)
[2018-05-12] MEDS: CATHETER FLUSH 10 ML SYR IV SCH (21:45)
[2018-05-12 22:00] VITALS: BP 175/72
[2018-05-12 23:00] VITALS: BP 161/84
[2018-05-13] VITALS (14 sets, daily range): BP systolic 138–186; BP diastolic 70–99
[2018-05-13 01:14] LABS: BASOPHILS % (AUTO) 0 % (0-10); EOSINOPHILS # (AUTO) 0.3 10^3/uL (0.0-0.3); EOSINOPHILS % (AUTO) 5 % (0-10); HEMATOCRIT 37 % (35-52); HEMOGLOBIN 12.2 G/DL (11.5-16.0); LYMPHOCYTES # (AUTO) 2.1 X 10^3 (1.0-4.0); LYMPHOCYTES % (AUTO) 39 % (12-44); MEAN CORPUSCULAR HEMOGLOBIN 30 PG (25-34); MEAN CORPUSCULAR HGB CONC 33 G/DL (32-36); MEAN CORPUSCULAR VOLUME 92 FL (80-99); MEAN PLATELET VOLUME 9.2 FL (7.4-10.4); MONOCYTES # (AUTO) 0.5 X 10^3 (0.0-1.0); MONOCYTES % (AUTO) 9 % (0-12); NEUTROPHILS # (AUTO) 2.6 X 10^3 (1.8-7.8); NEUTROPHILS % (AUTO) 47 % (42-75); PLATELET COUNT 239 10^3/uL (130-400); RED CELL DISTRIBUTION WIDTH 13.1 % (10.0-14.5); WHITE BLOOD COUNT 5.4 10^3/uL (4.3-11.0)
[2018-05-13 01:34] LABS: ALANINE AMINOTRANSFERASE 20 U/L (0-55); ALBUMIN 3.4 GM/DL (3.2-4.5); ALKALINE PHOSPHATASE 58 U/L (40-136); BILIRUBIN,TOTAL 0.2 MG/DL (0.1-1.0); BUN/CREATININE RATIO 18; CALCIUM 8.5 MG/DL (8.5-10.1); CARBON DIOXIDE 22 MMOL/L (21-32); CHLORIDE 109 MMOL/L (98-107); CHOLESTEROL 119 MG/DL (< 200); CREATININE SERUM 0.84 MG/DL (0.60-1.30); GFR ESTIMATED > 60; GLUCOSE 135 MG/DL (70-105); HDL CHOLESTEROL 43 MG/DL (40-60); POTASSIUM 3.9 MMOL/L (3.6-5.0); SODIUM 143 MMOL/L (135-145); TOTAL PROTEIN 5.5 GM/DL (6.4-8.2); TRIGLYCERIDES 103 MG/DL (<150); VLDL CHOLESTEROL 21 MG/DL (5-40)
[2018-05-13 01:41] LABS: MYOGLOBIN SERUM 60.4 NG/ML (10.0-92.0)
[2018-05-13] MEDS: inSUlin ASPART (NovoLOG) 1 UNIT/0.01 ML (CHARGE PER UNIT) SC SCH ×4 (06:28→20:14)
[2018-05-13] MEDS: CATHETER FLUSH 10 ML SYR IV SCH ×3 (06:28→22:10)
--- NOTE | 2018-05-13 07:44 | NUR ---
PAGED DR YANG REGARDING CONSULT
[2018-05-13] MEDS ORDERED: LABETALOL 200 MG (NORMODYNE) TAB PO SCH (09:00)
[2018-05-13] MEDS ORDERED: ASPIRIN E.C. 81 MG (ECOTRIN) TAB PO SCH (09:00)
--- NOTE | 2018-05-13 09:21 | NUR ---
PATIENT TOOK HER OWN HOME MEDICATION SHE BROUGHT SHE TOOK HER LEVOTHYROXINE AND LABETALOL
--- NOTE | 2018-05-13 09:48 | History & Physicial ---
History of Present Illness History of Present Illness Reason for visit/HPI PT IS A 67 Y/O FEMALE WHO IS KNOWN TO ME FROM CLINIC. SHE HAD APPARENTLY HAD ACUTE GI ILLNESS OVER THE WEEKEND WITH NAUSEA AND EMESIS. SHE REPORTS THAT SHE FELL AT HOME WELL DUE TO A CRUMBLING STEP OUTSIDE OF THE HOUSE AND SHE HAS PAIN IN HER LEFT BUTTOCK AND ACROSS HER CHEST. SHE STATES THAT SHE HAS PAIN IN HER SHOULDERS AND UPPER BACK. THE EMERGENCY DEPARTMENT EVALUATION RECOMMENDATION WAS FOR ADMISSION DUE TO HER SYMPTOMS AND FAMILY HX OF CAD. Date of Admission May 12, 2018 at 19:34 Date Seen by a Provider: May 13, 2018 Time Seen by a Provider: 09:40 I consulted on this patient on 05/13/18 09:48 Attending Physician Mario Barboza MD Admitting Physician Mario Barboza MD Consult DR. YANG Allergies and Home Medications Allergies Coded Allergies: Sulfa (Sulfonamide Antibiotics) (Verified Allergy, Unknown, 03/05/08) codeine (Verified Allergy, Unknown, 03/05/08) meperidine (Verified Allergy, Unknown, 03/05/08) morphine (Verified Allergy, Unknown, 03/05/08) penicillin G (Verified Allergy, Unknown, 03/05/08) Home Medications Aspirin 81 Mg Tablet., 81 MG PO Q48H, (Reported) Calcium Carbonate/Vitamin D3 1 Each Tablet, 1 TAB PO BID, (Reported) Cefuroxime Axetil 250 Mg Tablet, 250 MG PO BID Prescribed by: SIENNA COX on 05/10/18 1643 Duloxetine HCl 60 Mg Capsule., 60 MG PO DAILY, (Reported) Labetalol HCl 100 Mg Tablet, 100 MG PO BID, (Reported) Levothyroxine Sodium 75 Mcg Tablet, 75 MCG PO DAILY, (Reported) Lovastatin 10 Mg Tablet, 10 MG PO HS, (Reported) Magnesium Oxide 500 Mg Capsule, 500 MG PO HS, (Reported) Melatonin/Lemon [place] Extr 1 Each Tablet, 1 TAB PO HS, (Reported) Meloxicam 15 Mg Tablet, 15 MG PO DAILY, (Reported) Metformin HCl 500 Mg Tablet, 500 MG PO BID, (Reported) Multivits-Min/Iron/FA/Lutein 1 Each Tablet, 1 TAB PO DAILY, (Reported) Olmesartan Medoxomil 40 Mg Tablet, 40 MG PO DAILY, (Reported) Ondansetron 8 Mg Tab.rapdis, 8 MG PO Q6H PRN for NAUSEA/VOMITING-1ST LINE Prescribed by: SIENNA COX on 05/10/18 1643 Quinapril HCl 40 Mg Tablet, 40 MG PO HS, (Reported) Sennosides/Docusate Sodium 1 Each Tablet, 2 TAB PO Q48H@2100, (Reported) Tramadol HCl 50 Mg Tablet, 50 MG PO BID PRN for PAIN-MODERATE, (Reported) Tramadol HCl 50 Mg Tablet, 50 MG PO HS, (Reported) [[place] 3/Turmeric] , 1 CAP PO BID, (Reported) Patient Home Medication List Home Medication List Reviewed: Yes Past Iqpiluw-Vmyjlu-Raawit Hx Patient Social History Marrital Status: (REMARRIED), Number of Children: 3 Number of living children: 3 Living Status: LIVES WITH SPOUSE 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) Alcohol Use: Occasionally Uses Number of Drinks Today: Alcohol Beverage of Choice: Wine Recreational Drug Use: No Smoking Status: Never a Smoker Former Smoker, Quit: Apr 08, 1981 2nd Hand Smoke Exposure: No Physical Abuse Screen: No Sexual Abuse: No Recent Foreign Travel: No Contact w/other who traveled: No Recent Hopitalizations: No Recent Infectious Disease Expo: No Immunizations Up To Date Tetanus Booster (TDap): More than 5yrs Date of Pneumonia Vaccine: Apr 08, 2012 Date of Influenza Vaccine: Feb 09, 2018 Seasonal Allergies Seasonal Allergies: No Surgeries Yes (LEFT RIB LYPOMA) Adenoidectomy, Appendectomy, Gallbladder, Hysterectomy, Orthopedic, Tonsillectomy Respiratory No Cardiovascular Yes (bradycardia) Heart Murmur, High Cholesterol, Hypertension Neurological No Reproductive System : No Hx Reproductive Disorders: No Sexually Transmitted Disease: No HIV/AIDS: 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 Genitourinary No Gastrointestinal No Musculoskeletal Yes Rheumatoid Arthritis Endocrine History of Endocrine Disorders: Yes Endocrine Disorders: Hypothyroidsim, Diabetes, Non-Insulin dep HEENT History of HEENT Disorders: No Loss of Vision: Denies Hearing Impairment: Denies Cancer No Psychosocial History of Psychiatric Problem: Yes Behavioral Health Disorders: Depression Integumentary History of Skin or Integumenta: No Blood Transfusions History of Blood Disorders: Yes (OSTEOPENIA) Adverse Reaction to a Blood Tr: No Reviewed Nursing Assessment Reviewed/Agree w Nursing PMH: Yes Family Medical History Significant Family History: Heart Disease, Cancer, Diabetes, Hypertension Family Hx: Cardiovascular disease 19 MOTHER, Onset:50's - 60 G8 BROTHER, Onset:30's - 40 G8 BROTHER, Onset:40's - 50 G8 BROTHER, Onset:30's - 40 Colon cancer 19 FATHER Diabetes mellitus 19 FATHER G8 SISTER, Onset:40's - 50 G8 SISTER G8 BROTHER Myocardial infarction G8 SISTER G8 SISTER Review of Systems Constitutional: No chills; dizziness, malaise, weakness EENTM: No hoarseness, No throat pain Respiratory: No cough, No dyspnea on exertion; short of breath Cardiovascular: chest pain; No palpitations Gastrointestinal: No abdominal pain; nausea Genitourinary: no symptoms reported Musculoskeletal: back pain, joint pain, joint swelling Skin: other (BRUSING LEFT HIP) Psychiatric/Neurological: Denies Anxiety All Other Systems Reviewed Negative Unless Noted: Yes Physical Exam Vital Signs Vital Signs - First Documented 05/12/18 15:20 Temp 97.2 Pulse 68 Resp 13 B/P (MAP) 200/105 (136) Pulse Ox 98 O2 Delivery Room Air Capillary Refill : Less Than 3 Seconds Height, Weight, BMI Height: 5'1.00" Weight: 191lbs. 0.0oz. [id number]; 36.1 BMI Method:Stated General Appearance: No Apparent Distress, WD/WN Eyes: Bilateral Eye Normal Inspection, Bilateral Eye PERRL, Bilateral Eye EOMI HEENT: PERRL/EOMI, Pharynx Normal Neck: Full Range of Motion, Supple Respiratory: Chest Non Tender, Lungs Clear, Normal Breath Sounds, No Accessory Muscle Use Cardiovascular: Regular Rate, Rhythm, No Edema, Normal Peripheral Pulses Gastrointestinal: Normal Bowel Sounds, Non Tender, Soft Rectal: Deferred Back: No CVA Tenderness, No Vertebral Tenderness Extremity: Normal Capillary Refill, No Pedal Edema, Other (BRUSING OVER LEFT LATERAL HIP/BUTTOCK) Neurologic/Psychiatric: Alert, Oriented x3, No Motor/Sensory Deficits, Normal 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 YANG - PLAN ON STRESS TESTING VERSUS HEART CATHETERIZATION NAUSEA WITH ESOPHAGEAL REFLUX - PPI AND ZOFRAN UNCONTROLLED HYPERTENSION - DEFER TO DR. YANG - WILL BE DETERMINED AFTER HEART CATH. DIABETES MELLITUS - HOLD METFORMIN UNTIL PLAN IS IN PLACE FOR HEART CATH HYPERLIPIDEMIA - RESTART HOME MEDS OR HOSPITAL FORMULARY STATIN Admission Diagnosis CHEST PAIN NAUSEA ESOPHAGEAL REFLUX UNCONTROLLED HYPERTENSION DIABETES MELLITUS HYPERLIPIDEMIA Admission Status: Observation Clinical Quality Measures AMI/AHF: ASA po Prior to arrival: No DVT/VTE Risk/Contraindication: Risk Factor Score Per Nursin RFS Level Per Nursing on Admit: 3=High MARIO BARBOZA MD May 13, 2018 09:48
--- NOTE | 2018-05-13 10:26 | NUR ---
PAGED DR YANG AGAIN
--- NOTE | 2018-05-13 10:31 | NUR ---
DR YANG RETURNED THE PAGE. ORDERED AN ECHO
--- NOTE | 2018-05-13 10:55 | Consultation-Cardiology ---
HPI-Cardiology Cardiology Consultation: Date of Consultation 05/13/18 Time Seen by a Provider: 10:20 Date of Admission 05-12-18 Attending Physician Marcie Barboza MD Admitting Physician Marcie Barboza MD Consulting Physician BREN MAGUIRE HPI: Chief Complaint: Chest pain Ms. Foster is a 67 year old female who has been admitted to [facility] from the ED with chest discomfort. She reports over the weekend she had n/v for which she was unable to keep anything down. She reports intermittent chills. She went to the ED and was evaluated with abx tx for a UTI. She reports she went home and was feeling somewhat better the next day, but the n/v/ continued along with gen weakness. She then went back to the ED, but left before being evaluated. She reports she felt better yesterday morning. She went to cardiac rehab with her significant other. She participated for approx 40 minutes, but not at her usual pace. She reports she went to see her grand children afterwards. She was leaving their house when she misstepped and fell. She reports a bruise to her left hip. She states they then went to [employer]. She was having discomfort across her shoulders, which she describes as an ache. She reports as she was in the store she began to have a feeling of a tight band across her chest with mid-sternal pressure "like a belt buckle" along with sharp pains to her left breast. She reports she began to feel increasingly unwell. She came to the ED at which time she received 3 dose of nitro which gradually resulted in resolution of chest discomfort. No c/o diaphoresis, palpitations, dizziness, syncope or near syncope. She reports a feeling of inability to take a deep breath. She reports ACW discomfort with palpation. No c/o LE swelling. Review of Systems-Cardiology Review of Systems Constitutional: chills, malaise Eyes: No blurred vision Ears/Nose/Throat: No epistaxis, No recent hearing loss Respiratory: As described under HPI Cardiovascular: As described under HPI Gastrointestinal: As described under HPI Genitourinary: No dysuria, No hematuria Musculoskeletal: As describe under HPI Skin: No rash, No ulcerations Psychiatric/Neurological: anxiety, depression; No seizure, No focal weakness, No syncope Hematologic: easy bruising All Other Systems Reviewed Negative Unless Noted: Yes PJJ-Jclyam-Eikley Hx Patient Social History Alcohol Use: Occasionally Uses Recreational Drug Use: No Smoking Status: Never a Smoker 2nd Hand Smoke Exposure: No Recent Foreign Travel: No Recent Infectious Disease Expo: No Immunizations Up To Date Tetanus Booster (TDap): More than 5yrs Date of Pneumonia Vaccine: Apr 08, 2012 Date of Influenza Vaccine: Feb 09, 2018 Past Medical History PMH As described under Assessment. Family Medical History Family Medical History: She reports her mother passed from an LA at age 52. She reports 2 sisters with LA's before age 50. She reports 3 brothers with LA's before age 50. Family History: Cardiovascular disease 19 MOTHER, Onset:50's - 60 G8 BROTHER, Onset:30's - 40 G8 BROTHER, Onset:40's - 50 G8 BROTHER, Onset:30's - 40 Colon cancer 19 FATHER Diabetes mellitus 19 FATHER G8 SISTER, Onset:40's - 50 G8 SISTER G8 BROTHER Myocardial infarction G8 SISTER G8 SISTER Allergies and Home Medications Allergies Coded Allergies: Sulfa (Sulfonamide Antibiotics) (Verified Allergy, Unknown, 03/05/08) codeine (Verified Allergy, Unknown, 03/05/08) meperidine (Verified Allergy, Unknown, 03/05/08) morphine (Verified Allergy, Unknown, 03/05/08) penicillin G (Verified Allergy, Unknown, 03/05/08) Home Medications Aspirin 81 Mg Tablet.dr, 81 MG PO Q48H, (Reported) Calcium Carbonate/Vitamin D3 1 Each Tablet, 1 TAB PO BID, (Reported) Cefuroxime Axetil 250 Mg Tablet, 250 MG PO BID Prescribed by: SIENNA COX on 05/10/18 8853 Duloxetine HCl 60 Mg Capsule.dr, 60 MG PO DAILY, (Reported) Labetalol HCl 100 Mg Tablet, 100 MG PO BID, (Reported) Levothyroxine Sodium 75 Mcg Tablet, 75 MCG PO DAILY, (Reported) Lovastatin 10 Mg Tablet, 10 MG PO HS, (Reported) Magnesium Oxide 500 Mg Capsule, 500 MG PO HS, (Reported) Melatonin/Lemon [place] Extr 1 Each Tablet, 1 TAB PO HS, (Reported) Meloxicam 15 Mg Tablet, 15 MG PO DAILY, (Reported) Metformin HCl 500 Mg Tablet, 500 MG PO BID, (Reported) Multivits-Min/Iron/FA/Lutein 1 Each Tablet, 1 TAB PO DAILY, (Reported) Olmesartan Medoxomil 40 Mg Tablet, 40 MG PO DAILY, (Reported) Ondansetron 8 Mg Tab.rapdis, 8 MG PO Q6H PRN for NAUSEA/VOMITING-1ST LINE Prescribed by: SIENNA COX on 05/10/18 1643 Quinapril HCl 40 Mg Tablet, 40 MG PO HS, (Reported) Sennosides/Docusate Sodium 1 Each Tablet, 2 TAB PO Q48H@2100, (Reported) Tramadol HCl 50 Mg Tablet, 50 MG PO BID PRN for PAIN-MODERATE, (Reported) Tramadol HCl 50 Mg Tablet, 50 MG PO HS, (Reported) [[place] 3/Turmeric] , 1 CAP PO BID, (Reported) Physical Exam-Cardiology Physical Exam Vital Signs/I&O 05/13/18 05/13/18 05/13/18 05/13/18 07:10 08:00 08:00 12:00 Temp 97.6 97.7 Pulse 67 67 65 Resp 16 18 B/P (MAP) 138/74 (95) 142/80 (100) Pulse Ox 98 98 96 O2 Delivery Room Air Room Air Room Air 05/13/18 13:19 Pulse 59 05/13/18 00:00 Intake Total 1100 ml Balance 1100 ml Capillary Refill : Less Than 3 Seconds Constitutional: AAO x 3, well-developed, well-nourished HEENT: PERRL, hearing is well preserved, oral hygience is good; No ulceration Neck: No carotid bruit; carotid pulses are 2 + bilaterally Respiratory: No accessory muscle use, No respiratory distress; chest expansion is symmetric, chest is bilaterally symmetric, lungs clear to auscultation Cardiovascular: regular rate-rhythm; No JVD; S1 and S2 Gastrointestinal: No tender; soft, round, audible bowel sounds Extremities: no lower extremity edema bilateral Neurologic/Psychiatric: grossly intact, power is 5/5 both on sides Skin: No rash, No ulcerations Data Review Labs Laboratory Tests 05/12/18 18:46: Myoglobin 71.6, Troponin I < 0.028 05/13/18 01:05: Myoglobin 60.4, Troponin I < 0.028, White Blood Count 5.4, Red Blood Count 4.01L , Hemoglobin 12.2, Hematocrit 37, Mean Corpuscular Volume 92, Mean Corpuscular Hemoglobin 30, Mean Corpuscular Hemoglobin Concent 33, Red Cell Distribution Width 13.1, Platelet Count 239, Mean Platelet Volume 9.2, Neutrophils (%) (Auto ) 47, Lymphocytes (%) (Auto) 39, Monocytes (%) (Auto) 9, Eosinophils (%) (Auto) 5, Basophils (%) (Auto) 0, Neutrophils # (Auto) 2.6, Lymphocytes # (Auto) 2.1, Monocytes # (Auto) 0.5, Eosinophils # (Auto) 0.3, Basophils # (Auto) 0.0, Prothrombin Time 13.5, INR Comment 1.0, Activated Partial Thromboplast Time 36H , Sodium Level 143, Potassium Level 3.9, Chloride Level 109H, Carbon Dioxide Level 22, Anion Gap 12, Blood Urea Nitrogen 15, Creatinine 0.84, Estimat Glomerular Filtration Rate > 60, BUN/Creatinine Ratio 18, Glucose Level 135H, Calcium Level 8.5, Corrected Calcium 9.0, Total Bilirubin 0.2, Aspartate Amino Transf (AST/SGOT) 25, Alanine Aminotransferase (ALT/SGPT) 20, Alkaline Phosphatase 58, Total Protein 5.5L, Albumin 3.4, Triglycerides Level 103, Cholesterol Level 119, LDL Cholesterol Direct 51, VLDL Cholesterol 21, HDL Cholesterol 43 05/13/18 05:49: Glucometer 124H 05/13/18 10:52: Glucometer 96 Radiology NAME: VITO FOSTER [facility] REC#: [id number] PT STATUS: ADM Irlanda : 1950 PHYSICIAN: MIRACLE BURRIS MD ADMIT DATE: 05/12/18 Signed Date of Exam: 05/12/18 CT CHEST WO PROCEDURE: CT chest without contrast. TECHNIQUE: Multiple contiguous axial images were obtained through the chest without the use of intravenous contrast. INDICATION: Chest pain. There are no prior CT chest examinations available for comparison. FINDINGS: The plain film examination of the chest performed earlier today at 3:51 PM did note cardiomegaly and a tortuous right-sided descending thoracic aorta. Those findings are again evident on this study. The heart is enlarged and there are dense coronary artery calcifications evident. The aortic knob is on the right side and the descending thoracic aorta does extend towards midline before coursing along the right heart border. The aorta in this area is prominent and the left subclavian artery does arise from this region of the aorta. 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 There is no abnormality of the aorta itself although the aorta is difficult to evaluate due to the absence of intravenous contrast. There is mild fibrosis/scar formation involving each lower lobe. The lungs are otherwise generally clear. There is no evidence for failure, pneumonia or for pleural effusion. There is a small 5 MM pleural-based nodule on the periphery of the right midlung. This is most likely a benign process. There is no mediastinal or hilar adenopathy. The thyroid gland was not well visualized. There is no obvious breast mass. The sections through the upper abdomen show that the gallbladder is surgically absent. There is excretion of the contrast used for the CTA head and neck exam by both kidneys. The bone windows show no sign of a fracture or destructive lesion. IMPRESSION: 1. There is cardiomegaly and coronary artery disease, but there is no sign of an acute cardiopulmonary abnormality. 2. 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 3. There are mild chronic pulmonary changes evident. 4. There has been prior cholecystectomy. 5. These results were discussed with Dr. Burris in the ER. Dictated by: Dictated on workstation # [id number] Dict: 05/12/18 1748 Trans: 05/12/182328 Interpreted by: ALFRED GARCIA MD Electronically signed by: ALFRED GARCIA MD 05/12/182328 NAME: VITO FOSTER [facility] REC#: [id number] PT STATUS: REG ER : 1950 PHYSICIAN: MIRACLE BURRIS MD ADMIT DATE: 05/12/18/ER Signed Date of Exam: 05/12/18 CT ANGIO HEAD/NECK PROCEDURE: CT angiography of the head and CT angiography of the neck with and without contrast. TECHNIQUE: Contiguous noncontrast images were obtained from the skull base through the vertex. After intravenous contrast administration, helical CT angiography of the neck was performed. Source data was reformatted into multiple MIP projections. Delayed post contrast acquisition was also obtained. INDICATION: Weakness, fall. COMPARISON: None. FINDINGS: The ventricles and cortical sulci are mildly prominent. There are areas of hypoattenuation in the periventricular white matter. No midline shift or significant mass effect is seen. No acute intracranial hemorrhage is seen. There is tortuosity of the internal carotid arteries without high-grade stenosis or occlusion, although the origin of the left common carotid artery is incompletely seen. There is atherosclerosis of the intracranial internal carotid arteries without high-grade stenosis seen. The right vertebral artery is dominant. The vertebral arteries are mildly tortuous. No stenosis or occlusion is seen. The anterior communicating artery is seen. The bilateral anterior cerebral arteries appear normal. The bilateral MCAs appear normal. The left posterior communicating artery is seen. The right is seen as well. The bilateral posterior cerebral arteries are seen. The P1 segments appear small. The superior cerebellar arteries appear normal. The basilar artery is mildly small but patent. No enhancing masses are seen. Perfusion appears subjectively symmetric. No acute osseous abnormality is seen in the calvarium or the cervical spine. There are severe degenerative changes at C5-6 and C6-7. There is biapical pleural scarring. IMPRESSION: 1. Mild atherosclerosis with no acute abnormality seen in the arteries of the head and neck. 2. No acute intracranial hemorrhage. No CT evidence of acute territorial ischemia. 3. Generalized parenchymal volume loss with findings suggestive of chronic microvascular disease. 4. Advanced degenerative changes at C5-6 and C6-7. Dictated by: Dictated on workstation # [id number] Dict: 05/12/18 174 Trans: 05/12/181855 Interpreted by: SHAWNA BRAND MD Electronically signed by: SHAWNA BRAND MD 05/12/181855 ECG Impression ECG Initial ECG Rhythm: Normal Sinus A/P-Cardiology Assessment/Admission Diagnosis Chest pain of undetermined etiology CTA of the chest on 05-12-18 - shows what appears to be a right-sided aortic arch , although the aortic arch does extend towards the midline before coursing along the right heart border. 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 Uncontrolled HTN HLD - statin tx DM 2 H/O cholecystectomy H/O tobacco use - quit 30 years ago Rheumatoid arthritis Hypothyroidism - replacement tx Family h/o CAD - mother passed from LA age 52, sisters x 2 with LA's before age 50, brothers x3 with LA's before age 50 Discussion and Recomendations Chest pain of undetermined etiology. Based on her symptoms, h/o and risk factors as noted above we are advising further coronary work up. We advise cardiac cath. We have discussed with her the procedure, risks, benefits and potential complications of cardiac cath with possible ad hoc coronary intervention. She verbalizes understanding and provides informed consent. Continue medication regimen including statin, ASA and anti-hypertensives We have visualized the medication bottles she has with her. She is taking Olmesartan and Accupril. D/t risk of hyperkalemia we advise she not be on MONIQUE and ARB tx. We advise continuation of ARB and cessation of MONIQUE. We advise echocardiogram to eval structure Monitor lab closely Further recs will be based on her hospital course We would like to thank Dr. Barboza for this consult Clinical Quality Measures AMI/AHF: ASA po Prior to arrival: No DVT/VTE Risk/Contraindication: Risk Factor Score Per Nursin RFS Level Per Nursing on Admit: 3=High BREN CAMACHO May 13, 2018 10:55
[2018-05-13] MEDS ORDERED: ASPIRIN 81 MG CHEW (CHILDREN'S ASA) PO ONE (11:00)
[2018-05-13] MEDS ORDERED: TRAM50TA2 PO ×4 (11:11)
[2018-05-13] MEDS ORDERED: CALC-901 PO ×2 (11:11)
[2018-05-13] MEDS ORDERED: MULT-1021 PO ×2 (11:11)
[2018-05-13] MEDS ORDERED: TURMERIC PO ×2 (11:11)
[2018-05-13] MEDS ORDERED: [UNRECOGNIZED DRUG - OTHER] PO ×2 (11:11)
[2018-05-13] MEDS ORDERED: DULO60CA6 PO ×2 (11:11)
[2018-05-13] MEDS ORDERED: MAGN500C15 PO ×2 (11:11)
[2018-05-13] MEDS ORDERED: MELA1TAB35 PO ×2 (11:11)
[2018-05-13] MEDS ORDERED: METF-397 PO (11:11)
[2018-05-13] MEDS ORDERED: LABE100T6 PO ×2 (11:11)
[2018-05-13] MEDS ORDERED: MELO15TA39 PO ×2 (11:11)
[2018-05-13] MEDS ORDERED: QUIN40TA14 PO ×2 (11:11)
[2018-05-13] MEDS ORDERED: SENN-145 PO ×2 (11:12)
[2018-05-13] MEDS ORDERED: DOCU-143 PO (11:12)
[2018-05-13 11:14] LABS: PROTHROMBIN TIME PATIENT 13.5 SEC (12.2-14.7)
--- NOTE | 2018-05-13 11:14 | NUR ---
PATIENT HAD HER MEDICATION BOTTLES IN THE ROOM WITH HER, I UPDATED THE MED REC WITH THEM WELL HER TELLING ME HOW SHE TAKES EACH MED. THE ONLY MEDICATION SHE DID NOT HAVE WITH HER WAS HER OTC SENNA S, SHE TAKES 2 TABS EVERY OTHER NIGHT AT BEDTIME.
[2018-05-13] MEDS ORDERED: HEParin (CATH LAB) 2,000 ML IV ONE (12:09)
[2018-05-13] MEDS ORDERED: LIDOCAINE 1% INJ 20 ML 20 ML VIAL ONE (12:09)
[2018-05-13] MEDS ORDERED: fentaNYL INJECTION 100 MCG/2 ML AMP ONE (15:13)
[2018-05-13] MEDS ORDERED: MIDAZOLAM 5 MG/5 ML (VERSED) VIAL ONE (15:13)
[2018-05-13] MEDS ORDERED: NS IV 1000 ML 1,000 ML ONE (15:13)
[2018-05-13] MEDS: NS IV 1000 ML 1,000 ML IV SCH (15:20)
--- NOTE | 2018-05-13 15:27 | Cardiac Procedure Note-CS/ASA ---
Pre-Procedure Note Pre-Op Procedure Note H&P Reviewed The H&P was reviewed, patient examined and no changes noted. Date H&P Reviewed: May 13, 2018 Time H&P Reviewed: 15:26 Conscious Sedation Pre-Proced Time 15:26 ASA Score 3 For ASA 3 and 4: Consider anesthesia and medical clearance. Also, for patients with a history of failed moderate sedation consider anesthesia. Airway Lungs Heart ASA score ASA 1: a normal healthy patient ASA 2: a patient with a mild systemic disease (mid diabetes, controlled hypertension, obesity ASA 3: a patient with a severe systemic disease that limits activity (angina , COPD, prior Myocardial infarction) ASA 4: a patient with an incapacitating disease that is a constant threat to life (CHF, renal failure) ASA 5: a moribund patient not expected to survive 24 hrs. (ruptured aneurysm) ASA 6: a declared brain- patient whose organs are being harvested. For emergent operations, add the letter E after the classification Mallampati Classification Grade 2 Sedation Plan Analgesia, Amnesia, Plan communicated to team members, Discussed options with patient/fam, Discussed risks with patient/fam The patient is an appropriate candidate to undergo the planned procedure, sedation, and anesthesia. The patient immediately re-assessed prior to indication. AMBROSIO YANG MD FACP FAC CCDS May 13, 2018 15:27
--- NOTE | 2018-05-13 16:19 | Consultation-Cardiology ---
HPI-Cardiology Cardiology Consultation: Date of Consultation 05/13/18 Time Seen by a Provider: 15:20 Date of Admission Attending Physician Marcie Barboza MD Admitting Physician Marcie Barboza MD Consulting Physician AMBROSIO YANG MD, MA, FACP, FACC, FSCAI, CCDS HPI: Chief Complaint: CC: Chest pain HPI: Ms. Foster is a 67 year old female who has been admitted to [facility] from the ED with chest discomfort. She reports over the weekend she had n/v for which she was unable to keep anything down. She reports intermittent chills. She went to the ED and was evaluated with abx tx for a UTI. She reports she went home and was feeling somewhat better the next day, but the n/v/ continued along with gen weakness. She then went back to the ED, but left before being evaluated. She reports she felt better yesterday morning. She went to cardiac rehab with her significant other. She participated for approx 40 minutes, but not at her usual pace. She reports she went to see her grand children afterwards. She was leaving their house when she misstepped and fell. She reports a bruise to her left hip. She states they then went to [employer]. She was having discomfort across her shoulders, which she describes as an ache. She reports as she was in the store she began to have a feeling of a tight band across her chest with mid-sternal pressure "like a belt buckle" along with sharp pains to her left breast. She reports she began to feel increasingly unwell. She came to the ED at which time she received 3 dose of nitro which gradually resulted in resolution of chest discomfort. No c/o diaphoresis, palpitations, dizziness, syncope or near syncope. She reports a feeling of inability to take a deep breath. She reports ACW discomfort with palpation. No c/o LE swelling. Review of Systems-Cardiology Review of Systems Constitutional: chills, malaise Eyes: No blurred vision Ears/Nose/Throat: No epistaxis, No recent hearing loss Respiratory: As described under HPI Cardiovascular: As described under HPI Gastrointestinal: As described under HPI Genitourinary: No dysuria, No hematuria Musculoskeletal: As describe under HPI Skin: No rash, No ulcerations Psychiatric/Neurological: anxiety, depression; No seizure, No focal weakness, No syncope Hematologic: easy bruising All Other Systems Reviewed Negative Unless Noted: Yes DZC-Otjcpi-Lbfzaj Hx Patient Social History Alcohol Use: Occasionally Uses Recreational Drug Use: No Smoking Status: Never a Smoker 2nd Hand Smoke Exposure: No Recent Foreign Travel: No Recent Infectious Disease Expo: No Immunizations Up To Date Tetanus Booster (TDap): More than 5yrs Date of Pneumonia Vaccine: Apr 08, 2012 Date of Influenza Vaccine: Feb 09, 2018 Past Medical History PMH As described under Assessment. Family Medical History Family Medical History: She reports her mother passed from an SD at age 52. She reports 2 sisters with SD's before age 50. She reports 3 brothers with SD's before age 50. Family History: Cardiovascular disease 19 MOTHER, Onset:50's - 60 G8 BROTHER, Onset:30's - 40 G8 BROTHER, Onset:40's - 50 G8 BROTHER, Onset:30's - 40 Colon cancer 19 FATHER Diabetes mellitus 19 FATHER G8 SISTER, Onset:40's - 50 G8 SISTER G8 BROTHER Myocardial infarction G8 SISTER G8 SISTER Allergies and Home Medications Allergies Coded Allergies: Sulfa (Sulfonamide Antibiotics) (Verified Allergy, Unknown, 03/05/08) codeine (Verified Allergy, Unknown, 03/05/08) meperidine (Verified Allergy, Unknown, 03/05/08) morphine (Verified Allergy, Unknown, 03/05/08) penicillin G (Verified Allergy, Unknown, 03/05/08) Home Medications Aspirin 81 Mg Tablet.dr, 81 MG PO Q48H, (Reported) Calcium Carbonate/Vitamin D3 1 Each Tablet, 1 TAB PO BID, (Reported) Cefuroxime Axetil 250 Mg Tablet, 250 MG PO BID Prescribed by: SIENNA COX on 05/10/18 4831 Duloxetine HCl 60 Mg Capsule.dr, 60 MG PO DAILY, (Reported) Labetalol HCl 100 Mg Tablet, 100 MG PO BID, (Reported) Levothyroxine Sodium 75 Mcg Tablet, 75 MCG PO DAILY, (Reported) Lovastatin 10 Mg Tablet, 10 MG PO HS, (Reported) Magnesium Oxide 500 Mg Capsule, 500 MG PO HS, (Reported) Melatonin/Lemon [place] Extr 1 Each Tablet, 1 TAB PO HS, (Reported) Meloxicam 15 Mg Tablet, 15 MG PO DAILY, (Reported) Metformin HCl 500 Mg Tablet, 500 MG PO BID, (Reported) Multivits-Min/Iron/FA/Lutein 1 Each Tablet, 1 TAB PO DAILY, (Reported) Olmesartan Medoxomil 40 Mg Tablet, 40 MG PO DAILY, (Reported) Ondansetron 8 Mg Tab.rapdis, 8 MG PO Q6H PRN for NAUSEA/VOMITING-1ST LINE Prescribed by: SIENNA COX on 05/10/18 1643 Quinapril HCl 40 Mg Tablet, 40 MG PO HS, (Reported) Sennosides/Docusate Sodium 1 Each Tablet, 2 TAB PO Q48H@2100, (Reported) Tramadol HCl 50 Mg Tablet, 50 MG PO BID PRN for PAIN-MODERATE, (Reported) Tramadol HCl 50 Mg Tablet, 50 MG PO HS, (Reported) [[place] 3/Turmeric] , 1 CAP PO BID, (Reported) Patient Home Medication List Home Medication List Reviewed: Yes Physical Exam-Cardiology Physical Exam Vital Signs/I&O 05/13/18 05/13/18 05/13/18 05/13/18 07:10 08:00 08:00 12:00 Temp 97.6 97.7 Pulse 67 67 65 Resp 16 18 B/P (MAP) 138/74 (95) 142/80 (100) Pulse Ox 98 98 96 O2 Delivery Room Air Room Air Room Air 05/13/18 13:19 Pulse 59 05/13/18 00:00 Intake Total 1100 ml Balance 1100 ml Capillary Refill : Less Than 3 Seconds Constitutional: AAO x 3, well-developed, well-nourished HEENT: PERRL, hearing is well preserved, oral hygience is good; No ulceration Neck: No carotid bruit; carotid pulses are 2 + bilaterally Respiratory: No accessory muscle use, No respiratory distress; chest expansion is symmetric, chest is bilaterally symmetric, lungs clear to auscultation Cardiovascular: regular rate-rhythm; No JVD; S1 and S2 Gastrointestinal: No tender; soft, round, audible bowel sounds Extremities: no lower extremity edema bilateral Neurologic/Psychiatric: grossly intact, power is 5/5 both on sides Skin: No rash, No ulcerations Data Review Labs Laboratory Tests 05/12/18 18:46: Myoglobin 71.6, Troponin I < 0.028 05/13/18 01:05: Myoglobin 60.4, Troponin I < 0.028, White Blood Count 5.4, Red Blood Count 4.01L , Hemoglobin 12.2, Hematocrit 37, Mean Corpuscular Volume 92, Mean Corpuscular Hemoglobin 30, Mean Corpuscular Hemoglobin Concent 33, Red Cell Distribution Width 13.1, Platelet Count 239, Mean Platelet Volume 9.2, Neutrophils (%) (Auto ) 47, Lymphocytes (%) (Auto) 39, Monocytes (%) (Auto) 9, Eosinophils (%) (Auto) 5, Basophils (%) (Auto) 0, Neutrophils # (Auto) 2.6, Lymphocytes # (Auto) 2.1, Monocytes # (Auto) 0.5, Eosinophils # (Auto) 0.3, Basophils # (Auto) 0.0, Prothrombin Time 13.5, INR Comment 1.0, Activated Partial Thromboplast Time 36H , Sodium Level 143, Potassium Level 3.9, Chloride Level 109H, Carbon Dioxide Level 22, Anion Gap 12, Blood Urea Nitrogen 15, Creatinine 0.84, Estimat Glomerular Filtration Rate > 60, BUN/Creatinine Ratio 18, Glucose Level 135H, Calcium Level 8.5, Corrected Calcium 9.0, Total Bilirubin 0.2, Aspartate Amino Transf (AST/SGOT) 25, Alanine Aminotransferase (ALT/SGPT) 20, Alkaline Phosphatase 58, Total Protein 5.5L, Albumin 3.4, Triglycerides Level 103, Cholesterol Level 119, LDL Cholesterol Direct 51, VLDL Cholesterol 21, HDL Cholesterol 43 05/13/18 05:49: Glucometer 124H 05/13/18 10:52: Glucometer 96 A/P-Cardiology Assessment/Admission Diagnosis Chest pain of undetermined etiology, no evidence of ACS Card cath of 05/13/18: Moderate, non-obstructive CAD; LVEF 65%; moderate elevation of LVEDP that is consistent with diastolic dysfunction of LV; R-sided aortic arch; 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 We proceeded with cath after having obtained an informed consent. Results are described above. Based on these results, medical management and risk factor management is the most appropriate management strategy * D/c ARB because pt on MONIQUE-inhibitor * Add amlodipine * Add doxazosin * Add Plavix * Continue ASA and statin * Hold metformin for 48 - 72 hours post cath * Monitor labs * I discussed her CV issues in detail with her and her family. We would like to thank Dr. Barboza for this consult Clinical Quality Measures AMI/AHF: ASA po Prior to arrival: No DVT/VTE Risk/Contraindication: Risk Factor Score Per Nursin RFS Level Per Nursing on Admit: 3=High AMBROSIO YANG MD FACP FAC CCDS May 13, 2018 16:19
[2018-05-13] MEDS ORDERED: NS IV 1000 ML 1,000 ML IV SCH (16:21)
[2018-05-13] MEDS ORDERED: CLOPIDOGREL 75 MG (PLAVIX) TABLET PO NR (16:30)
[2018-05-13] MEDS ORDERED: PATIENT MAY USE OWN MEDS, ALL PO SCH (16:30)
[2018-05-13] MEDS ORDERED: amLODIPine 10 MG (NORVASC) TAB PO NR (16:30)
[2018-05-13] MEDS ORDERED: lisINopril 20 MG (PRINIVIL) TABLET PO NR (16:30)
[2018-05-13] MEDS ORDERED: ATORVASTATIN 40 MG (LIPITOR) TABLET PO SCH (21:00)
[2018-05-13] MEDS ORDERED: QUINAPRIL 20 MG (ACCUPRIL) TAB PO SCH (21:00)
[2018-05-13] MEDS ORDERED: doxAzosin 2 MG (CARDURA) TAB PO SCH (21:00)
[2018-05-13] MEDS: LABETALOL 200 MG (NORMODYNE) TAB PO SCH (22:08)
--- NOTE | 2018-05-13 23:41 | CARDIAC CATHETERIZATION ---
DATE OF SERVICE: 05/13/2018 The patient is a 67-year-old lady who has multiple coronary artery disease risk factors and has been hospitalized with symptoms suggestive of new onset of angina. Cardiac catheterization was carried out after having obtained an informed consent. PROCEDURE: She was brought to the cardiac catheterization laboratory in fasting state. Right groin was prepared and draped in the usual sterile fashion. Lidocaine 1% with local anesthesia and modified Seldinger technique was used to advance a 5-Malagasy sheath in right femoral artery, 5-Malagasy JL4 catheter for left coronary angiography, 5-Malagasy JR4 catheter for right coronary angiography, 5-Malagasy pigtail catheter was used for left heart catheterization and left ventricular angiography. Pigtail was pulled back to the ascending aorta and ascending aortography was performed with runoff down to the level of the aortoiliac bifurcation. This was performed because the patient had a right-sided arch. The catheter was then pulled back to the aortic arch and aortic arch angiography was performed. This was to delineate the anatomy of the neck vessels, given patient's right-sided aortic arch and bulbous origin of the left subclavian artery. Angiography of the right femoral artery was carried out through the sheath at the beginning of the procedure. At the end of the procedure, Mynx was used to achieve hemostasis following sheath removal. She tolerated the procedure well. HEMODYNAMICS: Left ventricular end-diastolic pressure following coronary angiography was 18 mmHg. There was no significant pressure gradient on pullback across the aortic valve. Ascending aortic pressure was 207/104 with a mean of 48 mmHg. CORONARY ANGIOGRAPHY: There is diffuse moderate plaque and there is some calcification of the coronary arteries involving all coronary vessels. The stenoses up to 40% to 50% are seen at multiple spots. There does not appear to be any obstructive coronary artery disease. Right coronary artery is dominant. LEFT VENTRICULAR CORONARY ANGIOGRAPHY: Left ventricular coronary angiography was carried out in the right anterior oblique projection. Global left ventricular systolic function normal. Left ventricular ejection fraction is estimated to be 65%. There does not appear to be significant mitral regurgitation. AORTIC ROOT ANGIOGRAPHY: Aortic root angiography did not indicate any significant aortic root enlargement. Aortic valve leaflets exhibit good leaflet excursion. There does not appear to be significant aortic regurgitation. The aortic arch is right-sided and the thoracic aorta is to the right of the heart border and then crosses over in the mid abdomen to the left side. There does not appear to be any significant aneurysmal dilatation. A bulbous distal origin of the left subclavian artery is seen. AORTIC ARCH ANGIOGRAPHY: Aortic arch angiography did not indicate any significant thoracic aortic aneurysm or dissection. The neck arteries, to the extent seen, do not exhibit significant disease. CONCLUSIONS: 1. Moderate coronary artery disease, angiographically nonobstructive. 2. Right-sided aortic arch. 3. 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 4. Elevated left ventricular end-diastolic pressure. 5. Normal global left ventricular systolic function with ejection fraction approximately 65%. DISCUSSION AND RECOMMENDATIONS: Based on results of the study, it appears appropriate to continue a conservative approach. Focus on risk factor modification. Blood pressure control is advised. Continuing diabetes management is advised. Statin therapy with an LDL goal of less than 70 mg per deciliter is recommended. Outpatient followup is advised. Job ID: [id number] DocumentID: [id number] Dictated Date: 05/13/2018 17:13:52 Host/Hostess Head Date: 05/13/2018 23:40:19 Dictated By: AMBROSIO YANG MD, MA, FACP, FACC, MTDD
[2018-05-14 02:32] VITALS: BP 140/70
[2018-05-14 04:00] VITALS: BP 138/80
[2018-05-14 04:06] LABS: HEMOGLOBIN 12.7 G/DL (11.5-16.0); MEAN PLATELET VOLUME 9.4 FL (7.4-10.4); RED CELL DISTRIBUTION WIDTH 13.4 % (10.0-14.5); WHITE BLOOD COUNT 5.4 10^3/uL (4.3-11.0)
[2018-05-14 04:30] LABS: BUN/CREATININE RATIO 14; CALCIUM 8.5 MG/DL (8.5-10.1); CARBON DIOXIDE 22 MMOL/L (21-32); CHLORIDE 107 MMOL/L (98-107); CREATININE SERUM 0.74 MG/DL (0.60-1.30); GFR ESTIMATED > 60; GLUCOSE 138 MG/DL (70-105); POTASSIUM 3.7 MMOL/L (3.6-5.0); SODIUM 140 MMOL/L (135-145)
[2018-05-14] MEDS: inSUlin ASPART (NovoLOG) 1 UNIT/0.01 ML (CHARGE PER UNIT) SC SCH ×2 (05:53→10:21)
[2018-05-14] MEDS: CATHETER FLUSH 10 ML SYR IV SCH (06:00)
[2018-05-14] MEDS ORDERED: LEVOTHYROXINE 75 MCG (LEVOTHROID) TABLET PO SCH (06:30)
[2018-05-14 08:00] VITALS: BP 143/80
--- NOTE | 2018-05-14 08:53 | Discharge Summary ---
Diagnosis/Chief Complaint Date of Admission May 12, 2018 at 19:34 Date of Discharge Reason Hospital Visit PT IS A 67 Y/O FEMALE WHO IS KNOWN TO ME FROM CLINIC. SHE HAD APPARENTLY HAD ACUTE GI ILLNESS OVER THE WEEKEND WITH NAUSEA AND EMESIS. SHE REPORTS THAT SHE FELL AT HOME WELL DUE TO A CRUMBLING STEP OUTSIDE OF THE HOUSE AND SHE HAS PAIN IN HER LEFT BUTTOCK AND ACROSS HER CHEST. SHE STATES THAT SHE HAS PAIN IN HER SHOULDERS AND UPPER BACK. THE EMERGENCY DEPARTMENT EVALUATION RECOMMENDATION WAS FOR ADMISSION DUE TO HER SYMPTOMS AND FAMILY HX OF CAD. Discharge Summary Discharge Physical Examination Allergies: Coded Allergies: Sulfa (Sulfonamide Antibiotics) (Verified Allergy, Unknown, 03/05/08) codeine (Verified Allergy, Unknown, Pt takes Tramadol at home, 05/13/18) meperidine (Verified Allergy, Unknown, 03/05/08) morphine (Verified Allergy, Unknown, Pt takes Tramadol at home, 05/13/18) penicillin G (Verified Allergy, Unknown, 03/05/08) Vitals & I&Os Vital Signs Date Time Temp Pulse Resp B/P (MAP) Pulse Ox O2 Delivery O2 Flow Rate FiO2 05/14/18 07:00 65 05/14/18 04:00 97.0 20 138/80 (99) 95 Room Air Hospital Course Pending Labs Laboratory Tests 05/14/18 03:50: White Blood Count 5.4, Red Blood Count 4.25, Hemoglobin 12.7, Hematocrit 39, Mean Corpuscular Volume 92, Mean Corpuscular Hemoglobin 30, Mean Corpuscular Hemoglobin Concent 33, Red Cell Distribution Width 13.4, Platelet Count 227, Mean Platelet Volume 9.4, Sodium Level 140, Potassium Level 3.7, Chloride Level 107, Carbon Dioxide Level 22, Anion Gap 11, Blood Urea Nitrogen 10, Creatinine 0.74, Estimat Glomerular Filtration Rate > 60, BUN/Creatinine Ratio 14, Glucose Level 138, Calcium Level 8.5 Discharge Instructions to patient/family Please see electronic discharge instructions given to patient. Discharge Medications Reviewed and agree with Discharge Medication list on patient's Discharge Instruction sheet Clinical Quality Measures AMI/AHF: ASA po Prior to arrival: No DVT/VTE Risk/Contraindication: Risk Factor Score Per Nursin RFS Level Per Nursing on Admit: 3=High MARIO PAUL MD May 14, 2018 08:53
[2018-05-14] MEDS ORDERED: DOXA2TAB2 PO ×2 (08:58)
[2018-05-14] MEDS ORDERED: METF-397 PO ×2 (08:58)
[2018-05-14] MEDS ORDERED: ATOR80TA64 PO ×2 (08:58)
[2018-05-14] MEDS ORDERED: AMLO10TA7 PO ×2 (08:58)
[2018-05-14] MEDS ORDERED: CLOP75TA28 PO ×2 (08:58)
[2018-05-14] MEDS ORDERED: lisINopril 20 MG (PRINIVIL) TABLET PO SCH (09:00)
[2018-05-14] MEDS ORDERED: amLODIPine 10 MG (NORVASC) TAB PO SCH (09:00)
[2018-05-14] MEDS ORDERED: CLOPIDOGREL 75 MG (PLAVIX) TABLET PO SCH (09:00)
[2018-05-14] MEDS ORDERED: DULoxetine 30 MG (CYMBALTA) CAP PO SCH (09:00)
[2018-05-14] MEDS ORDERED: ASPIRIN 81 MG CHEW (CHILDREN'S ASA) PO SCH (09:00)
--- NOTE | 2018-05-14 09:01 | Discharge Inst-Complex ---
[facility] Med Rec & Follow Up Appt. New Medications: Atorvastatin Calcium (Lipitor) 80 Mg Tablet 80 MG PO DAILY, #90 TAB 3 Refills Amlodipine Besylate (Amlodipine Besylate) 10 Mg Tablet 10 MG PO DAILY, #90 TAB 3 Refills Clopidogrel Bisulfate (Clopidogrel) 75 Mg Tablet 75 MG PO DAILY, #90 TAB 3 Refills Doxazosin Mesylate (Doxazosin Mesylate) 2 Mg Tablet 2 MG PO HS, #90 TAB 4 Refills Changed Medications: Metformin HCl (Metformin HCl) 500 Mg Tablet 500 MG PO BID, #60 TAB (Medication details modified) RESTART THIS MEDICATION ON 05/16/18 IN THE MORNING Continued Medications: Aspirin (Aspirin EC) 81 Mg Tablet.dr 81 MG PO Q48H, TAB Calcium Carbonate/Vitamin D3 (Calcium 600 + Vit D 800 Tab) 1 Each Tablet 1 TAB PO BID, TAB Duloxetine HCl (Cymbalta) 60 Mg Capsule.dr 60 MG PO DAILY, CAP Labetalol HCl (Labetalol HCl) 100 Mg Tablet 100 MG PO BID, TAB Levothyroxine Sodium (Synthroid) 75 Mcg Tablet 75 MCG PO DAILY, TAB Magnesium Oxide (Magnesium) 500 Mg Capsule 500 MG PO HS, CAP Melatonin/Lemon [place] Extr (Melatonin-Lemon [place] Tablet) 1 Each Tablet 1 TAB PO HS, TAB Meloxicam (Meloxicam) 15 Mg Tablet 15 MG PO DAILY, TAB Multivits-Min/Iron/FA/Lutein (Centrum Silver Women Tablet) 1 Each Tablet 1 TAB PO DAILY, TAB [[place] 3/Turmeric] () 1 CAP PO BID Ondansetron (Ondansetron Odt) 8 Mg Tab.rapdis 8 MG PO Q6H PRN for NAUSEA/VOMITING-1ST LINE, #10 TAB Quinapril HCl (Quinapril HCl) 40 Mg Tablet 40 MG PO HS, TAB Sennosides/Docusate Sodium (Senna S Tablet) 1 Each Tablet 2 TAB PO Q48H@2100, TAB Tramadol HCl (Tramadol HCl) 50 Mg Tablet 50 MG PO BID PRN for PAIN-MODERATE, TAB Tramadol HCl (Tramadol HCl) 50 Mg Tablet 50 MG PO HS, TAB Discontinued Medications: Cefuroxime Axetil (Cefuroxime) 250 Mg Tablet 250 MG PO BID, #6 TAB Lovastatin (Lovastatin) 10 Mg Tablet 10 MG PO HS, TAB Olmesartan Medoxomil (Benicar) 40 Mg Tablet 40 MG PO DAILY, TAB Prescription: Transmitted to Pharmacy Activity, Diet and PDI Resume Normal Activity: Yes Discharge Diet: ADA Diet, Low Fat/Low Cholesterol Diet for 24 Hours: No [employer] Driving Instructions: No Driving for 24 Hours Return to The Hospital For: ANY CONCERN FOR LIFETHREATENING ILLNESS OR INJURY Symptoms to Reoprt to : Appetite Changes, Fever Over 101 Degrees F, Pain/ Pressure in Chest, Cough Up/Vomit Blood, Heart Beat Irreg/Pounding, Pain/ Pressure in Jaw For Problems or Questions: Contact Your Physician, Go to Emergency Room MARIO PAUL MD May 14, 2018 09:01
[2018-05-14] MEDS: LABETALOL 200 MG (NORMODYNE) TAB PO SCH (10:17)
[2018-05-14 12:00] VITALS: BP 130/78
--- NOTE | 2018-05-14 15:14 | Progress Note-Cardiology ---
Cardiology SOAP Progress Note Subjective: She feels well. No cp or palp or syncope or shortness of breath Objective: I&O/Vital Signs 05/14/18 05/14/18 05/14/18 05/14/18 04:00 07:00 08:00 08:00 Temp 97.0 97.8 Pulse 66 65 61 Resp 20 18 B/P (MAP) 138/80 (99) 143/80 (101) Pulse Ox 95 98 O2 Delivery Room Air Room Air Room Air 05/14/18 05/14/18 12:00 13:54 Temp 98.2 Pulse 66 Resp 18 B/P (MAP) 130/78 (95) Pulse Ox 97 O2 Delivery Room Air 05/14/18 00:00 Intake Total 3160 ml Balance 3160 ml Weight (Pounds): 191 Weight (Ounces): 0.0 Weight (Calculated Kilograms): [id number] Constitutional: AAO x 3, well-developed, well-nourished Respiratory: No accessory muscle use, No respiratory distress; chest expansion is symmetric, chest is bilaterally symmetric, lungs clear to auscultation Cardiovascular: regular rate-rhythm; No JVD; S1 and S2 Gastrointestional: No tender; soft, round, audible bowel sounds Extremities: no lower extremity edema bilateral Neurologic/Psychiatric: grossly intact, power is 5/5 both on sides Skin: No rash, No ulcerations Results/Procedures: Labs Laboratory Tests 05/13/18 20:10: Glucometer 129H 05/14/18 03:50: White Blood Count 5.4, Red Blood Count 4.25L, Hemoglobin 12.7, Hematocrit 39, Mean Corpuscular Volume 92, Mean Corpuscular Hemoglobin 30, Mean Corpuscular Hemoglobin Concent 33, Red Cell Distribution Width 13.4, Platelet Count 227, Mean Platelet Volume 9.4, Sodium Level 140, Potassium Level 3.7, Chloride Level 107, Carbon Dioxide Level 22, Anion Gap 11, Blood Urea Nitrogen 10, Creatinine 0.74, Estimat Glomerular Filtration Rate > 60, BUN/Creatinine Ratio 14, Glucose Level 138H, Calcium Level 8.5 05/14/18 10:07: Glucometer 120H Microbiology 05/13/18 MRSA Screen - Final, Complete MRSA not isolated Laboratory Tests 05/12/18 15:39 05/13/18 01:05 05/14/18 03:50 A/P: Assessment: Chest pain of undetermined etiology, no evidence of ACS Card cath of 05/13/18: Moderate, non-obstructive CAD; LVEF 65%; moderate elevation of LVEDP that is consistent with diastolic dysfunction of LV; R-sided aortic arch; 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 Hypertension and hypertensive cardiovascular disease HLD, treated with statins DM 2 H/o cholecystectomy H/o tobacco use - quit 30 years ago Rheumatoid arthritis H/o hypothyroidism, treated with thyroid replacement therapy Family h/o CAD - mother passed from LA age 52, sisters x 2 with LA's before age 50, brothers x3 with LA's before age 50 Plan: * I again discussed with her in detail the cath findings and our treatment recommendations * Hold metformin for 48 - 72 hours post cath * I discussed her case with Dr Barboza this morning * Outpt f/u is advised Clinical Quality Measures AMI/AHF: ASA po Prior to arrival: AMBROSIO Jorge MD FACP FAC CCDS May 14, 2018 15:14
== END 2018-05-14 13:15 | disposition home or self-care (01) ==
LOC: EDUNIT# 15:17 → ER 15:18 → UNDOADMOB 19:34 → 4TH 19:34 → CATH 20:15 → 4TH 20:15 → UNDODISOB 05-14 13:15 → CATH 05-14 13:15
PROVIDERS: ATTEND Family Medicine
DX: R07.9 Chest pain, unspecified (principal); I25.10 Atherosclerotic heart disease of native coronary artery without angina pectoris; I11.9 Hypertensive heart disease without heart failure; E78.5 Hyperlipidemia, unspecified; E11.9 Type 2 diabetes mellitus without complications; M06.9 Rheumatoid arthritis, unspecified; E03.9 Hypothyroidism, unspecified; K21.9 Gastro-esophageal reflux disease without esophagitis; Z82.49 Family history of ischemic heart disease and other diseases of the circulatory system; Z87.891 Personal history of nicotine dependence; F41.9 Anxiety disorder, unspecified; F32.9 Major depressive disorder, single episode, unspecified; Z88.0 Allergy status to penicillin; Z88.2 Allergy status to sulfonamides; Z88.5 Allergy status to narcotic agent; Z79.899 Other long term (current) drug therapy; Z79.82 Long term (current) use of aspirin; Z79.84 Long term (current) use of oral hypoglycemic drugs
CPT/HCPCS: 36221; 36415; 70496; 70498; 71045; 71250; 80048; 80053; 80061; 82962; 83690; 83735; 83874; 84484; 85025; 85027; 85379; 85610; 85730; 87081; 93005; 93041; 93306; 93458; 93567; G0378

== ENCOUNTER 2018-05-12 17:15 | Outpatient (RCR) | payer MEDICARE, OTHER ==
[2018-05-13] MEDS ORDERED: CALC-901 PO ×2 (11:11)
[2018-05-13] MEDS ORDERED: MELA1TAB35 PO ×2 (11:11)
[2018-05-13] MEDS ORDERED: METF-397 PO (11:11)
[2018-05-13] MEDS ORDERED: TRAM50TA2 PO ×4 (11:11)
[2018-05-13] MEDS ORDERED: QUIN40TA14 PO ×2 (11:11)
[2018-05-13] MEDS ORDERED: LABE100T6 PO ×2 (11:11)
[2018-05-13] MEDS ORDERED: TURMERIC PO ×2 (11:11)
[2018-05-13] MEDS ORDERED: MAGN500C15 PO ×2 (11:11)
[2018-05-13] MEDS ORDERED: [UNRECOGNIZED DRUG - OTHER] PO ×2 (11:11)
[2018-05-13] MEDS ORDERED: MULT-1021 PO ×2 (11:11)
[2018-05-13] MEDS ORDERED: MELO15TA39 PO ×2 (11:11)
[2018-05-13] MEDS ORDERED: DULO60CA6 PO ×2 (11:11)
[2018-05-13] MEDS ORDERED: DOCU-143 PO (11:12)
[2018-05-13] MEDS ORDERED: SENN-145 PO ×2 (11:12)
[2018-05-14] MEDS ORDERED: DOXA2TAB2 PO ×2 (08:58)
[2018-05-14] MEDS ORDERED: CLOP75TA28 PO ×2 (08:58)
[2018-05-14] MEDS ORDERED: AMLO10TA7 PO ×2 (08:58)
[2018-05-14] MEDS ORDERED: ATOR80TA64 PO ×2 (08:58)
[2018-05-14] MEDS ORDERED: METF-397 PO ×2 (08:58)
== END 2018-05-14 | disposition home or self-care (01) ==
LOC: CR3 17:15
PROVIDERS: ATTEND Nurse Practitioner Family
DX: Z29.8 Encounter for other specified prophylactic measures (principal)

== ENCOUNTER → 2018-06-25 | Outpatient (RCR) | payer MEDICARE, OTHER ==
[~2018-06-25] MED LIST changes: +AMLO10TA7 PO; +ATOR80TA64 PO; +CALC-901 PO; +CLOP75TA28 PO; +DOCU-143 PO; +DOXA2TAB2 PO; +DULO60CA6 PO; +MAGN500C15 PO; +MELA1TAB35 PO; +MELO15TA39 PO; +MULT-1021 PO; +QUIN40TA14 PO; +SENN-145 PO; +TURMERIC PO; +[UNRECOGNIZED DRUG - OTHER] PO
== END | disposition home or self-care (01) ==
LOC: CR3 05-26 11:00
PROVIDERS: ATTEND Nurse Practitioner Family
DX: Z29.8 Encounter for other specified prophylactic measures (principal)

== ENCOUNTER → 2018-07-30 | Outpatient (RCR) | payer MEDICARE, OTHER | END | disposition home or self-care (01) | LOC: CR3 06-30 11:49 | PROVIDERS: ATTEND Nurse Practitioner Family | DX: Z29.8 Encounter for other specified prophylactic measures (principal) ==

== ENCOUNTER 2018-08-13 10:58 | Outpatient (RCR) | payer MEDICARE, OTHER | END 2018-09-10 | disposition home or self-care (01) | LOC: CR3 10:58 | PROVIDERS: ATTEND Nurse Practitioner Family | DX: Z29.8 Encounter for other specified prophylactic measures (principal) ==

== ENCOUNTER 2018-10-08 10:32 | Outpatient (RCR) | payer MEDICARE, OTHER | END 2018-10-24 | disposition home or self-care (01) | LOC: CR3 10:32 | PROVIDERS: ATTEND Nurse Practitioner Family | DX: Z29.8 Encounter for other specified prophylactic measures (principal) ==

== ENCOUNTER → 2019-01-06 | Outpatient (CLI) | payer MEDICARE, OTHER ==
[2019-01-06 09:05] LABS: BASOPHILS % (AUTO) 0 % (0-10); EOSINOPHILS # (AUTO) 0.2 10^3/uL (0.0-0.3); EOSINOPHILS % (AUTO) 5 % (0-10); HEMATOCRIT 42 % (35-52); HEMOGLOBIN 13.9 G/DL (11.5-16.0); LYMPHOCYTES # (AUTO) 1.5 X 10^3 (1.0-4.0); LYMPHOCYTES % (AUTO) 34 % (12-44); MEAN CORPUSCULAR HEMOGLOBIN 31 PG (25-34); MEAN CORPUSCULAR HGB CONC 33 G/DL (32-36); MEAN CORPUSCULAR VOLUME 93 FL (80-99); MONOCYTES # (AUTO) 0.4 X 10^3 (0.0-1.0); MONOCYTES % (AUTO) 8 % (0-12); NEUTROPHILS # (AUTO) 2.4 X 10^3 (1.8-7.8); NEUTROPHILS % (AUTO) 53 % (42-75); PLATELET COUNT 249 10^3/uL (130-400); RED CELL DISTRIBUTION WIDTH 13.2 % (10.0-14.5); WHITE BLOOD COUNT 4.6 10^3/uL (4.3-11.0)
[2019-01-06 09:26] LABS: ALBUMIN 4.2 GM/DL (3.2-4.5); BILIRUBIN,TOTAL 0.4 MG/DL (0.1-1.0); CALCIUM 9.2 MG/DL (8.5-10.1); CREATININE SERUM 1.12 MG/DL (0.60-1.30); POTASSIUM 4.2 MMOL/L (3.6-5.0); TOTAL PROTEIN 6.8 GM/DL (6.4-8.2)
== END ==
LOC: LAB 08:43
PROVIDERS: ATTEND Nurse Practitioner Family
DX: I10 Essential (primary) hypertension (principal); E11.9 Type 2 diabetes mellitus without complications; E78.2 Mixed hyperlipidemia
CPT/HCPCS: 36415; 80053; 80061; 83036; 84443; 85025

== ENCOUNTER → 2019-02-02 | Outpatient (CLI) | payer MEDICARE, OTHER ==
--- NOTE | 2019-02-03 12:31 | Diagnostic Imaging Report ---
INDICATION: Routine screening. Comparison is made with prior mammograms from 01/30/2018 and 01/29/2017. 2-D and 3-D bilateral screening mammography was performed. The current study was also evaluated with a Computer Aided Detection (CAD) system. 3-D tomosynthesis was also performed and reviewed. FINDINGS: Scattered fibroglandular densities are identified bilaterally. Benign-appearing densities in both breasts, previously noted remain stable. No new mass or malignant-appearing microcalcifications are seen. IMPRESSION: No mammographic features suspicious for malignancy are identified. ACR BI-RADS Category 2: Benign findings. Result letter will be mailed to the patient. Note: At least 10% of breast cancer is not imaged by mammography. Dictated by: Dictated on workstation # [id number]
== END ==
LOC: RAD 11:23 → MERGE 11:23
PROVIDERS: ATTEND Nurse Practitioner Family
DX: Z12.31 Encounter for screening mammogram for malignant neoplasm of breast (principal)
CPT/HCPCS: 77067

== ENCOUNTER 2019-02-09 04:38 | Emergency (ER) | payer MEDICARE, OTHER ==
[~2019-02-09] VITALS: Ht 157 cm; Wt 79.0 kg
[2019-02-09] MEDS ORDERED: methylPREDNISolone 125 MG (Solu-MEDROL) VIAL IV STA (05:08)
[2019-02-09] MEDS ORDERED: RT-ALBUTEROL/IPRATROPIUM 3 ML (DUONEB) VIAL INH ONE (05:15)
--- NOTE | 2019-02-09 05:17 | ED General ---
General Stated Complaint: COUGHING, SOA, MIGRAINE, BODY ACHES Source of Information: Patient History of Present Illness Date Seen by Provider: Feb 09, 2019 Time Seen by Provider: 05:00 Initial Comments PT ARRIVES VIA POV FROM HOME STATES SHE BEGAN HAVING FLU LIKE SYMPTOMS ON SATURDAY--FEVER, BODY ACHES, NON- PRODUCTIVE COUGH, HEADACHE RX FOR TAMIFLU CALLED IN BY DR. PAUL'S OFFICE ON SATURDAY. 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 PCP: DR. PAUL Allergies and Home Medications Allergies Coded Allergies: Sulfa (Sulfonamide Antibiotics) (Verified Allergy, Unknown, 03/05/08) codeine (Verified Allergy, Unknown, Pt takes Tramadol at home, 05/13/18) meperidine (Verified Allergy, Unknown, 03/05/08) morphine (Verified Allergy, Unknown, Pt takes Tramadol at home, 05/13/18) penicillin G (Verified Allergy, Unknown, 03/05/08) Home Medications Albuterol Sulfate 2.5 Mg/3 Ml Vial.neb, 2.5 MG IH Q4H Prescribed by: IRINA LEDESMA on 02/09/19619 Amlodipine Besylate 10 Mg Tablet, 10 MG PO DAILY Prescribed by: MARIO PAUL on 05/14/18857 Aspirin 81 Mg Tablet.dr, 81 MG PO Q48H, (Reported) Atorvastatin Calcium 80 Mg Tablet, 80 MG PO DAILY Prescribed by: MARIO PAUL on 05/14/18857 Benzonatate 100 Mg Capsule, 1-2 TAB PO TID Prescribed by: IRINA LEDESMA on 02/09/19619 Calcium Carbonate/Vitamin D3 1 Each Tablet, 1 TAB PO BID, (Reported) Cefdinir 300 Mg Capsule, 300 MG PO BID Prescribed by: IRINA LEDESMA on 02/09/19619 Clopidogrel Bisulfate 75 Mg Tablet, 75 MG PO DAILY Prescribed by: MARIO PAUL on 05/14/18 0858 D-Methorphan Hb/Prometh HCl 118 Ml Syrup, 1-2 TSP PO Q4H Prescribed by: IRINA LEDESMA on 02/09/19619 Doxazosin Mesylate 2 Mg Tablet, 2 MG PO HS Prescribed by: MARIO PAUL on 05/14/18 08 Doxycycline Monohydrate 100 Mg Capsule, 100 MG PO BID Prescribed by: IRINA LEDESMA on 02/09/19619 Duloxetine HCl 60 Mg Capsule.dr, 60 MG PO DAILY, (Reported) Labetalol HCl 100 Mg Tablet, 100 MG PO BID, (Reported) Levothyroxine Sodium 75 Mcg Tablet, 75 MCG PO DAILY, (Reported) Magnesium Oxide 500 Mg Capsule, 500 MG PO HS, (Reported) Melatonin/Lemon [place] Extr 1 Each Tablet, 1 TAB PO HS, (Reported) Meloxicam 15 Mg Tablet, 15 MG PO DAILY, (Reported) Metformin HCl 500 Mg Tablet, 500 MG PO BID RESTART THIS MEDICATION ON 05/16/18 IN THE MORNING Prescribed by: MARIO PAUL on 05/14/18857 Methylprednisolone 4 Mg Tab.ds.pk, 4 MG PO UD Prescribed by: IRINA LEDESMA on 02/09/19619 Multivits-Min/Iron/FA/Lutein 1 Each Tablet, 1 TAB PO DAILY, (Reported) Ondansetron 8 Mg Tab.rapdis, 8 MG PO Q6H PRN for NAUSEA/VOMITING-1ST LINE Prescribed by: SIENNA COX on 05/10/18 1643 Quinapril HCl 40 Mg Tablet, 40 MG PO HS, (Reported) Sennosides/Docusate Sodium 1 Each Tablet, 2 TAB PO Q48H@2100, (Reported) Tramadol HCl 50 Mg Tablet, 50 MG PO BID PRN for PAIN-MODERATE, (Reported) Tramadol HCl 50 Mg Tablet, 50 MG PO HS, (Reported) [[place] 3/Turmeric] , 1 CAP PO BID, (Reported) Patient Home Medication List Home Medication List Reviewed: Yes Review of Systems Review of Systems Constitutional: see HPI, fever, malaise, weakness EENTM: nose congestion; No blurred vision Respiratory: see HPI, cough, phlegm, short of breath; No wheezing Cardiovascular: other (CHEST FEELS A LITTLE TIGHT) Gastrointestinal: no symptoms reported Genitourinary: no symptoms reported Musculoskeletal: see HPI, joint pain, muscle pain Skin: no symptoms reported Psychiatric/Neurological: See HPI, Headache; Denies Paresthesia, Denies Seizure, Denies Tingling, Denies Weakness Hematologic/Lymphatic: No Symptoms Reported Immunological/Allergic: no symptoms reported Past Vtkzjdn-Ggptcj-Tymidm Hx Past Med/Social Hx: Reviewed and Corrections made Patient Social History Alcohol Use: Occasionally Uses Alcohol Beverage of Choice: Wine Recreational Drug Use: No Smoking Status: Never a Smoker 2nd Hand Smoke Exposure: No Recent Foreign Travel: No Contact w/Someone Who Travel: No Recent Hopitalizations: No Immunizations Up To Date Tetanus Booster (TDap): More than 5yrs Date of Pneumonia Vaccine: Apr 08, 2012 Date of Influenza Vaccine: Feb 09, 2018 Seasonal Allergies Seasonal Allergies: No Past Medical History Surgeries: Yes (LEFT RIB LIPOMA; CARDIAC CATH 05/13/18--NO INTERVENTION) Adenoidectomy, Appendectomy, Cardiac, Gallbladder, Hysterectomy, Oophorectomy, Orthopedic, Tonsillectomy Respiratory: No Cardiac: Yes (BRADYCARDIA; CARDIAC CATH 05/13/18--MODERATE CAD/NON-OCCLUSIVE, EF 65%--NO INTERVENTION) Coronary Artery Disease, Heart Murmur, High Cholesterol, Hypertension Neurological: Yes (RARE MIGRAINES) Headaches /Migraines 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, 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 Sexually Transmitted Disease: No HIV/AIDS: No Genitourinary: No Gastrointestinal: No Musculoskeletal: Yes Osteoporosis, Arthritis, Rheumatoid Arthritis Endocrine: Yes Hypothyroidsim, Diabetes, Non-Insulin dep HEENT: No Loss of Vision: Denies Hearing Impairment: Denies Cancer: No Psychosocial: Yes Depression Integumentary: No Blood Disorders: No Adverse Reaction/Blood Tranf: No Family Medical History Cardiovascular disease 19 MOTHER, Onset:50's - 60 G8 BROTHER, Onset:30's - 40 G8 BROTHER, Onset:40's - 50 G8 BROTHER, Onset:30's - 40 Colon cancer 19 FATHER Diabetes mellitus 19 FATHER G8 SISTER, Onset:40's - 50 G8 SISTER G8 BROTHER Myocardial infarction G8 SISTER G8 SISTER Heart Disease, Cancer, Diabetes, Hypertension Physical Exam Vital Signs Vital Signs - First Documented Capillary Refill : Height, Weight, BMI Height: 5'1.00" Weight: 191lbs. 0.0oz. 86.223215tv; 36.1 BMI Method:Stated General Appearance: No Apparent Distress, WD/WN, Other (LOOKS MILDLY ILL) HEENT: PERRL/EOMI, TMs Normal, Pharynx Normal, Other (MILD NASAL CONGESTION AND CLEAR POST NASAL DRAINAGE, MILD LEFT PERIORBITAL TENDERNESS. ) Neck: Full Range of Motion, Normal Inspection, Non Tender, Supple Respiratory: Normal Breath Sounds, No Accessory Muscle Use, No Respiratory Distress Cardiovascular: Regular Rate, Rhythm, No Edema, No JVD, No Murmur, Normal Peripheral Pulses Gastrointestinal: Normal Bowel Sounds, No Organomegaly, No Pulsatile Mass, Non Tender, Soft Back: Normal Inspection, No CVA Tenderness, No Vertebral Tenderness Extremity: Normal Capillary Refill, Normal Inspection, Normal Range of Motion, Non Tender, No Calf Tenderness, No Pedal Edema Neurologic/Psychiatric: Alert, Oriented x3, No Motor/Sensory Deficits, 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 Norm as Tested Skin: Normal Color, Warm/Dry; No Rash Focused Exam Lactate Level 02/09/19 05:20: Lactic Acid Level 0.86 Lactic Acid Level Progress/Results/Core Measures Suspected Sepsis SIRS Temperature: Pulse: Respiratory Rate: Laboratory Tests 02/09/19 05:20: White Blood Count 8.8 Blood Pressure / Mean: 02/09/19 05:20: Lactic Acid Level 0.86 Laboratory Tests 02/09/19 05:20: Creatinine 1.10, INR Comment 0.9, Platelet Count 239, Total Bilirubin 0.5 Results/Orders Lab Results Laboratory Tests Test 02/09/19 05:20 02/09/19 06:44 Range/Units White Blood Count 8.8 4.3-11.0 10^3/uL Red Blood Count 4.72 4.35-5.85 10^6/uL Hemoglobin 14.3 11.5-16.0 G/DL Hematocrit 44 35-52 % Mean Corpuscular Volume 94 80-99 FL Mean Corpuscular Hemoglobin 30 25-34 PG Mean Corpuscular Hemoglobin Concent 32 32-36 G/DL Red Cell Distribution Width 13.8 10.0-14.5 % Platelet Count 239 130-400 10^3/uL Mean Platelet Volume 9.7 7.4-10.4 FL Neutrophils (%) (Auto) 75 42-75 % Lymphocytes (%) (Auto) 17 12-44 % Monocytes (%) (Auto) 6 0-12 % Eosinophils (%) (Auto) 3 0-10 % Basophils (%) (Auto) 0 0-10 % Neutrophils # (Auto) 6.6 1.8-7.8 X 10^3 Lymphocytes # (Auto) 1.5 1.0-4.0 X 10^3 Monocytes # (Auto) 0.5 0.0-1.0 X 10^3 Eosinophils # (Auto) 0.2 0.0-0.3 10^3/uL Basophils # (Auto) 0.0 0.0-0.1 10^3/uL Prothrombin Time 12.9 12.2-14.7 SEC INR Comment 0.9 0.8-1.4 Activated Partial Thromboplast Time 34 24-35 SEC Sodium Level 140 135-145 MMOL/L Potassium Level 3.8 3.6-5.0 MMOL/L Chloride Level 102 98-107 MMOL/L Carbon Dioxide Level 24 21-32 MMOL/L Anion Gap 14 5-14 MMOL/L Blood Urea Nitrogen 17 7-18 MG/DL Creatinine 1.10 0.60-1.30 MG/DL Estimat Glomerular Filtration Rate 49 BUN/Creatinine Ratio 15 Glucose Level 128 H 70-105 MG/DL Lactic Acid Level 0.86 0.50-2.00 MMOL/L Calcium Level 9.5 8.5-10.1 MG/DL Corrected Calcium 9.3 8.5-10.1 MG/DL Magnesium Level 1.9 1.6-2.4 MG/DL Total Bilirubin 0.5 0.1-1.0 MG/DL Aspartate Amino Transf (AST/SGOT) 16 5-34 U/L Alanine Aminotransferase (ALT/SGPT) 14 0-55 U/L Alkaline Phosphatase 76 40-136 U/L Troponin I < 0.028 <0.028 NG/ML B-Type Natriuretic Peptide 46.4 <100.0 PG/ML Total Protein 7.2 6.4-8.2 GM/DL Albumin 4.2 3.2-4.5 GM/DL Urine Color YELLOW Urine Clarity CLEAR Urine pH 6.5 5-9 Urine Specific [place] 1.005 L 1.016-1.022 Urine Protein NEGATIVE NEGATIVE Urine Glucose (UA) 4+ H NEGATIVE Urine Ketones NEGATIVE NEGATIVE Urine Nitrite NEGATIVE NEGATIVE Urine Bilirubin NEGATIVE NEGATIVE Urine Urobilinogen NORMAL NORMAL MG/DL Urine Leukocyte Esterase NEGATIVE NEGATIVE Urine RBC (Auto) 1+ H NEGATIVE Urine RBC 0-2 /HPF Urine WBC NONE /HPF Urine Squamous Epithelial Cells RARE /HPF Urine Crystals NONE /LPF Urine Bacteria NEGATIVE /HPF Urine Casts NONE /LPF Urine Mucus SMALL H /LPF Urine Culture Indicated NO Micro Results Microbiology 02/09/19 Influenza Types A,B Antigen (SHARATH) - Final, Complete My Orders Orders - IRINA LEDESMA DO Ed Iv/Invasive Line Start (02/09/19 05:08) Ekg Tracing (02/09/19 05:08) Monitor-Rhythm Ecg Trace Only (02/09/19 05:08) Chest Pa/Lat (2 View) (02/09/19 05:08) BNP (02/09/19 05:08) Cbc With Automated Diff (02/09/19 05:08) Comprehensive Metabolic Panel (02/09/19 05:08) Lactic Acid Analyzer (02/09/19 05:08) Magnesium (02/09/19 05:08) Protime With Inr (02/09/19 05:08) Partial Thromboplastin Time (02/09/19 05:08) Ua Culture If Indicated (02/09/19 05:08) Blood Culture (02/09/19 05:08) Influenza A And B Antigens (02/09/19 05:08) Troponin I (02/09/19 05:08) Albuterol/Ipra Inhalation Soln (Duoneb I (02/09/19 05:15) Rt Request For Service (02/09/19 05:08) Methylprednisolone Sod Succ (Solu-Medrol (02/09/19 05:08) Svn Small Volume Nebulizer (02/09/19 05:08) Ceftriaxone For Iv Use (Rocephin For I (02/09/19 06:15) Doxycycline Hyclate Tablet (Vibramycin T (02/09/19 06:15) Medications Given in ED Current Medications Medications Dose Ordered Sig/Winifred Route Start Time Stop Time Status Last Admin Dose Admin Ceftriaxone Sodium 1000 mg/ Sterile Water 10 ml @ 200 mls/hr ONCE ONCE IV 02/09/19 06:15 02/09/19 06:17 DC 02/09/19 06:38 200 MLS/HR Vital Signs/I&O 02/09/19 06:39 Temp 37.1 Pulse 75 Resp 22 B/P (MAP) 131/86 (116) Pulse Ox 98 O2 Delivery Room Air Capillary Refill : Progress Note : Progress Note O2 SATS 98-100% ON ROOM AIR. GIVEN SOLU-MEDROL AND NEB TREATMENT WITH SOME IMPROVEMENT IN SUBJECTIVE FEELING OF SHORTNESS OF BREATH, AND AT DISMISSAL, IS BEGINNING TO FEEL BETTER OVERALL--LESS BODY AND JOINT PAIN, HEADACHE IS BETTER PT STATES SHE DOES HAVE A NEBULIZER AT HOME, BUT NO MEDICATION FOR IT ECG Initial ECG Impression Date: Feb 09, 2019 Initial ECG Impression Time: 05:31 Initial ECG Rate: 67 Initial ECG Rhythm: Normal Sinus Diagnostic Imaging Comments CXR--NO ACUTE PROCESS, PENDING RADIOLOGIST REVIEW Reviewed: Reviewed by Me Departure Impression Primary Impression: Bronchitis Disposition: 01 HOME, SELF-CARE Condition: Stable Departure-Patient Inst. Referrals: MARIO PAUL MD (PCP/Family) Primary Care Physician Patient Instructions: Acute Bronchitis, Adult (DC) Add. Discharge Instructions: LOTS OF CLEAR LIQUIDS TYLENOL AND MOTRIN NEEDED FOR PAIN OR FEVER FOLLOW UP WITH DR. PAUL IN 2-3 DAYS FOR FURTHER CARE Scripts Benzonatate (TESSALON PERLES) 100 Mg Capsule 1-2 TAB PO TID for Cough, #30 CAP Prov: IRINA LEDESMA DO 02/09/19 D-Methorphan Hb/Prometh HCl (Promethazine-Dm Syrup) 118 Ml Syrup 1-2 TSP PO Q4H for Cough, #120 ML Prov: IRINA LEDESMA DO 02/09/19 Methylprednisolone (Medrol) 4 Mg Tab.ds.pk 4 MG PO UD, #1 PKG Prov: BALTAZARIRINA K DO 02/09/19 Doxycycline Monohydrate (Doxycycline Monohydrate) 100 Mg Capsule 100 MG PO BID, #20 CAP Prov: BALTAZARIRINA K DO 02/09/19 Cefdinir (Cefdinir) 300 Mg Capsule 300 MG PO BID for FOR INFECTION, #20 CAP Prov: BALTAZARFAVIANA K DO 02/09/19 Albuterol Sulfate (Albuterol Sulfate) 2.5 Mg/3 Ml Vial.neb 2.5 MG IH Q4H, #1 EA Prov: BALTAZARFAVIANA K DO 02/09/19 IRINA LEDESMA DO Feb 09, 2019 05:17 POS
[2019-02-09 05:35] LABS: BASOPHILS % (AUTO) 0 % (0-10); EOSINOPHILS # (AUTO) 0.2 10^3/uL (0.0-0.3); EOSINOPHILS % (AUTO) 3 % (0-10); HEMATOCRIT 44 % (35-52); HEMOGLOBIN 14.3 G/DL (11.5-16.0); LYMPHOCYTES # (AUTO) 1.5 X 10^3 (1.0-4.0); LYMPHOCYTES % (AUTO) 17 % (12-44); MEAN CORPUSCULAR HEMOGLOBIN 30 PG (25-34); MEAN CORPUSCULAR HGB CONC 32 G/DL (32-36); MEAN CORPUSCULAR VOLUME 94 FL (80-99); MEAN PLATELET VOLUME 9.7 FL (7.4-10.4); MONOCYTES # (AUTO) 0.5 X 10^3 (0.0-1.0); MONOCYTES % (AUTO) 6 % (0-12); NEUTROPHILS # (AUTO) 6.6 X 10^3 (1.8-7.8); NEUTROPHILS % (AUTO) 75 % (42-75); PLATELET COUNT 239 10^3/uL (130-400); RED CELL DISTRIBUTION WIDTH 13.8 % (10.0-14.5); WHITE BLOOD COUNT 8.8 10^3/uL (4.3-11.0)
[2019-02-09 05:48] LABS: INR 0.9 (0.8-1.4); PROTHROMBIN TIME PATIENT 12.9 SEC (12.2-14.7)
[2019-02-09 05:56] LABS: ALANINE AMINOTRANSFERASE 14 U/L (0-55); ALBUMIN 4.2 GM/DL (3.2-4.5); ALKALINE PHOSPHATASE 76 U/L (40-136); BILIRUBIN,TOTAL 0.5 MG/DL (0.1-1.0); BUN/CREATININE RATIO 15; CALCIUM 9.5 MG/DL (8.5-10.1); CARBON DIOXIDE 24 MMOL/L (21-32); CHLORIDE 102 MMOL/L (98-107); GFR ESTIMATED 49; GLUCOSE 128 MG/DL (70-105); MAGNESIUM 1.9 MG/DL (1.6-2.4); POTASSIUM 3.8 MMOL/L (3.6-5.0); SODIUM 140 MMOL/L (135-145); TOTAL PROTEIN 7.2 GM/DL (6.4-8.2)
[2019-02-09] MEDS ORDERED: DOXYCYCLINE 100 MG (VIBRAMYCIN) TABLET PO SCH (06:15)
[2019-02-09] MEDS ORDERED: cefTRIAXone FOR IV USE 1,000 MG in WATER (STERILE) FOR INJECTION 10 ML IV ONE (06:15)
[2019-02-09] MEDS ORDERED: CEFD300C3 PO (06:20)
[2019-02-09] MEDS ORDERED: BENZ100C18 PO (06:20)
[2019-02-09] MEDS ORDERED: ALBU2.5V4 IH (06:20)
[2019-02-09] MEDS ORDERED: PROM118S4 PO (06:20)
[2019-02-09] MEDS ORDERED: METH4TAB PO (06:20)
[2019-02-09] MEDS ORDERED: DOXY100C42 PO (06:20)
[2019-02-09 06:39] VITALS: BP 131/86
--- NOTE | 2019-02-09 06:44 | Diagnostic Imaging Report ---
EXAMINATION: CHEST (PA AND LATERAL) CLINICAL INDICATION: 68-year-old female, cough and shortness of breath. COMPARISON: May 12, 2018. FINDINGS: Heart size is within normal limits. There is a right-sided aortic arch. There is no identified pneumothorax. There is no pleural effusion. There is no identified focal airspace consolidation. IMPRESSION: No identified acute cardiopulmonary abnormality. Dictated by: Dictated on workstation # [id number]
[2019-02-09 07:02] LABS: BACTERIA,URINE NEGATIVE /HPF; BILIRUBIN,URINE NEGATIVE (NEGATIVE); CLARITY,URINE CLEAR; COLOR,URINE YELLOW; GLUCOSE, URINE (UA) 4+ (NEGATIVE); KETONES,URINE NEGATIVE (NEGATIVE); LEUKOCYTE ESTERASE ,URINE NEGATIVE (NEGATIVE); NITRITE,URINE NEGATIVE (NEGATIVE); PH,URINE 6.5 (5-9); PROTEIN,URINE NEGATIVE (NEGATIVE); RBC,URINE 0-2 /HPF; SQUAMOUS EPITHELIAL CELL,UR RARE /HPF
== END 2019-02-09 06:46 | disposition home or self-care (01) ==
LOC: EDUNIT# 04:38 → ER 04:39
DX: J40 Bronchitis, not specified as acute or chronic (principal); E11.9 Type 2 diabetes mellitus without complications; I10 Essential (primary) hypertension; E78.00 Pure hypercholesterolemia, unspecified; I25.10 Atherosclerotic heart disease of native coronary artery without angina pectoris; G43.909 Migraine, unspecified, not intractable, without status migrainosus; M06.9 Rheumatoid arthritis, unspecified; E03.9 Hypothyroidism, unspecified; F32.9 Major depressive disorder, single episode, unspecified; Z95.9 Presence of cardiac and vascular implant and graft, unspecified; Z88.2 Allergy status to sulfonamides; Z88.5 Allergy status to narcotic agent; Z88.0 Allergy status to penicillin; Z79.82 Long term (current) use of aspirin; Z79.02 Long term (current) use of antithrombotics/antiplatelets; Z79.84 Long term (current) use of oral hypoglycemic drugs; Z90.49 Acquired absence of other specified parts of digestive tract; Z90.89 Acquired absence of other organs; Z90.710 Acquired absence of both cervix and uterus; Z82.49 Family history of ischemic heart disease and other diseases of the circulatory system; Z80.0 Family history of malignant neoplasm of digestive organs
CPT/HCPCS: 36415; 71046; 80053; 81000; 83605; 83735; 83880; 84484; 85025; 85610; 85730; 87040; 87804; 93005; 93041; 94640

== ENCOUNTER 2019-02-18 10:46 | Outpatient (RCR) | payer MEDICARE, OTHER ==
[~2019-02-18 10:46] MED LIST changes: +ALBU2.5V4 IH; +BENZ100C18 PO; +DOXY100C42 PO; +METH4TAB PO; +PROM118S4 PO
== END 2019-02-20 | disposition home or self-care (01) ==
LOC: CR3 10:46
PROVIDERS: ATTEND Nurse Practitioner Family
DX: Z29.8 Encounter for other specified prophylactic measures (principal)

== ENCOUNTER 2019-03-18 09:41 | Outpatient (RCR) | payer MEDICARE, OTHER ==
[~2019-03-18 09:41] MED LIST changes: -TRAM50TA2 PO; +TRM50T PO
== END 2019-04-15 | disposition home or self-care (01) ==
LOC: CR3 09:41
PROVIDERS: ATTEND Nurse Practitioner Family
DX: Z29.8 Encounter for other specified prophylactic measures (principal)

== ENCOUNTER → 2020-02-05 | Outpatient (CLI) | payer MEDICARE, OTHER ==
[~2020-02-05] MED LIST changes: +AMLO-251 PO; -AMLO10TA7 PO; +ASPI-1238 PO; -ASPI-983 PO; -IBUP-2055 PO; +IBUP-2473 PO; -PROM118S4 PO; +PROM118S5 PO
--- NOTE | 2020-02-05 11:32 | Diagnostic Imaging Report ---
EXAM: Digital mammogram bilateral screening COMPARISONS: This study was compared to the prior exams of 01/25/2019, 01/30/2018 and 01/29/2017. The current study was also evaluated with a Computer Aided Detection (CAD) system. FINDINGS: The fibroglandular tissue in both breasts is heterogeneously dense. This does limit the sensitivity of this exam. No primary or secondary sign of malignancy is noted. IMPRESSION: There is no radiographic evidence for malignancy. ACR BI-RADS Category 1: Negative. Result letter will be mailed to the patient. Note: At least 10% of breast cancer is not imaged by mammography. Dictated by: Dictated on workstation # [id number]
== END ==
LOC: RAD 09:57
PROVIDERS: ATTEND Nurse Practitioner Family
DX: Z12.31 Encounter for screening mammogram for malignant neoplasm of breast (principal)
CPT/HCPCS: 77063; 77067

== ENCOUNTER → 2020-12-30 | Outpatient (CLI) | payer MEDICARE, OTHER ==
[~2020-12-30] MED LIST changes: +DOXY-311 PO; -DOXY100C42 PO
== END ==
LOC: LABNPT 08:00
DX: Z20.822 Contact with and (suspected) exposure to COVID-19 (principal)
CPT/HCPCS: 87635

== ENCOUNTER 2021-01-17 16:59 | Emergency (ER) | payer MEDICARE, OTHER ==
[~2021-01-17] VITALS: Ht 155 cm; Wt 77.0 kg
--- NOTE | 2021-01-17 17:35 | Diagnostic Imaging Report ---
INDICATION: Pain in left knee. TIME OF EXAM: 05:29 p.m. 3 views left knee were obtained. FINDINGS: There are postop changes of total knee arthroplasty. Prosthetic elements appear to be in good position without fracture or loosening. No fracture, dislocation or effusion is seen. IMPRESSION: Postoperative changes. No acute abnormality is detected. Dictated by: Dictated on workstation # [id number]
--- NOTE | 2021-01-17 17:38 | ED Lower Extremity ---
General Chief Complaint: Lower Extremity Stated Complaint: LOWER EXTREMITY History of Present Illness Date Seen by Provider: Jan 17, 2021 Time Seen by Provider: 17:15 Initial Comments 70-year-old female presents via EMS for pain in her left knee. She had a left total knee replacement approximately 2 weeks ago. She denies any falls or injuries to her knee. She reports pain intermittently in it, she is taking tramadol for pain and last dose was this morning. She reports walking in her house today when she felt a pulling sensation to the lateral aspect of her knee and had immediate onset of pain. She did NOT fall, but leaned against her counter because of the pain. She has been using a walker or cane, as needed. She is going to PT. Onset: this afternoon Pain/Injury Location: left knee Method of Injury: unknown Allergies and Home Medications Allergies Coded Allergies: Sulfa (Sulfonamide Antibiotics) (Verified Allergy, Unknown, 03/05/08) codeine (Verified Allergy, Unknown, Pt takes Tramadol at home, 05/13/18) meperidine (Verified Allergy, Unknown, 03/05/08) morphine (Verified Allergy, Unknown, Pt takes Tramadol at home, 05/13/18) penicillin G (Verified Allergy, Unknown, 03/05/08) Patient Home Medication List Home Medication List Reviewed: Yes Albuterol Sulfate (Albuterol Sulfate) 2.5 Mg/3 Ml Vial.neb, 2.5 MG IH Q4H Prescribed by: IRINA LEDESMA on 02/09/19 0620 Amlodipine Besylate (Amlodipine Besylate) 10 Mg Tablet, 10 MG PO DAILY Prescribed by: MARIO PAUL on 05/14/18 0858 Aspirin (Aspirin EC) 81 Mg Tablet.dr, 81 MG PO Q48H, (Reported) Entered as Reported by: CAITY EDUARDO on 01/31/15 0939 Atorvastatin Calcium (Lipitor) 80 Mg Tablet, 80 MG PO DAILY Prescribed by: MARIO PAUL on 05/14/18 0858 Benzonatate (Tessalon Perles) 100 Mg Capsule, 1-2 TAB PO TID Prescribed by: IRINA LEDESMA on 02/09/19 0620 Calcium Carbonate/Vitamin D3 (Calcium 600 + Vit D 800 Tab) 1 Each Tablet, 1 TAB PO BID, (Reported) Entered as Reported by: CAITY EDUARDO on 05/13/18 1111 Cefdinir (Cefdinir) 300 Mg Capsule, 300 MG PO BID Prescribed by: IRINA LEDESMA on 02/09/19619 Clopidogrel Bisulfate (Clopidogrel) 75 Mg Tablet, 75 MG PO DAILY Prescribed by: MARIO PAUL on 05/14/18 08 D-Methorphan Hb/Prometh HCl (Promethazine-Dm Syrup) 118 Ml Syrup, 1-2 TSP PO Q4H Prescribed by: IRINA LEDESMA on 02/09/19619 Doxazosin Mesylate (Doxazosin Mesylate) 2 Mg Tablet, 2 MG PO HS Prescribed by: MARIO PAUL on 05/14/18 08 Doxycycline Monohydrate (Doxycycline Monohydrate) 100 Mg Capsule, 100 MG PO BID Prescribed by: IRINA LEDESMA on 02/09/19619 Duloxetine HCl (Cymbalta) 60 Mg Capsule.dr, 60 MG PO DAILY, (Reported) Entered as Reported by: CAITY EDUARDO on 05/13/18 1111 Labetalol HCl (Labetalol HCl) 100 Mg Tablet, 100 MG PO BID, (Reported) Entered as Reported by: CAITY EDUARDO on 05/13/18 1111 Levothyroxine Sodium (Synthroid) 75 Mcg Tablet, 75 MCG PO DAILY, (Reported) Entered as Reported by: MASON KIM on 01/30/15 1210 Magnesium Oxide (Magnesium) 500 Mg Capsule, 500 MG PO HS, (Reported) Entered as Reported by: CAITY EDUARDO on 05/13/18 1111 Melatonin/Lemon [place] Extr (Melatonin-Lemon [place] Tablet) 1 Each Tablet, 1 TAB PO HS, (Reported) Entered as Reported by: CAITY EDUARDO on 05/13/18 1111 Meloxicam (Meloxicam) 15 Mg Tablet, 15 MG PO DAILY, (Reported) Entered as Reported by: CAITY EDUARDO on 05/13/18 1111 Metformin HCl (Metformin HCl) 500 Mg Tablet, 500 MG PO BID Prescribed by: MARIO PAUL on 05/14/18 0858 Methylprednisolone (Medrol) 4 Mg Tab.ds.pk, 4 MG PO UD Prescribed by: IRINA LEDESMA on 02/09/19 06 Multivits-Min/Iron/FA/Lutein (Centrum Silver Women Tablet) 1 Each Tablet, 1 TAB PO DAILY, (Reported) Entered as Reported by: CAITY EDUARDO on 05/13/18 1111 Ondansetron (Ondansetron Odt) 8 Mg Tab.rapdis, 8 MG PO Q6H PRN for NAUSEA/VOMITING-1ST LINE Prescribed by: SIENNA COX on 05/10/18 1643 Quinapril HCl (Quinapril HCl) 40 Mg Tablet, 40 MG PO HS, (Reported) Entered as Reported by: CAITY EDUARDO on 05/13/18 1111 Sennosides/Docusate Sodium ([place]enna S Tablet) 1 Each Tablet, 2 TAB PO Q48H@2100, (Reported) Entered as Reported by: CATIY EDUARDO on 05/13/18 1112 Tramadol HCl (Tramadol HCl) 50 Mg Tablet, 50 MG PO BID PRN for PAIN-MODERATE, (Reported) Entered as Reported by: CAITY EDUARDO on 05/13/18 1111 Tramadol HCl (Tramadol HCl) 50 Mg Tablet, 50 MG PO HS, (Reported) Entered as Reported by: CAITY EDUARDO on 05/13/18 1111 [[place] 3/Turmeric] , 1 CAP PO BID, (Reported) Entered as Reported by: CAITY EDUARDO on 05/13/18 1111 Review of Systems Constitutional: no symptoms reported Musculoskeletal: see HPI, joint pain (Left knee) All Other Systems Reviewed Negative Unless Noted: Yes Past Rjodzrt-Sxfszp-Rvrerq Hx Immunizations Up To Date Tetanus Booster (TDap): More than 5yrs Seasonal Allergies Seasonal Allergies: No Past Medical History Surgeries: Yes (LEFT RIB LIPOMA; CARDIAC CATH 05/13/18--NO INTERVENTION) Adenoidectomy, Appendectomy, Cardiac, Gallbladder, Hysterectomy, Oophorectomy, Orthopedic, Tonsillectomy Respiratory: No Cardiac: Yes Coronary Artery Disease, Heart Murmur, High Cholesterol, Hypertension Neurological: Yes (RARE MIGRAINES) Headaches /Migraines 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, 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 Sexually Transmitted Disease: No HIV/AIDS: No Genitourinary: No Gastrointestinal: No Musculoskeletal: Yes Osteoporosis, Arthritis, Rheumatoid Arthritis Endocrine: Yes Hypothyroidsim, Diabetes, Non-Insulin dep HEENT: No Loss of Vision: Denies Hearing Impairment: Denies Cancer: No Psychosocial: Yes Depression Integumentary: No Blood Disorders: No Adverse Reaction/Blood Tranf: No Family Medical History Reviewed Nursing Family Hx Cardiovascular disease 19 MOTHER, Onset:50's - 60 G8 BROTHER, Onset:30's - 40 G8 BROTHER, Onset:40's - 50 G8 BROTHER, Onset:30's - 40 Colon cancer 19 FATHER Diabetes mellitus 19 FATHER G8 SISTER, Onset:40's - 50 G8 SISTER G8 BROTHER Myocardial infarction G8 SISTER G8 SISTER Heart Disease, Cancer, Diabetes, Hypertension Physical Exam Vital Signs Vital Signs - First Documented 01/17/21 17:06 Temp 37.1 Pulse 80 Resp 18 B/P (MAP) 169/95 (119) Pulse Ox 100 O2 Delivery Room Air Capillary Refill : Height, Weight, BMI Height: 5'1.00" Weight: 191lbs. 0.0oz. 86.293867xg; 32.00 BMI Method:Stated General Appearance: WD/WN, no apparent distress Cardiovascular: normal peripheral pulses, regular rate, rhythm, no edema Respiratory: chest non-tender, lungs clear, normal breath sounds Knees: left knee normal inspection, left knee bone tenderness (Lateral proximal tibia), left knee soft tissue tenderness, left knee swelling (Trace), left knee other (No erythema, warmth or drainage. Anterior incision well-healed.) Neurologic/Psychiatric: no motor/sensory deficits, alert, normal mood/affect, oriented x 3 Skin: normal color, warm/dry Progress/Results/Core Measures Results/Orders My Orders Orders - DWIGHT SHULTZ Knee, Left, 3 Views (01/17/21 17:13) Hydrocodone/Apap 7.5/325 Tab (Lortab 7. (01/17/21 18:09) Vital Signs/I&O 01/17/21 01/17/21 17:06 18:38 Temp 37.1 Pulse 80 83 Resp 18 18 B/P (MAP) 169/95 (119) 173/96 Pulse Ox 100 100 O2 Delivery Room Air Room Air Progress Progress Note : Time: 17:15 Progress Note Patient seen and evaluated, will obtain x-rays. Knee elevated on a pillow. Hydrocodone 7.5/325mg for pain. 1750 x-ray results reviewed with the patient and her daughter. No acute findings. Discharge instructions and follow-up precautions reviewed. Diagnostic Imaging Diagonstic Imaging: Xray Plain Films/CT/US/NM/MRI: knee Comments NAME: VITO LESTER [facility] REC#: [id number] PT STATUS: REG ER : 1950 PHYSICIAN: DWIGHT SHULTZ ADMIT DATE: 01/17/21/ER Draft Date of Exam:01/17/21 KNEE, LEFT, 3 VIEWS INDICATION: Pain in left knee. TIME OF EXAM: 05:29 p.m. 3 views left knee were obtained. FINDINGS: There are postop changes of total knee arthroplasty. Prosthetic elements appear to be in good position without fracture or loosening. No fracture, dislocation or effusion is seen. IMPRESSION: Postoperative changes. No acute abnormality is detected. Dictated on workstation # [id number] Dict: [id number] Trans: 01/17/21 173 [id number] Interpreted by: TESFAYE VILLAGOMEZ Reviewed: Reviewed by Me Departure Impression Primary Impression: History of left knee replacement Additional Impression: Left knee pain Qualified Codes: M25.562 - Pain in left knee Disposition: 01 HOME, SELF-CARE Condition: Stable Departure-Patient Inst. Decision time for Depature: 17:50 Referrals: ALEXA GARVIN DO (PCP) Primary Care Physician Patient Instructions: Knee Pain (DC) Add. Discharge Instructions: Apply ice and elevate left knee as needed. Use walker or cane, as needed. Continue Physical Therapy. Call Dr. Garvin for follow-up if your knee is not improving. Return to the emergency department for new, urgent healthcare needs. All discharge instructions reviewed with patient and/or family. Voiced understanding. Copy Copies To 1: ALEXA GARVIN AMY ARNP Jan 17, 2021 17:38
[2021-01-17] MEDS ORDERED: HYDROcodone/APAP 7.5 MG/325 MG (LORTAB, LORCET PLUS) TABLET PO STA (18:09)
[2021-01-17 18:38] VITALS: BP 173/96
== END 2021-01-17 18:30 | disposition home or self-care (01) ==
LOC: EDUNIT# 16:59 → ER 17:00
DX: M25.562 Pain in left knee (principal); I10 Essential (primary) hypertension; I25.10 Atherosclerotic heart disease of native coronary artery without angina pectoris; E78.00 Pure hypercholesterolemia, unspecified; E11.9 Type 2 diabetes mellitus without complications; E03.9 Hypothyroidism, unspecified; F32.9 Major depressive disorder, single episode, unspecified; Z96.652 Presence of left artificial knee joint; Z79.01 Long term (current) use of anticoagulants; Z79.82 Long term (current) use of aspirin; Z79.899 Other long term (current) drug therapy; Z79.84 Long term (current) use of oral hypoglycemic drugs; Z79.890 Hormone replacement therapy
CPT/HCPCS: 73562

== ENCOUNTER 2021-01-20 09:30 | Emergency (ER) | payer MEDICARE, OTHER ==
[~2021-01-20] VITALS: Ht 154.9 cm; Wt 74.8 kg
[2021-01-20] MEDS ORDERED: fentaNYL INJ 100 MCG/2 ML AMP IVP STA (10:03)
[2021-01-20 10:27] LABS: BASOPHILS # (AUTO) 0.1 10^3/uL (0.0-0.1); BASOPHILS % (AUTO) 1 % (0-10); EOSINOPHILS # (AUTO) 0.3 10^3/uL (0.0-0.3); EOSINOPHILS % (AUTO) 4 % (0-10); HEMATOCRIT 42 % (35-52); HEMOGLOBIN 13.6 g/dL (11.5-16.0); LYMPHOCYTES # (AUTO) 2.3 10^3/uL (1.0-4.0); LYMPHOCYTES % (AUTO) 27 % (12-44); MEAN CORPUSCULAR HEMOGLOBIN 31 pg (25-34); MEAN CORPUSCULAR HGB CONC 32 g/dL (32-36); MEAN CORPUSCULAR VOLUME 98 fL (80-99); MEAN PLATELET VOLUME 8.9 fL (9.0-12.2); MONOCYTES # (AUTO) 0.5 10^3/uL (0.0-1.0); MONOCYTES % (AUTO) 6 % (0-12); NEUTROPHILS # (AUTO) 5.2 10^3/uL (1.8-7.8); NEUTROPHILS % (AUTO) 62 % (42-75); PLATELET COUNT 480 10^3/uL (130-400); WHITE BLOOD COUNT 8.4 10^3/uL (4.3-11.0)
[2021-01-20] MEDS ORDERED: diphenhydrAMINE 50 MG/ML INJ (BENADRYL) IVP ONE (10:30)
[2021-01-20 10:45] LABS: ERYTHROCYTE SEDIMENTATION RATE 9 MM/HR (0-30)
[2021-01-20 10:48] LABS: ALBUMIN 3.8 GM/DL (3.2-4.5); BILIRUBIN,TOTAL 0.6 MG/DL (0.1-1.0); CALCIUM 9.6 MG/DL (8.5-10.1); CREATININE SERUM 1.07 MG/DL (0.60-1.30); POTASSIUM 4.4 MMOL/L (3.6-5.0); TOTAL PROTEIN 6.8 GM/DL (6.4-8.2)
--- NOTE | 2021-01-20 11:16 | ED Lower Extremity ---
General Chief Complaint: Lower Extremity Stated Complaint: L LEG PAIN,SWELLING,WEAKNESS,DOPPLER STUDY Nursing Triage Note: PT TO RM 8 WITH COMPLAINT OF LEFT CALF PAIN. PT HAD TOTAL KNEE REPLACEMENT ON Dec. Source: patient History of Present Illness Date Seen by Provider: Jan 20, 2021 Time Seen by Provider: 09:55 Initial Comments PT ARRIVES VIA POV FROM HOME PT HAD LEFT TOTAL KNEE REPLACEMENT ON 01/02/[address] CURIEL PT HAS BEEN HAVING HOME PHYSICAL THERAPY ON SATURDAY NIGHT, SHE WAS IN KITCHEN AND HAD REACHED AND TWISTED TO HER RIGHT, PIVOTING ON HER LEFT LEG, AND HAD A SUDDEN PAIN IN HER LEFT KNEE, AND FELT SOMETHING POP/GRIND IN HER KNEE AND FELL AGAINST THE COUNTER SEEN IN ER ON SATURDAY, XRAYS WERE DONE, WHICH DID NOT SHOW ANY LOOSENING OF HARDWARE OR ACUTE BONY INJURY PT CONTINUES TO COMPLAIN OF INCREASING PAIN IN KNEE AND LEFT CALF. TOOK HYDROCODONE 2 HOURS AGO AND IT HELPED CALLED DR. CURIEL'S OFFICE AND WAS TOLD SHE NEEDED AN ULTRASOUND TO R/O DVT. HAS NOT SEEN HIM THIS WEEK FOR THIS PROBLEM PT DOES NOT HAVE ANY DISTAL EDEMA --ONLY SWELLING IS TO KNEE ITSELF NO PARESTHESIAS OR MOTOR DEFICITS NO REDNESS TO THE SURGICAL SITE NO FEVER NO CHEST PAIN NO SHORTNESS OF BREATH NO PALPITATIONS NO DIZZINESS OR SYNCOPE NEXT FOLLOW UP APPOINTMENT WITH DR. CURIEL IN FEBRUARY SOMETIME PCP: DR. PAUL ORTHOPEDIC SURGEON: DR. CURIEL Allergies and Home Medications Allergies Coded Allergies: Sulfa (Sulfonamide Antibiotics) (Verified Allergy, Unknown, 03/05/08) codeine (Verified Allergy, Unknown, Pt takes Tramadol at home, 05/13/18) meperidine (Verified Allergy, Unknown, 03/05/08) morphine (Verified Allergy, Unknown, Pt takes Tramadol at home, 05/13/18) penicillin G (Verified Allergy, Unknown, 03/05/08) Patient Home Medication List Home Medication List Reviewed: Yes Albuterol Sulfate (Albuterol Sulfate) 2.5 Mg/3 Ml Vial.neb, 2.5 MG IH Q4H Prescribed by: IRINA LEDESMA on 02/09/19 0620 Amlodipine Besylate (Amlodipine Besylate) 10 Mg Tablet, 10 MG PO DAILY Prescribed by: MARIO PAUL on 05/14/18 0858 Aspirin (Aspirin EC) 81 Mg Tablet.dr, 81 MG PO Q48H, (Reported) Entered as Reported by: CAITY EDUARDO on 01/31/15 0939 Atorvastatin Calcium (Lipitor) 80 Mg Tablet, 80 MG PO DAILY Prescribed by: MARIO PAUL on 05/14/18 0858 Benzonatate (Tessalon Perles) 100 Mg Capsule, 1-2 TAB PO TID Prescribed by: IRINA LEDESMA on 02/09/19 06 Calcium Carbonate/Vitamin D3 (Calcium 600 + Vit D 800 Tab) 1 Each Tablet, 1 TAB PO BID, (Reported) Entered as Reported by: CAITY EDUARDO on 05/13/18 1111 Cefdinir (Cefdinir) 300 Mg Capsule, 300 MG PO BID Prescribed by: IRINA LEDESMA on 02/09/19 06 Clopidogrel Bisulfate (Clopidogrel) 75 Mg Tablet, 75 MG PO DAILY Prescribed by: MARIO PAUL on 05/14/18 0858 D-Methorphan Hb/Prometh HCl (Promethazine-Dm Syrup) 118 Ml Syrup, 1-2 TSP PO Q4H Prescribed by: IRINA LEDESMA on 02/09/19 0620 Doxazosin Mesylate (Doxazosin Mesylate) 2 Mg Tablet, 2 MG PO HS Prescribed by: MARIO PAUL on 05/14/18 0858 Doxycycline Monohydrate (Doxycycline Monohydrate) 100 Mg Capsule, 100 MG PO BID Prescribed by: IRINA LEDESMA on 02/09/19 0620 Duloxetine HCl (Cymbalta) 60 Mg Capsule.dr, 60 MG PO DAILY, (Reported) Entered as Reported by: CAITY EDUARDO on 05/13/18 1111 Labetalol HCl (Labetalol HCl) 100 Mg Tablet, 100 MG PO BID, (Reported) Entered as Reported by: CAITY EDUARDO on 05/13/18 1111 Levothyroxine Sodium (Synthroid) 75 Mcg Tablet, 75 MCG PO DAILY, (Reported) Entered as Reported by: MASON KIM on 01/30/15 1210 Magnesium Oxide (Magnesium) 500 Mg Capsule, 500 MG PO HS, (Reported) Entered as Reported by: CAITY EDUARDO on 05/13/18 1111 Melatonin/Lemon [place] Extr (Melatonin-Lemon [place] Tablet) 1 Each Tablet, 1 TAB PO HS, (Reported) Entered as Reported by: CAITY EDUARDO on 05/13/18 1111 Meloxicam (Meloxicam) 15 Mg Tablet, 15 MG PO DAILY, (Reported) Entered as Reported by: CAITY EDUARDO on 05/13/18 1111 Metformin HCl (Metformin HCl) 500 Mg Tablet, 500 MG PO BID Prescribed by: MARIO PAUL on 05/14/18 0858 Methylprednisolone (Medrol) 4 Mg Tab.ds.pk, 4 MG PO UD Prescribed by: IRINA LEDESMA on 02/09/19 0620 Multivits-Min/Iron/FA/Lutein (Centrum Silver Women Tablet) 1 Each Tablet, 1 TAB PO DAILY, (Reported) Entered as Reported by: CAITY EDUARDO on 05/13/18 1111 Ondansetron (Ondansetron Odt) 8 Mg Tab.rapdis, 8 MG PO Q6H PRN for NAUSEA/VOMITING-1ST LINE Prescribed by: SIENNA COX on 05/10/18 1643 Quinapril HCl (Quinapril HCl) 40 Mg Tablet, 40 MG PO HS, (Reported) Entered as Reported by: CAITY EDUARDO on 05/13/18 1111 Sennosides/Docusate Sodium (Senna S Tablet) 1 Each Tablet, 2 TAB PO Q48H@2100, (Reported) Entered as Reported by: CAITY EDUARDO on 05/13/18 1112 Tramadol HCl (Tramadol HCl) 50 Mg Tablet, 50 MG PO BID PRN for PAIN-MODERATE, (Reported) Entered as Reported by: CAITY EDUARDO on 05/13/18 1111 Tramadol HCl (Tramadol HCl) 50 Mg Tablet, 50 MG PO HS, (Reported) Entered as Reported by: CAITY EDUARDO on 05/13/18 1111 [[place] 3/Turmeric] , 1 CAP PO BID, (Reported) Entered as Reported by: CAITY EDUARDO on 05/13/18 1111 Discontinued Medications Oxycodone HCl/Acetaminophen (Oxycodone-Acetaminophen 5-325) 1 Each Tablet, 1 EACH PO Q4H PRN for PAIN-MODERATE Discontinued Reason: Prescription changed Prescribed by: IRINA LEDESMA on 01/20/21 1121 Review of Systems Constitutional: no symptoms reported Respiratory: no symptoms reported; No short of breath Cardiovascular: no symptoms reported; No chest pain, No palpitations Gastrointestinal: no symptoms reported Genitourinary: no symptoms reported Musculoskeletal: see HPI Skin: no symptoms reported Psychiatric/Neurological: Anxiety; Denies Numbness, Denies Paresthesia, Denies Tingling, Denies Tremors, Denies Weakness Past Bguzgxw-Utwksu-Hhjktd Hx Patient Social History Tobacco Use?: No Use of E-Cig and/or Vaping dev: No Substance use?: No Alcohol Use?: No Pt feels they are or have been: No Immunizations Up To Date Tetanus Booster (TDap): More than 5yrs First/Initial COVID19 Vaccinat: May 2020 Second COVID19 Vaccination Jaxon: Jun 2020 Seasonal Allergies Seasonal Allergies: No Past Medical History Surgery/Hospitalization HX: LEFT TKR 01/02/[address] 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 Sexually Transmitted Disease: No HIV/AIDS: No Genitourinary: No Gastrointestinal: No Musculoskeletal: Yes (LEFT TKR 01/02/21) Osteoporosis, Arthritis, Rheumatoid Arthritis Endocrine: Yes Hypothyroidsim, Diabetes, Non-Insulin dep HEENT: No Loss of Vision: Denies Hearing Impairment: Denies Cancer: No Psychosocial: Yes Depression Integumentary: No Blood Disorders: No Adverse Reaction/Blood Tranf: No Family Medical History Cardiovascular disease 19 MOTHER, Onset:50's - 60 G8 BROTHER, Onset:30's - 40 G8 BROTHER, Onset:40's - 50 G8 BROTHER, Onset:30's - 40 Colon cancer 19 FATHER Diabetes mellitus 19 FATHER G8 SISTER, Onset:40's - 50 G8 SISTER G8 BROTHER Myocardial infarction G8 SISTER G8 SISTER Heart Disease, Cancer, Diabetes, Hypertension Physical Exam Vital Signs Vital Signs - First Documented 01/20/21 09:50 Temp 36.1 Pulse 74 Resp 14 B/P (MAP) 146/96 (113) Pulse Ox 98 O2 Delivery Room Air Capillary Refill : Less Than 3 Seconds Height, Weight, BMI Height: 5'1.00" Weight: 191lbs. 0.0oz. 86.651499ts; 31.00 BMI Method:Stated General Appearance: WD/WN, no apparent distress, other (ANXIOUS, TEARFUL) Hips: bilateral hip normal inspection Legs: right leg normal inspection; left leg other (NO SWELLING OR TENDERNESS TO LOWER LEG/ANKLE/FOOT. DISTAL MOTOR/SENSORY/VASCULAR INTACT) Knees: right knee normal inspection; left knee other (MODERATE SWELLING TO LEFT KNEE. INCISION IS HEALING WELL, NO SIGNS OF INFECTION. LIMITED ROM DUE TO PAIN ) Ankles: right ankle normal inspection; left ankle other Feet: right foot normal inspection; left foot other Neurologic/Tendon: normal sensation, normal motor functions, normal tendon functions Neurologic/Psychiatric: no motor/sensory deficits, alert, oriented x 3 Skin: normal color Progress/Results/Core Measures Results/Orders Lab Results Laboratory Tests Test 01/20/21 10:15 Range/Units White Blood Count 8.4 4.3-11.0 10^3/uL Red Blood Count 4.34 3.80-5.11 10^6/uL Hemoglobin 13.6 11.5-16.0 g/dL Hematocrit 42 35-52 % Mean Corpuscular Volume 98 80-99 fL Mean Corpuscular Hemoglobin 31 25-34 pg Mean Corpuscular Hemoglobin Concent 32 32-36 g/dL Red Cell Distribution Width 13.2 10.0-14.5 % Platelet Count 480 H 130-400 10^3/uL Mean Platelet Volume 8.9 L 9.0-12.2 fL Immature Granulocyte % (Auto) 0 % Neutrophils (%) (Auto) 62 42-75 % Lymphocytes (%) (Auto) 27 12-44 % Monocytes (%) (Auto) 6 0-12 % Eosinophils (%) (Auto) 4 0-10 % Basophils (%) (Auto) 1 0-10 % Neutrophils # (Auto) 5.2 1.8-7.8 10^3/uL Lymphocytes # (Auto) 2.3 1.0-4.0 10^3/uL Monocytes # (Auto) 0.5 0.0-1.0 10^3/uL Eosinophils # (Auto) 0.3 0.0-0.3 10^3/uL Basophils # (Auto) 0.1 0.0-0.1 10^3/uL Immature Granulocyte # (Auto) 0.0 0.0-0.1 10^3/uL Erythrocyte Sedimentation Rate 9 0-30 MM/HR Sodium Level 138 135-145 MMOL/L Potassium Level 4.4 3.6-5.0 MMOL/L Chloride Level 102 98-107 MMOL/L Carbon Dioxide Level 24 21-32 MMOL/L Anion Gap 12 5-14 MMOL/L Blood Urea Nitrogen 18 7-18 MG/DL Creatinine 1.07 0.60-1.30 MG/DL Estimat Glomerular Filtration Rate 50 BUN/Creatinine Ratio 17 Glucose Level 132 H 70-105 MG/DL Lactic Acid Level 1.58 0.50-2.00 MMOL/L Calcium Level 9.6 8.5-10.1 MG/DL Corrected Calcium 9.8 8.5-10.1 MG/DL Total Bilirubin 0.6 0.1-1.0 MG/DL Aspartate Amino Transf (AST/SGOT) 20 5-34 U/L Alanine Aminotransferase (ALT/SGPT) 21 0-55 U/L Alkaline Phosphatase 90 40-136 U/L C-Reactive Protein High Sensitivity 0.71 H 0.00-0.50 MG/DL Total Protein 6.8 6.4-8.2 GM/DL Albumin 3.8 3.2-4.5 GM/DL My Orders Orders - IRINA LEDESMA DO Ed Iv/Invasive Line Start (01/20/21 10:03) Cbc With Automated Diff (01/20/21 10:03) Comprehensive Metabolic Panel (01/20/21 10:03) Hs C Reactive Protein (01/20/21 10:03) Erythrocyte Sedimentation Rate (01/20/21 10:03) Lactic Acid Analyzer (01/20/21 10:03) Us Venous Lower Ext Lt (01/20/21 10:03) Fentanyl Inj (Sublimaze Injection) (01/20/21 10:03) Diphenhydramine Injection (Benadryl Inje (01/20/21 10:30) Medications Given in ED Vital Signs/I&O 01/20/21 01/20/21 09:50 11:35 Temp 36.1 Pulse 74 74 Resp 14 20 B/P (MAP) 146/96 (113) 171/103 Pulse Ox 98 98 O2 Delivery Room Air Room Air Blood Pressure Mean: 113 Progress Progress Note : Progress Note GIVEN FENTANYL FOR PAIN GIVEN BENADRYL AT PT'S REQUEST FOR ANXIETY IMPROVEMENT IN SYMPTOMS OFFERED TO SEND HOME WITH RX FOR ANXIETY MEDICATION AND PT DECLINES--STATES THEY MAKE HER TOO TIRED. STATES SHE WILL TAKE BENADRYL NEEDED Diagnostic Imaging Comments LEFT LEG ULTRASOUND/VENOUS DOPPLER--NO DVT, PER TECH REPORT AT 1055, PER RADIOLOGIST REPORT AT 1131 FINDINGS: The visualized deep and superficial venous systems are patent. There is no DVT. IMPRESSION: Negative left lower extremity venous Doppler. Reviewed: Reviewed by Me Departure Communication (Admissions) 1111--PAGED DR. CURIEL 1117--SPOKE WITH DR. CURIEL, ADVISES THAT PT MAY HAVE SMALL RX FOR OXYCODONE IN PLACE OF HYDROCODONE, AND OFFER ANXIETY MEDICATIONS. HE WILL FOLLOW UP IN [facility] SOONER THAN SCHEDULED APPOINTMENT IF NEEDED Impression Primary Impression: Postoperative pain of left knee Additional Impression: Status post left knee replacement Disposition: HOME, SELF-CARE Condition: Stable Departure-Patient Inst. Decision time for Depature: 11:10 Referrals: MARIO PAUL MD (PCP/Family) Primary Care Physician ALEXA CURIEL DO Patient Instructions: Postoperative Pain (DC) Add. Discharge Instructions: CONTINUE ALL PREVIOUS INSTRUCTIONS FROM YOUR SURGEON HOLD HYDROCODONE, WILL SUBSTITUTE FOR OXYCODONE FOLLOW UP WITH DR. CURIEL SCHEDULED All discharge instructions reviewed with patient and/or family. Voiced understanding. IRINA LEDESMA DO Jan 20, 2021 11:16
[2021-01-20] MEDS ORDERED: OXYC1TAB11 PO ×3 (11:20→11:36)
--- NOTE | 2021-01-20 11:28 | Diagnostic Imaging Report ---
PROCEDURE: US left lower extremity venous. TECHNIQUE: Multiple real-time grayscale images were obtained over the left lower extremity in various projections. Additional duplex Doppler and color Doppler images were also obtained. INDICATION: Left lower extremity swelling and pain. COMPARISON: None. FINDINGS: The visualized deep and superficial venous systems are patent. There is no DVT. IMPRESSION: Negative left lower extremity venous Doppler. Dictated by: Dictated on workstation # [id number]
[2021-01-20 11:35] VITALS: BP 171/103
== END 2021-01-20 11:35 | disposition home or self-care (01) ==
LOC: EDUNIT# 09:30 → ER 09:32
DX: G89.18 Other acute postprocedural pain (principal); M25.562 Pain in left knee; I10 Essential (primary) hypertension; F32.9 Major depressive disorder, single episode, unspecified; E11.9 Type 2 diabetes mellitus without complications; E03.9 Hypothyroidism, unspecified; E78.00 Pure hypercholesterolemia, unspecified; I25.10 Atherosclerotic heart disease of native coronary artery without angina pectoris; Z96.652 Presence of left artificial knee joint; Z79.01 Long term (current) use of anticoagulants; Z79.82 Long term (current) use of aspirin; Z79.899 Other long term (current) drug therapy; Z79.84 Long term (current) use of oral hypoglycemic drugs; Z79.890 Hormone replacement therapy
CPT/HCPCS: 36415; 80053; 83605; 85025; 85652; 86141

== ENCOUNTER → 2021-02-06 | Outpatient (CLI) | payer MEDICARE, OTHER ==
[~2021-02-06] MED LIST changes: -DULO60CA6 PO; +DULO60CA7 PO; +OXYC1TAB11 PO
--- NOTE | 2021-02-06 12:52 | Diagnostic Imaging Report ---
INDICATION: Routine screening. COMPARISON: 02/05/2020 and 02/02/2019. TECHNIQUE: 2D and 3D bilateral screening mammography was performed with CAD. FINDINGS: Scattered fibroglandular densities are identified bilaterally. Multiple peripherally calcified oil cysts in the right breast appear stable. There is a benign nodule in the outer left breast. No spiculated mass or malignant appearing microcalcifications are seen. The axillae are unremarkable. IMPRESSION: No mammographic features suspicious for malignancy are identified. ACR BI-RADS Category 2: Benign findings. Result letter will be mailed to the patient. Note: At least 10% of breast cancer is not imaged by mammography. Dictated by: Dictated on workstation # [id number]
== END ==
LOC: RAD 10:04
PROVIDERS: ATTEND Family Medicine
DX: Z12.31 Encounter for screening mammogram for malignant neoplasm of breast (principal)
CPT/HCPCS: 77063; 77067

== ENCOUNTER 2021-02-17 10:56 | Outpatient (RCR) | payer MEDICARE, OTHER | END 2021-02-17 12:10 | disposition home or self-care (01) | PROVIDERS: ATTEND Nurse Practitioner Family | DX: Z47.1 Aftercare following joint replacement surgery (principal); I10 Essential (primary) hypertension; E11.9 Type 2 diabetes mellitus without complications; Z96.652 Presence of left artificial knee joint ==

== ENCOUNTER → 2022-02-23 | Outpatient (CLI) | payer MEDICARE, OTHER ==
[~2022-02-23] MED LIST changes: +CYCL10TA25 PO; -CYCL10TA9 PO; -LABE100T6 PO; +LABE100T9 PO; -OLME40TA12 PO; +OLME40TA70 PO; -QUIN40TA14 PO; +QUIN40TA34 PO; -TRIA1CAP4 PO; +TRIA1CAP84 PO
--- NOTE | 2022-02-23 12:05 | Diagnostic Imaging Report ---
Indication: Routine screening. Comparison is made with prior mammograms from 02/06/2021 and 02/05/2020. 2-D and 3-D bilateral screening mammography was performed with CAD. Scattered fibroglandular densities are identified bilaterally. Multiple peripherally calcified oil cysts right breast are again noted. Intraparenchymal lymph node in the outer left breast is stable. No new mass or malignant-appearing microcalcifications are seen. Axillae are unremarkable. IMPRESSION: BI-RADS Category 2 No mammographic features suspicious for malignancy are identified. ACR BI-RADS Category 2: Benign findings. Result letter will be mailed to the patient. Note: At least 10% of breast cancer is not imaged by mammography. Dictated by: Dictated on workstation # [id number]
== END ==
LOC: RAD 08:58
PROVIDERS: ATTEND Nurse Practitioner Family
DX: Z12.31 Encounter for screening mammogram for malignant neoplasm of breast (principal)
CPT/HCPCS: 77063; 77067

== ENCOUNTER 2022-03-27 03:36 | Emergency (ER) | payer MEDICARE, OTHER ==
[~2022-03-27 03:36] MED LIST changes: -DOXY-311 PO; +DOXY-444 PO
[2022-03-27] MEDS ORDERED: ONDANSETRON 4 MG/2 ML (SDV) Z0FRAN IVP ONE (04:00)
[2022-03-27] MEDS ORDERED: HYOSCYAMINE 0.125 MG (LEVSIN) TAB SL ONE (04:00)
[2022-03-27] MEDS ORDERED: KETOROLAC 30 MG/ML VIAL IVP ONE (04:00)
[2022-03-27] MEDS ORDERED: LACTATED RINGERS 1,000 ML IV ONE (04:00)
[2022-03-27 04:53] LABS: BASOPHILS % (AUTO) 0 % (0-10); EOSINOPHILS # (AUTO) 0.1 10^3/uL (0.0-0.3); EOSINOPHILS % (AUTO) 1 % (0-10); HEMATOCRIT 43 % (35-52); HEMOGLOBIN 13.9 g/dL (11.5-16.0); LYMPHOCYTES # (AUTO) 1.1 10^3/uL (1.0-4.0); LYMPHOCYTES % (AUTO) 19 % (12-44); MEAN CORPUSCULAR HEMOGLOBIN 31 pg (25-34); MEAN CORPUSCULAR HGB CONC 33 g/dL (32-36); MEAN CORPUSCULAR VOLUME 96 fL (80-99); MEAN PLATELET VOLUME 9.5 fL (9.0-12.2); MONOCYTES # (AUTO) 0.4 10^3/uL (0.0-1.0); MONOCYTES % (AUTO) 6 % (0-12); NEUTROPHILS # (AUTO) 4.4 10^3/uL (1.8-7.8); NEUTROPHILS % (AUTO) 74 % (42-75); PLATELET COUNT 203 10^3/uL (130-400)
--- NOTE | 2022-03-27 05:01 | ED General ---
General Chief Complaint: Fever-Adult/Adol Stated Complaint: N,V,D,WEAK,PAIN ALL OVER,FAN Nursing Triage Note: PT ARRIVAL TO ER VIA PRIVATE VEHICLE FROM HOME WITH COMPLAINTS OF N/V/D, HEADACHE, BODY ACHES, FEVER X18 HOURS. PTS FRIEND WHO BROUGHT HER JUST HAD ALL OF THESE SAME SYMPTOMS AND WAS NEGATIVE FOR FLU AND COVID. Source of Information: Patient Exam Limitations: No Limitations History of Present Illness Date Seen by Provider: Mar 27, 2022 Time Seen by Provider: 03:45 Initial Comments This 71-year-old woman presents to the emergency room with complaints of flulike symptoms for about the past 18 hours including vomiting, diarrhea, headache, myalgia, and fever. Allergies and Home Medications Allergies Coded Allergies: Sulfa (Sulfonamide Antibiotics) (Verified Allergy, Unknown, 03/05/08) codeine (Verified Allergy, Unknown, Pt takes Tramadol at home, 05/13/18) meperidine (Verified Allergy, Unknown, 03/05/08) morphine (Verified Allergy, Unknown, Pt takes Tramadol at home, 05/13/18) penicillin G (Verified Allergy, Unknown, 03/05/08) Patient Home Medication List Home Medication List Reviewed: Yes Albuterol Sulfate (Albuterol Sulfate) 2.5 Mg/3 Ml Vial.neb, 2.5 MG IH Q4H Prescribed by: IRINA LEDESMA on 02/09/19 06 Amlodipine Besylate (Amlodipine Besylate) 10 Mg Tablet, 10 MG PO DAILY Prescribed by: MARIO PAUL on 05/14/18 0858 Aspirin (Aspirin EC) 81 Mg Tablet.dr, 81 MG PO Q48H, (Reported) Entered as Reported by: CAITY EDUARDO on 01/31/15 0939 Atorvastatin Calcium (Lipitor) 80 Mg Tablet, 80 MG PO DAILY Prescribed by: MARIO PAUL on 05/14/18 0858 Benzonatate (Tessalon Perles) 100 Mg Capsule, 1-2 TAB PO TID Prescribed by: IRINA LEDESMA on 02/09/19 0620 Calcium Carbonate/Vitamin D3 (Calcium 600 + Vit D 800 Tab) 1 Each Tablet, 1 TAB PO BID, (Reported) Entered as Reported by: CAITY EDUARDO on 05/13/18 1111 Cefdinir (Cefdinir) 300 Mg Capsule, 300 MG PO BID Prescribed by: IRINA LEDESMA on 02/09/19 0620 Clopidogrel Bisulfate (Clopidogrel) 75 Mg Tablet, 75 MG PO DAILY Prescribed by: MARIO PAUL on 05/14/18 0858 D-Methorphan Hb/Prometh HCl (Promethazine-Dm Syrup) 118 Ml Syrup, 1-2 TSP PO Q4H Prescribed by: IRINA LEDESMA on 02/09/19 06 Doxazosin Mesylate (Doxazosin Mesylate) 2 Mg Tablet, 2 MG PO HS Prescribed by: MARIO PAUL on 05/14/18 0858 Doxycycline Monohydrate (Doxycycline Monohydrate) 100 Mg Capsule, 100 MG PO BID Prescribed by: IRINA LEDESMA on 02/09/19 06 Duloxetine HCl (Cymbalta) 60 Mg Capsule.dr, 60 MG PO DAILY, (Reported) Entered as Reported by: CAITY EDUARDO on 05/13/18 1111 Hyoscyamine Sulfate (Levsin-Sl) 0.125 Mg Tab.subl, 0.125 MG SL Q4H PRN for CRAMPS Prescribed by: MICHAELA VELOZ on 03/27/22 0556 Labetalol HCl (Labetalol HCl) 100 Mg Tablet, 100 MG PO BID, (Reported) Entered as Reported by: CAITY EDUARDO on 05/13/18 1111 Levothyroxine Sodium (Synthroid) 75 Mcg Tablet, 75 MCG PO DAILY, (Reported) Entered as Reported by: MASON KIM on 01/30/15 1210 Magnesium Oxide (Magnesium) 500 Mg Capsule, 500 MG PO HS, (Reported) Entered as Reported by: CAITY EDUARDO on 05/13/18 1111 Melatonin/Lemon [place] Extr (Melatonin-Lemon [place] Tablet) 1 Each Tablet, 1 TAB PO HS, (Reported) Entered as Reported by: CAITY EDUARDO on 05/13/18 1111 Meloxicam (Meloxicam) 15 Mg Tablet, 15 MG PO DAILY, (Reported) Entered as Reported by: CAITY EDUARDO on 05/13/18 1111 Metformin HCl (Metformin HCl) 500 Mg Tablet, 500 MG PO BID Prescribed by: MARIO PAUL on 05/14/18 0858 Methylprednisolone (Medrol) 4 Mg Tab.ds.pk, 4 MG PO UD Prescribed by: IRINA LEDESMA on 02/09/19 0620 Multivits-Min/Iron/FA/Lutein (Centrum Silver Women Tablet) 1 Each Tablet, 1 TAB PO DAILY, (Reported) Entered as Reported by: CAITY EDUARDO on 05/13/18 1111 Ondansetron (Ondansetron Odt) 8 Mg Tab.rapdis, 8 MG PO Q6H PRN for NAUSEA/VOMITING-1ST LINE Prescribed by: SIENNA COX on 05/10/18 1643 Ondansetron (Ondansetron Odt) 4 Mg Tab.rapdis, 4 MG SL Q4H PRN for NAUSEA/VOMITING Prescribed by: MICHAELA VELOZ on 03/27/22 0556 Quinapril HCl (Quinapril HCl) 40 Mg Tablet, 40 MG PO HS, (Reported) Entered as Reported by: CAITY EDUARDO on 05/13/18 1111 Sennosides/Docusate Sodium (Senna S Tablet) 1 Each Tablet, 2 TAB PO Q48H@2100, (Reported) Entered as Reported by: CAITY EDUARDO on 05/13/18 1112 Tramadol HCl (Tramadol HCl) 50 Mg Tablet, 50 MG PO BID PRN for PAIN-MODERATE, ( Reported) Entered as Reported by: CAITY EDUARDO on 05/13/18 1111 Tramadol HCl (Tramadol HCl) 50 Mg Tablet, 50 MG PO HS, (Reported) Entered as Reported by: CAITY EDUARDO on 05/13/18 1111 [[place] 3/Turmeric] , 1 CAP PO BID, (Reported) Entered as Reported by: CAITY EDUARDO on 05/13/18 1111 Review of Systems Review of Systems Constitutional: see HPI EENTM: no symptoms reported Respiratory: no symptoms reported Cardiovascular: no symptoms reported Gastrointestinal: see HPI Genitourinary: no symptoms reported : No Musculoskeletal: see HPI Skin: no symptoms reported Psychiatric/Neurological: See HPI Hematologic/Lymphatic: No Symptoms Reported Immunological/Allergic: no symptoms reported Past Oiwsvir-Zdxykx-Gzzgnu Hx Patient Social History Tobacco Use?: No Use of E-Cig and/or Vaping dev: No Substance use?: No Alcohol Use?: No Pt feels they are or have been: No Immunizations Up To Date Tetanus Booster (TDap): More than 5yrs Influenza Vaccine Up-to-Date: Yes; Up-to-Date First/Initial COVID19 Vaccinat: May 2020 Second COVID19 Vaccination Jaxon: Jun 2020 Third COVID19 Vaccination Date: May 2020 COVID19 Vaccine 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 Sexually Transmitted Disease: No HIV/AIDS: No Genitourinary: No Gastrointestinal: No Musculoskeletal: Yes (LEFT TKR 01/02/21) Osteoporosis, Arthritis, Rheumatoid Arthritis Endocrine: Yes Hypothyroidsim, Diabetes, Non-Insulin dep HEENT: No Loss of Vision: Denies Hearing Impairment: Denies Cancer: No Psychosocial: Yes Depression Integumentary: No Blood Disorders: No Adverse Reaction/Blood Tranf: No Family Medical History Cardiovascular disease 19 MOTHER, Onset:50's - 60 G8 BROTHER, Onset:30's - 40 G8 BROTHER, Onset:40's - 50 G8 BROTHER, Onset:30's - 40 Colon cancer 19 FATHER Diabetes mellitus 19 FATHER G8 SISTER, Onset:40's - 50 G8 SISTER G8 BROTHER Myocardial infarction G8 SISTER G8 SISTER Heart Disease, Cancer, Diabetes, Hypertension Physical Exam Vital Signs Vital Signs - First Documented 03/27/22 03:47 Temp 36.8 Pulse 74 Resp 20 B/P (MAP) 157/89 (111) Pulse Ox 94 O2 Delivery Room Air Capillary Refill : Less Than 3 Seconds Height, Weight, BMI Height: 5'1.00" Weight: 191lbs. 0.0oz. 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 Norm as Tested Skin: Normal Color, Warm/Dry Progress/Results/Core Measures Suspected Sepsis SIRS Temperature: Pulse: 74 Respiratory Rate: 20 Laboratory Tests 03/27/22 04:34: White Blood Count 6.0 Blood Pressure 157 /89 Mean: 111 Laboratory Tests 03/27/22 04:34: Creatinine 0.83, Platelet Count 203, Total Bilirubin 0.7 Results/Orders Lab Results Laboratory Tests Test 03/27/22 04:23 03/27/22 04:34 Range/Units Influenza Type A (RT-PCR) Not Detected Not Detecte Influenza Type B (RT-PCR) Not Detected Not Detecte SARS-CoV-2 RNA (RT-PCR) Not Detected Not Detecte White Blood Count 6.0 4.3-11.0 10^3/uL Red Blood Count 4.43 3.80-5.11 10^6/uL Hemoglobin 13.9 11.5-16.0 g/dL Hematocrit 43 35-52 % Mean Corpuscular Volume 96 80-99 fL Mean Corpuscular Hemoglobin 31 25-34 pg Mean Corpuscular Hemoglobin Concent 33 32-36 g/dL Red Cell Distribution Width 14.4 10.0-14.5 % Platelet Count 203 130-400 10^3/uL Mean Platelet Volume 9.5 9.0-12.2 fL Immature Granulocyte % (Auto) 0 % Neutrophils (%) (Auto) 74 42-75 % Lymphocytes (%) (Auto) 19 12-44 % Monocytes (%) (Auto) 6 0-12 % Eosinophils (%) (Auto) 1 0-10 % Basophils (%) (Auto) 0 0-10 % Neutrophils # (Auto) 4.4 1.8-7.8 10^3/uL Lymphocytes # (Auto) 1.1 1.0-4.0 10^3/uL Monocytes # (Auto) 0.4 0.0-1.0 10^3/uL Eosinophils # (Auto) 0.1 0.0-0.3 10^3/uL Basophils # (Auto) 0.0 0.0-0.1 10^3/uL Immature Granulocyte # (Auto) 0.0 0.0-0.1 10^3/uL Sodium Level 141 135-145 MMOL/L Potassium Level 3.9 3.6-5.0 MMOL/L Chloride Level 105 98-107 MMOL/L Carbon Dioxide Level 26 21-32 MMOL/L Anion Gap 10 5-14 MMOL/L Blood Urea Nitrogen 19 H 7-18 MG/DL Creatinine 0.83 0.60-1.30 MG/DL Estimat Glomerular Filtration Rate 74 BUN/Creatinine Ratio 23 Glucose Level 141 H 70-105 MG/DL Calcium Level 8.6 8.5-10.1 MG/DL Corrected Calcium 8.9 8.5-10.1 MG/DL Magnesium Level 1.8 1.6-2.4 MG/DL Total Bilirubin 0.7 0.1-1.0 MG/DL Aspartate Amino Transf (AST/SGOT) 19 5-34 U/L Alanine Aminotransferase (ALT/SGPT) 24 0-55 U/L Alkaline Phosphatase 58 40-136 U/L Total Protein 5.7 L 6.4-8.2 GM/DL Albumin 3.6 3.2-4.5 GM/DL Lipase 7 L 8-78 U/L My Orders Orders - MICHAELA CARTER MD Ed Iv/Invasive Line Start (03/27/22 03:55) Lactated Ringers (Lr 1000 Ml Iv Solution (03/27/22 04:00) Ondansetron Injection (Zofran Injectio (03/27/22 04:00) Ketorolac Injection (Toradol Injection) (03/27/22 04:00) Cbc With Automated Diff (03/27/22 03:55) Comprehensive Metabolic Panel (03/27/22 03:55) Lipase (03/27/22 03:55) Magnesium (03/27/22 03:55) Ua Culture If Indicated (03/27/22 03:55) Hyoscyamine Sl Tablet (Levsin Sl Tablet) (03/27/22 04:00) Covid 19 Inhouse Test (03/27/22 03:56) Influenza A And B By Pcr (03/27/22 03:56) Fentanyl Inj (Sublimaze Injection) (03/27/22 06:00) Medications Given in ED Current Medications Medications Dose Ordered Sig/Winifred Route Start Time Stop Time Status Last Admin Dose Admin Hyoscyamine Sulfate 0.25 mg ONCE ONCE SL 03/27/22 04:00 03/27/22 04:01 DC 03/27/22 04:02 0.25 MG Ketorolac Tromethamine 15 mg ONCE ONCE IVP 03/27/22 04:00 03/27/22 04:01 DC 03/27/22 04:02 15 MG Lactated Ringer's 1,000 ml @ 0 mls/hr Q0M ONCE IV 03/27/22 04:00 03/27/22 04:01 DC 03/27/22 04:02 0 MLS/HR Ondansetron HCl 8 mg ONCE ONCE IVP 03/27/22 04:00 03/27/22 04:01 DC 03/27/22 04:02 8 MG Vital Signs/I&O 03/27/22 03:47 Temp 36.8 Pulse 74 Resp 20 B/P (MAP) 157/89 (111) Pulse Ox 94 O2 Delivery Room Air Capillary Refill : Less Than 3 Seconds Blood Pressure Mean: 111 Progress Note #1: Time: 04:54 Progress Note Patient was interviewed and examined. She is being treated with Zofran, Toradol , and IV fluids. Basic labs and swabs for influenza and COVID are pending. Progress Note #2: Time: 05:53 Progress Note Patient is feeling much better except for some continued throbbing headache focused above the left brow. Fentanyl is being provided for further pain relief. Work-up was unremarkable. Departure Impression Primary Impression: Flu-like symptoms Additional Impression: Nausea vomiting and diarrhea Disposition: 01 HOME, SELF-CARE Condition: Improved Departure-Patient Inst. Decision time for Depature: 05:54 Referrals: MARIO PAUL MD (PCP/Family) Primary Care Physician Patient Instructions: Headache, Adult ED, Nausea and Vomiting, Adult Add. Discharge Instructions: Drink plenty of clear liquids. Start with a clear liquid diet and gradually advance your diet with small quantities of bland food as tolerated. Avoid dairy products as well as fatty or greasy foods for at least 48 hours after diarrhea resolves. You may use Zofran (ondansetron) as prescribed for nausea and vomiting. Use Levsin (hyoscyamine) as prescribed for bowel cramping. You may continue using Tylenol (acetaminophen) and Ultram (tramadol) for pain. You may sparingly use ibuprofen up to 400 mg every 6 hours as needed for pain not controlled by Tylenol and Ultram. Return to care if you have worsening symptoms despite following these instructions. All discharge instructions reviewed with patient and/or family. Voiced understanding. Scripts Hyoscyamine Sulfate (Levsin-Sl) 0.125 Mg Tab.subl 0.125 MG SL Q4H PRN for CRAMPS, #10 TAB 0 Refills Prov: MICHAELA CARTER MD 03/27/22 Ondansetron (Ondansetron Odt) 4 Mg Tab.rapdis 4 MG SL Q4H PRN for NAUSEA/VOMITING, #10 TAB Prov: MICHAELA CARTER MD 03/27/22 Copy Copies To 1: MARIO PAUL MD, JOSHUA T MD Mar 27, 2022 05:01
[2022-03-27 05:31] LABS: ALBUMIN 3.6 GM/DL (3.2-4.5); POTASSIUM 3.9 MMOL/L (3.6-5.0)
[2022-03-27 05:32] LABS: CALCIUM 8.6 MG/DL (8.5-10.1)
[2022-03-27 05:33] LABS: TOTAL PROTEIN 5.7 GM/DL (6.4-8.2)
[2022-03-27 05:35] LABS: BILIRUBIN,TOTAL 0.7 MG/DL (0.1-1.0)
[2022-03-27 05:37] LABS: CREATININE SERUM 0.83 MG/DL (0.60-1.30)
[2022-03-27 05:40] LABS: MAGNESIUM 1.8 MG/DL (1.6-2.4)
[2022-03-27] MEDS ORDERED: HYOS0.1283 SL (05:56)
[2022-03-27] MEDS ORDERED: ONDA4TAB11 SL (05:56)
[2022-03-27 06:00] VITALS: BP 167/83
[2022-03-27] MEDS ORDERED: fentaNYL INJ 100 MCG/2 ML AMP IVP ONE (06:00)
== END 2022-03-27 06:09 | disposition home or self-care (01) ==
LOC: EDUNIT# 03:36 → ER 03:40
DX: R11.2 Nausea with vomiting, unspecified (principal); R19.7 Diarrhea, unspecified; R51.9 Headache, unspecified; Z88.5 Allergy status to narcotic agent; Z20.822 Contact with and (suspected) exposure to COVID-19
CPT/HCPCS: 36415; 80053; 83690; 83735; 85025; 87636; 99284

== ENCOUNTER 2022-04-30 18:40 | Emergency (ER) | payer MEDICARE, OTHER ==
[~2022-04-30 18:40] MED LIST changes: +HYOS0.1283 SL; +ONDA4TAB11 SL
[2022-04-30] MEDS ORDERED: KETOROLAC 30 MG/ML VIAL IVP ONE (19:15)
[2022-04-30] MEDS ORDERED: ONDANSETRON 4 MG/2 ML (SDV) Z0FRAN IVP ONE (19:15)
--- NOTE | 2022-04-30 19:15 | ED Headache ---
General Chief Complaint: Head/Cervical Problems Stated Complaint: VISUAL DISTURBANCE, MIGRAINE Nursing Triage Note: PT ARRIVAL TO ER VIA PRIVATE VEHICLE FROM HOME WITH COMPLAINT OF MIGRAINE X1 HOUR. PATIENT WAS SITTING AT [employer] AND STARTED HAVING A VISUAL DISTURBANCE OUT OF CORNER OF LEFT EYE. STATES THAT IT WAS LIKE A KALEIDOSCOPE, BRIGHT AND MOVING. PATIENTS FRIEND BROUGHT HER OUT HERE BECAUSE SHE WAS WORRIED IT WAS A STROKE. Source: patient Exam Limitations: no limitations History of Present Illness Date Seen by Provider: Apr 30, 2022 Time Seen by Provider: 19:15 Initial Comments This is a 71-year-old female with a history of migraine headaches who presented to the ER with complaints of a migraine that started over the last hour. She has had intermittent pain in the left side of her head and behind her left eye throughout the week, 1 hour prior to arrival she was having some left-sided head pain and noticed some kaleidoscope bright lights. Allergies and Home Medications Allergies Coded Allergies: Sulfa (Sulfonamide Antibiotics) (Verified Allergy, Unknown, 03/05/08) codeine (Verified Allergy, Unknown, Pt takes Tramadol at home, 05/13/18) meperidine (Verified Allergy, Unknown, 03/05/08) morphine (Verified Allergy, Unknown, Pt takes Tramadol at home, 05/13/18) penicillin G (Verified Allergy, Unknown, 03/05/08) Patient Home Medication List Albuterol Sulfate (Albuterol Sulfate) 2.5 Mg/3 Ml Vial.neb, 2.5 MG IH Q4H Prescribed by: IRINA LEDESMA on 02/09/19 0620 Amlodipine Besylate (Amlodipine Besylate) 10 Mg Tablet, 10 MG PO DAILY Prescribed by: MARIO PAUL on 05/14/18 0858 Aspirin (Aspirin EC) 81 Mg Tablet.dr, 81 MG PO Q48H, (Reported) Entered as Reported by: CAITY EDUARDO on 01/31/15 0939 Atorvastatin Calcium (Lipitor) 80 Mg Tablet, 80 MG PO DAILY Prescribed by: MARIO PAUL on 05/14/18 0858 Benzonatate (Tessalon Perles) 100 Mg Capsule, 1-2 TAB PO TID Prescribed by: IRINA LEDESMA on 02/09/19 0620 Calcium Carbonate/Vitamin D3 (Calcium 600 + Vit D 800 Tab) 1 Each Tablet, 1 TAB PO BID, (Reported) Entered as Reported by: CAITY EDUARDO on 05/13/18 1111 Cefdinir (Cefdinir) 300 Mg Capsule, 300 MG PO BID Prescribed by: IRINA LEDESMA on 02/09/19 06 Clopidogrel Bisulfate (Clopidogrel) 75 Mg Tablet, 75 MG PO DAILY Prescribed by: MARIO PAUL on 05/14/18 0858 D-Methorphan Hb/Prometh HCl (Promethazine-Dm Syrup) 118 Ml Syrup, 1-2 TSP PO Q4H Prescribed by: IRINA LEDESMA on 02/09/19 0620 Doxazosin Mesylate (Doxazosin Mesylate) 2 Mg Tablet, 2 MG PO HS Prescribed by: MARIO PAUL on 05/14/18 0858 Doxycycline Monohydrate (Doxycycline Monohydrate) 100 Mg Capsule, 100 MG PO BID Prescribed by: IRINA LEDESMA on 02/09/19 06 Duloxetine HCl (Cymbalta) 60 Mg Capsule.dr, 60 MG PO DAILY, (Reported) Entered as Reported by: CAITY EDUARDO on 05/13/18 1111 Hyoscyamine Sulfate (Levsin-Sl) 0.125 Mg Tab.subl, 0.125 MG SL Q4H PRN for CRAMPS Prescribed by: MICHAELA VELOZ on 03/27/22 0556 Labetalol HCl (Labetalol HCl) 100 Mg Tablet, 100 MG PO BID, (Reported) Entered as Reported by: CAITY EDUARDO on 05/13/18 1111 Levothyroxine Sodium (Synthroid) 75 Mcg Tablet, 75 MCG PO DAILY, (Reported) Entered as Reported by: MASON KIM on 01/30/15 1210 Magnesium Oxide (Magnesium) 500 Mg Capsule, 500 MG PO HS, (Reported) Entered as Reported by: CAITY EDUARDO on 05/13/18 1111 Melatonin/Lemon [place] Extr (Melatonin-Lemon [place] Tablet) 1 Each Tablet, 1 TAB PO HS, (Reported) Entered as Reported by: CAITY EDUARDO on 05/13/18 1111 Meloxicam (Meloxicam) 15 Mg Tablet, 15 MG PO DAILY, (Reported) Entered as Reported by: CAITY EDUARDO on 05/13/18 1111 Metformin HCl (Metformin HCl) 500 Mg Tablet, 500 MG PO BID Prescribed by: MARIO PAUL on 05/14/18 0858 Methylprednisolone (Medrol) 4 Mg Tab.ds.pk, 4 MG PO UD Prescribed by: IRINA LEDESMA on 02/09/19 0620 Multivits-Min/Iron/FA/Lutein (Centrum Silver Women Tablet) 1 Each Tablet, 1 TAB PO DAILY, (Reported) Entered as Reported by: CAITY EDUARDO on 05/13/18 1111 Ondansetron (Ondansetron Odt) 8 Mg Tab.rapdis, 8 MG PO Q6H PRN for NAUSEA/VOMITING-1ST LINE Prescribed by: SIENNA COX on 05/10/18 1643 Ondansetron (Ondansetron Odt) 4 Mg Tab.rapdis, 4 MG SL Q4H PRN for NAUSEA/VOMITING Prescribed by: MICHAELA VELOZ on 03/27/22 0556 Quinapril HCl (Quinapril HCl) 40 Mg Tablet, 40 MG PO HS, (Reported) Entered as Reported by: CAITY EDUARDO on 05/13/18 1111 Sennosides/Docusate Sodium (Senna S Tablet) 1 Each Tablet, 2 TAB PO Q48H@2100, (Reported) Entered as Reported by: CAITY EDUARDO on 05/13/18 1112 Tramadol HCl (Tramadol HCl) 50 Mg Tablet, 50 MG PO BID PRN for PAIN-MODERATE, (Reported) Entered as Reported by: CAITY EDUARDO on 05/13/18 1111 Tramadol HCl (Tramadol HCl) 50 Mg Tablet, 50 MG PO HS, (Reported) Entered as Reported by: CAITY EDUARDO on 05/13/18 1111 [[place] 3/Turmeric] , 1 CAP PO BID, (Reported) Entered as Reported by: CAITY EDUARDO on 05/13/18 1111 Past Zfmjzat-Ogwxvx-Scszfr Hx Patient Social History Tobacco Use?: No Use of E-Cig and/or Vaping dev: No Substance use?: No Alcohol Use?: No Pt feels they are or have been: No Immunizations Up To Date Tetanus Booster (TDap): More than 5yrs Influenza Vaccine Up-to-Date: Yes; Up-to-Date First/Initial COVID19 Vaccinat: May 2020 Second COVID19 Vaccination Jaxon: Jun 2020 Third COVID19 Vaccination Date: May 2020 COVID19 Vaccine Acute Care Registered Nurse: MODERNA Seasonal Allergies Seasonal Allergies: No Past Medical History Surgery/Hospitalization HX: LEFT TKR 01/02/[address] 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 Sexually Transmitted Disease: No HIV/AIDS: No Genitourinary: No Gastrointestinal: No Musculoskeletal: Yes (LEFT TKR 01/02/21) Osteoporosis, Arthritis, Rheumatoid Arthritis Endocrine: Yes Hypothyroidsim, Diabetes, Non-Insulin dep HEENT: No Loss of Vision: Denies Hearing Impairment: Denies Cancer: No Psychosocial: Yes Depression Integumentary: No Blood Disorders: No Adverse Reaction/Blood Tranf: No Family Medical History Cardiovascular disease 19 MOTHER, Onset:50's - 60 G8 BROTHER, Onset:30's - 40 G8 BROTHER, Onset:40's - 50 G8 BROTHER, Onset:30's - 40 Colon cancer 19 FATHER Diabetes mellitus 19 FATHER G8 SISTER, Onset:40's - 50 G8 SISTER G8 BROTHER Myocardial infarction G8 SISTER G8 SISTER Heart Disease, Cancer, Diabetes, Hypertension Physical Exam Vital Signs Vital Signs - First Documented 04/30/22 18:47 Temp 35.6 Pulse 74 Resp 18 B/P (MAP) 197/136 (156) Pulse Ox 96 O2 Delivery Room Air Capillary Refill : Less Than 3 Seconds Height, Weight, BMI Height: 5'1.00" Weight: 191lbs. 0.0oz. 86.853663kf; 31.00 BMI Method:Stated Progress/Results/Core Measures Results/Orders Lab Results Laboratory Tests Test 04/30/22 18:51 04/30/22 19:35 04/30/22 19:53 Range/Units White Blood Count 7.8 4.3-11.0 10^3/uL Red Blood Count 4.80 3.80-5.11 10^6/uL Hemoglobin 15.0 11.5-16.0 g/dL Hematocrit 46 35-52 % Mean Corpuscular Volume 95 80-99 fL Mean Corpuscular Hemoglobin 31 25-34 pg Mean Corpuscular Hemoglobin Concent 33 32-36 g/dL Red Cell Distribution Width 13.6 10.0-14.5 % Platelet Count 300 130-400 10^3/uL Mean Platelet Volume 9.6 9.0-12.2 fL Immature Granulocyte % (Auto) 0 % Neutrophils (%) (Auto) 58 42-75 % Lymphocytes (%) (Auto) 29 12-44 % Monocytes (%) (Auto) 7 0-12 % Eosinophils (%) (Auto) 5 0-10 % Basophils (%) (Auto) 1 0-10 % Neutrophils # (Auto) 4.5 1.8-7.8 10^3/uL Lymphocytes # (Auto) 2.2 1.0-4.0 10^3/uL Monocytes # (Auto) 0.6 0.0-1.0 10^3/uL Eosinophils # (Auto) 0.4 H 0.0-0.3 10^3/uL Basophils # (Auto) 0.0 0.0-0.1 10^3/uL Immature Granulocyte # (Auto) 0.0 0.0-0.1 10^3/uL Sodium Level 140 135-145 MMOL/L Potassium Level 4.9 3.6-5.0 MMOL/L Chloride Level 106 98-107 MMOL/L Carbon Dioxide Level 20 L 21-32 MMOL/L Anion Gap 14 5-14 MMOL/L Creatinine 1.15 0.60-1.30 MG/DL Estimat Glomerular Filtration Rate 50 Glucose Level 149 H 70-105 MG/DL Calcium Level 9.5 8.5-10.1 MG/DL Corrected Calcium 9.3 8.5-10.1 MG/DL Total Bilirubin 0.3 0.1-1.0 MG/DL Alkaline Phosphatase 69 40-136 U/L Total Protein 7.5 6.4-8.2 GM/DL Albumin 4.2 3.2-4.5 GM/DL My Orders Orders - INGE WILLARD MOBI[employer] SERVICE RV TECHNICIAN Cbc With Automated Diff (04/30/22 19:11) Protime With Inr (04/30/22 19:11) Partial Thromboplastin Time (04/30/22 19:11) Comprehensive Metabolic Panel (04/30/22 19:11) Fibrin Degradation Products (04/30/22 19:11) Troponin I [place] (04/30/22 19:11) Ua Culture If Indicated (04/30/22 19:11) Chest 1 View, Ap/Pa Only (04/30/22 19:11) Ekg Tracing (04/30/22 19:11) Accucheck Stat ONCE (04/30/22 19:11) Ed Iv/Invasive Line Start (04/30/22 19:11) Vital Signs Stroke Patient Q15M (04/30/22 19:11) Ct Head Wo-R/O Stroke (04/30/22 19:11) O2 (04/30/22 19:11) Monitor-Rhythm Ecg Trace Only (04/30/22 19:11) Dysphagia Screening Tool [id number] (04/30/22 19:11) Magnesium (04/30/22 19:11) Myoglobin Serum (04/30/22 19:11) Creatine Kinase (04/30/22 19:11) Creatine Kinase Mb (04/30/22 19:11) Bnp S[place]th (04/30/22 19:11) Ketorolac Injection (Toradol Injection) (04/30/22 19:15) Ondansetron Injection (Zofran Injectio (04/30/22 19:15) Medications Given in ED Current Medications Medications Dose Ordered Sig/Winifred Route Start Time Stop Time Status Last Admin Dose Admin Ketorolac Tromethamine 30 mg ONCE ONCE IVP 04/30/22 19:15 04/30/22 19:16 DC 04/30/22 19:36 30 MG Ondansetron HCl 4 mg ONCE ONCE IVP 04/30/22 19:15 04/30/22 19:16 DC 04/30/22 19:36 4 MG Vital Signs/I&O 04/30/22 18:47 Temp 35.6 Pulse 74 Resp 18 B/P (MAP) 197/136 (156) Pulse Ox 96 O2 Delivery Room Air Blood Pressure Mean: 156 Departure Impression Primary Impression: Migraine headache with aura Additional Impression: Hypertension Departure-Patient Inst. Decision time for Depature: 19:56 Referrals: MARIO PAUL MD (PCP/Family) Primary Care Physician Patient Instructions: Migraines in Adults Add. Discharge Instructions: Plan: 1. May take Tylenol or ibuprofen as needed for migraine headache per package. 2. Follow-up with your primary care provider for persistent headaches. 3. Return to the ER if you have any increased pain, new or worsening symptoms, chest pain, shortness of breath. All discharge instructions reviewed with patient and/or family. Voiced understanding. INGE WILLARD MOBILE SERVICE RV TECHNICIAN Apr 30, 2022 19:15
--- NOTE | 2022-04-30 19:33 | Diagnostic Imaging Report ---
INDICATION: Headache and visual disturbance. TECHNIQUE: Multiple contiguous axial images were obtained through the brain without the use of intravenous contrast. Auto Exposure Controls were utilized during the CT exam to meet ALARA standards for radiation dose reduction. COMPARISON made with 05/12/2018 There were no extra-axial fluid collections. No intracranial hemorrhage. No intracranial mass or mass effect. No midline shift. There are mild low-density changes in the deep white matter compatible with chronic ischemic change. There is no acute territorial ischemia. Calvarial windows are unremarkable. IMPRESSION: Mild chronic changes with no acute intracranial finding. Dictated by: Dictated on workstation # [id number]
[2022-04-30 19:39] LABS: BASOPHILS % (AUTO) 1 % (0-10); EOSINOPHILS # (AUTO) 0.4 10^3/uL (0.0-0.3); EOSINOPHILS % (AUTO) 5 % (0-10); HEMATOCRIT 46 % (35-52); LYMPHOCYTES # (AUTO) 2.2 10^3/uL (1.0-4.0); LYMPHOCYTES % (AUTO) 29 % (12-44); MEAN CORPUSCULAR HEMOGLOBIN 31 pg (25-34); MEAN CORPUSCULAR HGB CONC 33 g/dL (32-36); MEAN CORPUSCULAR VOLUME 95 fL (80-99); MEAN PLATELET VOLUME 9.6 fL (9.0-12.2); MONOCYTES # (AUTO) 0.6 10^3/uL (0.0-1.0); MONOCYTES % (AUTO) 7 % (0-12); NEUTROPHILS # (AUTO) 4.5 10^3/uL (1.8-7.8); NEUTROPHILS % (AUTO) 58 % (42-75); PLATELET COUNT 300 10^3/uL (130-400); WHITE BLOOD COUNT 7.8 10^3/uL (4.3-11.0)
[2022-04-30 19:48] LABS: ALBUMIN 4.2 GM/DL (3.2-4.5); CHLORIDE 106 MMOL/L (98-107); POTASSIUM 4.9 MMOL/L (3.6-5.0); SODIUM 140 MMOL/L (135-145)
[2022-04-30 19:49] LABS: BILIRUBIN,URINE NEGATIVE (NEGATIVE); CLARITY,URINE CLEAR; COLOR,URINE YELLOW; GLUCOSE, URINE (UA) 3+ (NEGATIVE); KETONES,URINE NEGATIVE (NEGATIVE); LEUKOCYTE ESTERASE ,URINE TRACE (NEGATIVE); NITRITE,URINE NEGATIVE (NEGATIVE); PH,URINE 5.5 (5-9); PROTEIN,URINE NEGATIVE (NEGATIVE)
[2022-04-30 19:49] LABS: CALCIUM 9.5 MG/DL (8.5-10.1)
[2022-04-30 19:50] LABS: GLUCOSE 149 MG/DL (70-105)
[2022-04-30 19:51] LABS: TOTAL PROTEIN 7.5 GM/DL (6.4-8.2)
[2022-04-30 19:52] LABS: BILIRUBIN,TOTAL 0.3 MG/DL (0.1-1.0); CARBON DIOXIDE 20 MMOL/L (21-32)
[2022-04-30 19:54] LABS: ALKALINE PHOSPHATASE 69 U/L (40-136); CREATININE SERUM 1.15 MG/DL (0.60-1.30); GFR ESTIMATED 50
--- NOTE | 2022-04-30 19:54 | Diagnostic Imaging Report ---
INDICATION: Hypertension and visual changes. Frontal chest obtained at 10:33 p.m. and compared to 02/09/2019. Heart and mediastinal silhouette are normal in appearance. The lungs are clear. There is no pneumothorax or pleural fluid. IMPRESSION: No acute process in the chest. Dictated by: Dictated on workstation # [id number]
[2022-04-30 19:55] LABS: BUN/CREATININE RATIO 18
[2022-04-30 19:57] LABS: ALANINE AMINOTRANSFERASE 27 U/L (0-55)
[2022-04-30 20:23] LABS: FIBRIN DEGRADATION PRODUCTS 0.65 UG/ML (0.00-0.49); PROTHROMBIN TIME PATIENT 13.3 SEC (12.2-14.7)
[2022-04-30 20:26] LABS: BACTERIA,URINE TRACE /HPF; SQUAMOUS EPITHELIAL CELL,UR RARE /HPF
[2022-04-30] MEDS ORDERED: hydrALAZINE (APESOLINE) 20 MG/ML VIAL IV ONE (20:45)
[2022-04-30 20:53] LABS: MAGNESIUM 2.2 MG/DL (1.6-2.4)
[2022-04-30 21:00] LABS: CREATINE KINASE MB 3.2 NG/ML (<6.6)
[2022-04-30 21:19] VITALS: BP 160/89
== END 2022-04-30 21:19 ==
LOC: EDUNIT# 18:40 → ER 18:42
DX: G43.109 Migraine with aura, not intractable, without status migrainosus (principal); I10 Essential (primary) hypertension; Z88.5 Allergy status to narcotic agent
CPT/HCPCS: 36415; 70450; 71045; 80053; 81000; 82550; 82553; 82947; 83735; 83874; 83880; 84484; 85025; 85379; 85610; 85730; 87088; 93005

== ENCOUNTER → 2022-09-04 | Outpatient (CLI) | payer MEDICARE, OTHER ==
[~2022-09-04] VITALS: Ht 154 cm; Wt 79.0 kg
[~2022-09-04] MED LIST changes: +REGADENOSON 0.4 MG/5 ML SYR (LEXISCAN) IV ONE
[2022-09-04] MEDS: CATHETER FLUSH 10 ML SYR IVP PRN ×2 (11:56→13:30)
[2022-09-04 13:30] VITALS: BP 167/89
--- NOTE | 2022-09-04 22:25 | STRESS TEST ---
DATE OF SERVICE: 09/04/2022 RESTING AND POST REGADENOSON TECHNETIUM-99M TETROFOSMIN SPECT CT IMAGING ORDERING PHYSICIAN: Dr. Gutierrez. PRIMARY PHYSICIAN: Dr. Barboza. CLINICAL DIAGNOSIS: Chest discomfort. Baseline images were carried out after injection of 10.63 mCi of technetium-99m tetrofosmin. This was followed by 0.4 mg regadenoson and 29.2 mCi of technetium-99m tetrofosmin for stress imaging. The electrocardiogram showed sinus rhythm at baseline. There was nonspecific ST abnormality, mild. Electrocardiogram did not change significantly with the regadenoson infusion. Review of images at rest and following stress does not indicate any significant perfusion defects consistent with myocardial ischemia or infarction. Gated images show normal global left ventricular systolic function with normal regional wall motion. Left ventricular ejection fraction is calculated to be 75%. CONCLUSIONS: 1. No evidence of any significant myocardial ischemia or infarction on this study. 2. Normal regional wall motion. 3. Normal global left ventricular systolic function with a calculated ejection fraction of 75%. Job ID: [id number] DocumentID: [id number] Dictated Date: 09/04/2022 20:18:20 Drip Pumper Date: 09/04/2022 22:24:00 Dictated By: AMBROSIO GUTIERREZ MD; MA; FACP; FACC;
== END ==
LOC: CARD 09:30
PROVIDERS: ATTEND Internal Medicine Cardiovascular Disease
DX: I35.1 Nonrheumatic aortic (valve) insufficiency (principal)
CPT/HCPCS: 78452; 93017; A9502; C8929; 93306

== ENCOUNTER → 2023-03-06 | Outpatient (CLI) | payer MEDICARE ==
[~2023-03-06] MED LIST changes: +FAMO-356 PO; -FAMO20TA3 PO; -REGADENOSON 0.4 MG/5 ML SYR (LEXISCAN) IV ONE
--- NOTE | 2023-03-07 09:39 | Diagnostic Imaging Report ---
INDICATION: Routine screening. Comparison is made with prior mammogram 02/23/2022 and 02/06/2021. 2-D and 3-D bilateral screening mammography was performed with CAD. Scattered fibroglandular densities are identified bilaterally. Nodular densities in the left breast are stable. Oil cyst on the right again noted and appear stable. No new mass or malignant-appearing microcalcifications are identified. Axillae are unremarkable. IMPRESSION: No mammographic features suspicious for malignancy are identified. ACR BI-RADS Category 2: Benign findings. Result letter will be mailed to the patient. Note: At least 10% of breast cancer is not imaged by mammography. BI-RADS Category 2 Dictated by: Dictated on workstation # [id number]
== END ==
LOC: RAD 14:17
PROVIDERS: ATTEND Family Medicine
DX: Z12.31 Encounter for screening mammogram for malignant neoplasm of breast (principal)
CPT/HCPCS: 77063; 77067